=== PATIENT | female | born 2000 | race Caucasian/White ===

== ENCOUNTER 2019-07-08 18:15 | Emergency (ER) | payer OTHER, SELFPAY ==
--- NOTE | 2019-07-08 18:23 | ED.FEMALEGU ---
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 Patient states she started with white clumpy discharge on Saturday and she did take a dose of Diflucan that she had from the past. Patient states that she has had these before and the symptoms are similar. However patient states that the itching in the discharge did not completely clear up with the dose of Diflucan. Patient states that she has had some intermittent lower abdominal cramping however she is not sure if that is due to trying to start her menstrual cycle . Patient states that she had an IUD taken out in May and there is a possibility that she could be or symptomatic due to starting her menstrual cycle. Patient denies any dysuria, nausea, vomiting, low back pain. Patient denies any other acute complaints. No acute distress noted. Patient read the plan of care. Related Data Home Medications Medication Instructions Recorded Confirmed bupropion HCl 150 mg PO DAILY 07/08/19 07/08/19 bupropion HCl 300 mg PO DAILY 07/08/19 07/08/19 clonazepam 1 mg PO DIRECTED 07/08/19 07/08/19 doxepin 10 mg PO DAILY 07/08/19 07/08/19 ergocalciferol (vitamin D2) 1,250 mcg PO WEEKLY 07/08/19 07/08/19 escitalopram oxalate 20 mg PO DAILY 07/08/19 07/08/19 sumatriptan succinate 25 mg PO DIRECTED 07/08/19 07/08/19 trazodone 50 mg PO BID PRN 07/08/19 07/08/19 trazodone 100 mg PO HS 07/08/19 07/08/19 tretinoin 0.025 % TOPICAL HS 07/08/19 07/08/19 Allergies Allergy/AdvReac Type Severity Reaction Status Date / Time sulfamethoxazole Allergy Intermediate THROAT Verified 07/08/19 18:25 SWELLING trimethoprim Allergy Intermediate THROAT Verified 07/08/19 18:25 SWELLING amoxicillin Allergy Unknown Hives / Verified 07/08/19 18:25 Red Face Penicillins Allergy Unknown Hives / Verified 07/08/19 18:25 Red Face Review of Systems Review of Systems: Narrative: CONSTITUTIONAL: Denies fever, chills, or sweats. EYES: Denies visual changes, redness, or discharge. ENT: Denies rhinorrhea, congestion, sore throat, or otalgia. CARDIOVASCULAR: Denies chest pain, palpitations, or edema. RESPIRATORY: Denies cough or dyspnea. GASTROINTESTINAL: Reports of intermittent lower abdominal cramping without nausea, vomiting, diarrhea GENITOURINARY: Denies dysuria or hematuria. Reports of thick, white vaginal discharge and vaginal itching SKIN: Denies rash or itching. MUSCULOSKELETAL: Denies back pain, joint pain, or myalgia. NEUROLOGIC: Denies headache, numbness, or weakness. All other systems reviewed are negative, except as documented in HPI. PMFSH Comments At the time of my signature, I reviewed and agree with the nursing past medical, surgical, social, and family history. There is no relevant family history pertinent to the patient complaint. Exam Narrative: Exam Narrative: GENERAL: This is a well-nourished, well-developed patient, in no apparent distress. HEAD: normocephalic, atraumatic. EYES: PERRL. Sclera clear/white. Vision is grossly intact. EARS: External ears normal NOSE: External nose normal with no obvious nasal discharge THROAT: Mucous membranes moist NECK: Neck supple CARDIOVASCULAR: Regular rate and rhythm without murmurs, gallops, or rubs. RESPIRATORY: Clear to auscultation. Breath sounds equal bilaterally. No wheezes, rales, or rhonchi. GASTROINTESTINAL: Abdomen soft, non-tender, nondistended. : Deferred vaginal exam SKIN: warm, intact with no suspicious lesions or rash, good texture and turgor. NEURO: awake, alert, and oriented to person, place and time. There were no obvious focal neurologic abnormalities. EXTREMITIES: No clubbing, cyanosis, or edema. BACK: Negative bilateral CVA t
[2019-07-08 18:25] VITALS: BP 131/80; PULSE 108; RESP 20; TEMP 37; O2SAT 100
== END 2019-07-08 18:55 | disposition home or self-care (01) ==
PROVIDERS: Emergency Provider Nurse Practitioner Family; PCP Family Medicine
DX: B37.3 Candidiasis of vulva and vagina (principal)
CPT/HCPCS: 81003; 81025; 99213; G0463

== ENCOUNTER 2019-10-12 05:04 | Outpatient (CLI) | payer OTHER, SELFPAY ==
[2019-10-13 22:34] LABS: SARS-CoV-2 RNA PCR Negative
== END 2019-10-12 05:05 | disposition home or self-care (01) ==
LOC: ANHCOVIDDT 05:05
PROVIDERS: PCP Family Medicine; Visit Provider Obstetrics & Gynecology
DX: Z01.812 Encounter for preprocedural laboratory examination (principal); Z11.59 Encounter for screening for other viral diseases
CPT/HCPCS: 87635; C9803; U0003

== ENCOUNTER 2019-10-14 02:24 | Day surgery (SDC) | payer OTHER, SELFPAY ==
[2019-10-08 11:11] VITALS: BMI 29.2
--- NOTE | 2019-10-13 13:48 | WPDANESEPPF ---
Anes - Initial Pre Proc Eval Procedure: Operation Date: 10/14/19 13:30 Proposed Procedures p Diagnostic Laparoscopy - Efren Dietz MD Date/Time: 10/13/19 13:48 Surgeon: Efren Dietz MD Pre Op Diagnosis: Pelvic and Perineal Pain Patient Data Age: 19 Gender: F Height: 1.63 m Weight: 77.11 kg Allergies Allergy/AdvReac Type Severity Reaction Status Date / Time sulfamethoxazole Allergy Intermediate THROAT Verified 10/08/19 11:12 SWELLING trimethoprim Allergy Intermediate THROAT Verified 10/08/19 11:12 SWELLING amoxicillin Allergy Unknown Hives / Verified 10/08/19 11:12 Red Face Penicillins Allergy Unknown Hives / Verified 10/08/19 11:12 Red Face egg Allergy SWELLING, Verified 10/08/19 11:13 FEVER FLU VACCINE Allergy EGG ALLERGY Uncoded 10/08/19 11:13 Home Medications Medication Instructions Recorded Confirmed Type bupropion HCl 300 mg PO DAILY 07/08/19 10/08/19 History clonazepam 1 mg PO DIRECTED PRN 07/08/19 10/08/19 History doxepin 10 mg PO HS 07/08/19 10/08/19 History ergocalciferol (vitamin D2) 1,250 mcg PO WEEKLY 07/08/19 10/08/19 History sumatriptan succinate 25 mg PO DIRECTED PRN 07/08/19 10/08/19 History trazodone 100 mg PO HS 07/08/19 10/08/19 History albuterol sulfate 5 mg INHALATION Q6H PRN 10/08/19 10/08/19 History albuterol sulfate [ProAir HFA] 1 inh INHALATION QID PRN 10/08/19 10/08/19 History Patient hx anesthesia problems: none Family hx anesthesia problems: none PMFSH Past Medical History Medical History (Updated 10/13/19 @ 13:50 by Juanjose Churchill MD) Anxiety Asthma Chiari malformation Depression Overweight (BMI 25.0-29.9) Surgical History Surgical History (Updated 10/13/19 @ 13:49 by Juanjose Churchill MD) Hx of cholecystectomy Social History Social History Smoking status: Never smoker Spiritual care concerns: No Anes - Eval Final PreProcedure Day of Procedure 10/13/19 13:48 Patient weight: overweight Heart: regular rate and rhythm Lungs: clear to auscultation and normal air movement Airway: Mallampati scale class II Neurological: alert and oriented Last oral intake: >/= 8 hours ASA classification: II Emergent: no Anesthetic plan: proceed Anesthesia type and monitoring: general ETT Informed Consent: The patient's anesthetic plan and its attendant risks and benefits were discussed with the patient/family/POA. Questions were solicited and answers provided to the satisfaction of the patient/family/POA.
[2019-10-14] VITALS (10 sets, daily range): BP systolic 102–134; BP diastolic 61–106; PULSE 74–115; RESP 16–22; TEMP 36.4–36.8; O2SAT 97–100
[2019-10-14] MEDS: ACETAMINOPHEN 500 MG TABLET 1000 MG PO (11:30)
[2019-10-14] MEDS: LACTATED RINGERS 1,000 ML 30 ML IV CONT ×3 (11:30→14:43)
[2019-10-14] MEDS: KETOROLAC 15 MG/ML VIAL (*BKC) IV PUSH (11:30)
--- NOTE | 2019-10-14 11:33 | WPDHPUPDATE1 ---
History and Physical Update Update Date/Time: 10/14/19 11:33 History and Physical has been reviewed, including an updated exam of the patient. There are NO changes in the patient's condition. Risks, benefits, and alternatives have been discussed and questions answered. Patient agrees to proceed with procedure.
--- NOTE | 2019-10-14 14:09 | P.OP_ITS ---
Procedure Note - Detailed Date of procedure: 10/14/19 Pre-op diagnosis: Pelvic and Perineal Pain Post-op diagnosis: same (endometriosis, retrograde menstruation) Procedure performed: Diagnostic laparoscopy, radical resection of endometriosis, adhesiolysis 1 hour Description of procedure: The patient was taken the operating room. She was prepped and draped in the dorsal lithotomy position after induction of general anesthesia. A 5 mm left upper quadrant incision was made in the abdominal skin with a scalpel. A 5 mm trocar was inserted the intra-abdominal cavity under direct visualization of the scope. A 5 mm left lower quadrant incision was made with the scalp on the abdominal skin and a 5 mm trocar was inserted the intra- abdominal cavity under direct visualization of the scope. A 5 mm infraumbilical incision was made with scalpel and a 5 mm trocar was inserted into the intra- abdominal cavity under direct visualization of the scope. Using sharp and blunt dissection the peritoneum in the posterior cul-de-sac was completely removed with the exception the rectal peritoneum and the posterior uterine peritoneum superiorly. This was densely scarred and required an hour of adhesiolysis. The ureters were dissected out from the pelvic brim down to the uterine arteries. The pelvis was irrigated with copious amounts of normal saline. Interceed was placed over both sides of the posterior cul-de-sac. The pneumoperitoneum was reduced. The trocars were removed. The patient was taken recovery room stable condition. Sponge lap and needle counts were correct x2. Anesthesia: GETA Surgeon: Efren Dietz MD Estimated blood loss (mL): 100 Drains: No Packing: No Complications: No immediate complications Condition: stable Disposition: PACU Findings: hemoperitoneum, diffuse peritoneal endometrial implants throughout the posterior cul-de-sac. There was some small endometrial implants on the anterior left side of the pelvis. The tubes and ovaries and uterus appeared normal
[2019-10-14] MEDS: MIDAZOLAM HCL 2 MG/2 ML VIAL 1 MG IV PUSH (14:23)
--- NOTE | 2019-10-14 15:01 | SUR.PHASEI ---
1410 pt very restless, wouldn't open eyes and follow commands, anxious. shruthi blanco, at bedside along with christy hawkins. 1mg versed iv push given and 0.5 mg iv push fentanyl given. trying to get pt too take deep breaths and calm down. 1415 pt seems to be doing better breathing more regular, vss, on roomair. still having 10/10 sharp pain in abdomen. 1420 pt resting now, vss, on room air
[2019-10-14] MEDS: ONDANSETRON INJ 4 MG/2 ML VIAL IV PUSH (15:35)
== END 2019-10-14 16:00 | disposition home or self-care (01) ==
PROVIDERS: PCP Family Medicine; Visit Provider Obstetrics & Gynecology
PROC: (CPT 49320; principal; 2019-10-14 13:30)
DX: R10.2 Pelvic and perineal pain (principal); N80.3 Endometriosis of pelvic peritoneum; J45.909 Unspecified asthma, uncomplicated; F41.8 Other specified anxiety disorders
CPT/HCPCS: 58662; 87635; 88305; A9270; C9803; J1100; J1170; J1200; J1885; J2250; J2405; J2704; J2710; J3010; J7120; U0003

== ENCOUNTER 2021-04-17 14:47 | Emergency (ER) | payer OTHER, SELFPAY ==
--- NOTE | ~2021-04-17 | US_ITS ---
EXAMINATION: US abdomen limited EXAM DATE: 04/17/2021 18:43 INDICATION: Transaminitis. TECHNIQUE: Multiple grayscale and Doppler images of the abdomen right upper quadrant were obtained (b y a technologist who performed the scan) and subsequently reviewed. There is no prior study for jeanie de león. FINDINGS: The pancreatic head and body are normal in appearance. The pancreatic tail is not visualized. The l iver has normal echogenicity and contour. There are no focal liver lesions identified. There is no evidence of intrahepatic biliary duct dilation. Portal venous flow was seen in the hepatopedal, nor mal direction and has normal Doppler waveform. No right-sided hydronephrosis. Common bile duct measures 3 mm, which is normal. The gallbladder fossa is unremarkable. IMPRESSION: 1. Unremarkable abdominal ultrasound exam. Reviewed, dictated and finalized at location G. W
[2021-04-17 14:51] VITALS: BP 117/86; PULSE 123; RESP 16; O2SAT 99
[2021-04-17 16:03] LABS: Add Urine Microscopic? YES; Appearance Urine Cloudy (Clear); Basophils Percent Auto 0.2 % (0.2-1.2); Bilirubin Urine Negative (Negative); Blood Urine Negative (Negative); Color Urine Yellow (Yellow); Eosinophils Absolute Auto 0.1 K/mm3 (0-0.3); Eosinophils Percent Auto 0.6 % (0-4.4); Glucose Urine UA Negative (Negative); Hematocrit 43.9 % (37.0-47.0); Hemoglobin 14.8 g/dL (12.0-15.0); Immature Granulocyte Absolute 0.02 K/mm3 (0.00-0.031); Immature Granulocyte Percent A 0.2 % (0-0.5); Ketones Urine Negative (Negative); Leukocyte Esterase Ur Trace LEU/UL (Negative); Lymphocytes Percent Auto 27.7 % (18.3-44.2); Mean Corpuscular HGB Conc 33.7 g/dl (32-36); Mean Corpuscular Hemoglobin 30.7 pg (26-34); Mean Corpuscular Volume 91.1 fl (80-100); Mean Platelet Volume 9.5 fl (7.4-10.4); Monocytes Absolute Auto 0.9 K/mm3 (0.1-0.6); Monocytes Percent Auto 8.5 % (2.6-8.5); Mucus Urine Heavy /lpf; Neutrophils Absolute Auto 6.6 K/mm3 (1.3-6.7); Neutrophils Percent Auto 62.8 % (45.5-73.1); Nitrate Urine Negative (Negative); Platelet Count Result 342 k/mm3 (150-375); Protein Urine Negative (Negative); Red Blood Count 4.82 M/mm3 (4.2-5.4); Red Cell Distribution Width 12.6 % (11.5-14.5); Specific Grav Ur 1.023 (1.001-1.035); Squamous Epithelial Cell Urine Many /hpf (Few); Urobilinogen Urine Negative mg/dL (<2.0); WBC Urine 0-3 /hpf; White Blood Count 10.5 K/mm3 (4.5-10.0)
[2021-04-17] MEDS: SODIUM CHLORIDE 0.9% IV 1,000 ML 999 ML IV CONT (16:10)
[2021-04-17 16:16] LABS: Alanine Aminotransferase 43 U/L (4-35); Albumin Level 4.8 g/dL (3.5-5.1); Alkaline Phosphatase 87 U/L (38-126); Anion Gap 7 mmol/L (8-16); Aspartate Amino Transferase 52 U/L (14-36); Bilirubin,Total 0.7 mg/dL (0.2-1.3); Blood Urea Nitrogen 5 mg/dL (7-17); Calcium 9.8 mg/dL (8.4-10.2); Carbon Dioxide 21 mmol/L (22-30); Chloride 106 mmol/L (98-107); Estimated CRCL calculation 184 ml/min; Estimated Glomerular Filt Rate > 60; Glucose 92 mg/dL (65-110); Lipase 150 U/L (23-300); Potassium 3.9 mmol/L (3.4-5.0); Sodium 134 mmol/L (137-145)
--- NOTE | 2021-04-17 16:32 | ED.HA ---
HPI - Headache General Chief Complaint: Headache Stated Complaint: N/V 10WEEKS PREG Time Seen by Provider: 04/17/21 15:33 Source: patient Mode of arrival: ambulatory Limitations: no limitations History of Present Illness HPI Narrative: This is a 20 year old , about 9 weeks , that presents to the ER for nausea and vomiting noted over the last couple of days. Also reports a migraine. Reports a pounding headache. Does report history of migraines. She took Tylenol this morning this little relief. Her OB is Dr. Dietz. She has had a normal US this . Denies pelvic pain or vaginal bleeding. Related Data Home Medications Medication Instructions Recorded Confirmed bupropion HCl 300 mg PO DAILY 07/08/19 10/14/19 clonazepam 1 mg PO DIRECTED PRN 07/08/19 10/14/19 ergocalciferol (vitamin D2) 1,250 mcg PO WEEKLY 07/08/19 10/14/19 sumatriptan succinate 25 mg PO DIRECTED PRN 07/08/19 10/08/19 albuterol sulfate 5 mg INHALATION Q6H PRN 10/08/19 10/08/19 albuterol sulfate [ProAir HFA] 1 inh INHALATION QID PRN 10/08/19 10/08/19 quetiapine 25 mg PO HS 10/14/19 10/14/19 Allergies Allergy/AdvReac Type Severity Reaction Status Date / Time amoxicillin Allergy Severe Hives / Verified 10/14/19 11:39 Red Face Penicillins Allergy Severe Hives / Verified 10/14/19 11:39 Red Face egg Allergy Intermediate SWELLING, Verified 10/14/19 11:39 FEVER Influenza Virus Vaccines Allergy Intermediate Egg Allergy Verified 04/17/21 15:39 sulfamethoxazole Allergy Intermediate THROAT Verified 10/08/19 11:12 SWELLING trimethoprim Allergy Intermediate THROAT Verified 10/08/19 11:12 SWELLING Review of Systems Review of Systems: CONSTITUTIONAL: Denies fever GASTROINTESTINAL: Reports nausea and vomiting. Denies abdominal pain NEUROLOGIC: Reports headache. Denies numbness, or weakness. All systems reviewed & are unremarkable except as noted in HPI and below PMFSH Past Medical History Medical History (Updated 04/17/21 @ 19:52 by Glo Irene PA-C) Anxiety Asthma Chiari malformation Depression Overweight (BMI 25.0-29.9) Surgical History Surgical History (Updated 10/13/19 @ 13:49 by Juanjose Churchill MD) Hx of cholecystectomy Social History Social History Smoking status: Never smoker Spiritual care concerns: No Exam Narrative: GENERAL: Well-appearing, well-nourished, and in no acute distress. HEAD: Normocephalic, atraumatic. EYES: PERRLA and EOMI. ENT: Nares clear, no rhinorrhea or epistaxis. Mucous membranes moist. Oropharynx without tonsillar hypertrophy exudate or other lesions. Bilateral TMs pearly johansen non-bulging NECK: Supple. No adenopathy or masses. CHEST: Clear to auscultation. No respiratory distress. No wheezes rales or rhonchi HEART: Regular rate and rhythm. No murmur heard. Normal peripheral pulses. EXTREMITIES: Normal range of motion. No edema. Strength equal in bilateral upper and lower extremities (5/5) SKIN: Warm, dry, no rash. NEURO: No focal deficits. Alert and oriented x3. Cranial nerves II through XII grossly intact. Normal heel to lo PSYCH: Normal mood and affect Course Consultations Consultation #1: Spoke with Dr. Dietz about patient and workup who will follow up in clinic. Date: 04/17/21 Time: 19:49 Vital Signs Vital signs: Vital Signs Pulse Rate 123 H 04/17/21 14:51 Respiratory Rate 16 04/17/21 14:51 Blood Pressure 117/86 04/17/21 14:51 Pulse Oximetry 99 04/17/21 14:51 Pulse Rate 123 H 04/17/21 14:51 Respiratory Rate 16 04/17/21 14:51 Blood Pressure 117/86 04/17/21 14:51 Pulse Oximetry 99 04/17/21 14:51 MDM - Headache MDM Narrative Medical decision making narrative: Patient presents to the emergency department for nausea and vomiting of . Also reporting a migraine over the last couple of days. She is afebrile and nontoxic-appearing. Patient is neurologically intact. Known history of migraines and sees neurology f
[2021-04-17] MEDS: METOCLOPRAMIDE HCL INJ 10 MG/2 ML VIAL IV PUSH (16:46)
[2021-04-17] MEDS: diphenhydrAMINE HCl INJ 50 MG/ML VIAL 25 MG IV PUSH (16:46)
--- NOTE | 2021-04-17 19:19 | PC.NURSE ---
Patient given saltine crackers and a last mist.
[2021-04-17 19:47] VITALS: TEMP 36.5
== END 2021-04-17 20:11 | disposition home or self-care (01) ==
PROVIDERS: Physician Assistant; Emergency Provider Family Medicine; PCP Family Medicine
DX: O21.9 Vomiting of pregnancy, unspecified (principal); O99.351 Diseases of the nervous system complicating pregnancy, first trimester; G43.909 Migraine, unspecified, not intractable, without status migrainosus; O99.511 Diseases of the respiratory system complicating pregnancy, first trimester; J45.909 Unspecified asthma, uncomplicated; O99.341 Other mental disorders complicating pregnancy, first trimester; F41.9 Anxiety disorder, unspecified; F32.A Depression, unspecified; Z3A.09 9 weeks gestation of pregnancy
CPT/HCPCS: 36415; 76705; 80053; 81001; 83690; 84702; 85025; 87804; 96361; 96374; 96375; 99284; J0131; J1200; J2765; J7030

== ENCOUNTER 2021-08-10 18:15 | Emergency (ER) | payer OTHER, SELFPAY ==
[2021-08-10 18:20] VITALS: BP 126/82; PULSE 107; RESP 18; TEMP 36.6; O2SAT 100
--- NOTE | 2021-08-10 18:31 | ED.EAR ---
HPI - Ear Problem General Chief complaint: Ear Stated complaint: Ear Pain Time Seen by Provider: 08/10/21 18:27 Source: patient and RN notes reviewed Mode of arrival: ambulatory Limitations: no limitations History of Present Illness HPI Narrative: 21-year-old female who is 27 weeks presents concern for bilateral ear pain. Reports it started yesterday. She reports she has chronic sinus congestion and drainage. She reports mild sore throat. She denies fever, bodies, chills, sweats, cough 20, shortness of breath. She denies any other [id number] intervention MD Complaint: ear pain Related Data Home Medications Medication Instructions Recorded Confirmed Tablet 1 tablet PO DAILY 08/10/21 08/10/21 Allergies Allergy/AdvReac Type Severity Reaction Status Date / Time amoxicillin Allergy Severe Hives / Verified 08/10/21 18:17 Red Face Penicillins Allergy Severe Hives / Verified 08/10/21 18:17 Red Face egg Allergy Intermediate SWELLING, Verified 08/10/21 18:17 FEVER Influenza Virus Vaccines Allergy Intermediate Egg Allergy Verified 08/10/21 18:17 sulfamethoxazole Allergy Intermediate THROAT Verified 08/10/21 18:17 SWELLING trimethoprim Allergy Intermediate THROAT Verified 08/10/21 18:17 SWELLING Review of Systems Review of Systems: CONSTITUTIONAL: Denies malaise, chills, sweats, or fever. EYES: Denies visual changes, redness, or discharge. ENT: Reports rhinorrhea, congestion, sore throat, bilateral ear pain CARDIOVASCULAR: Denies chest pain, palpitations, or edema. RESPIRATORY: Denies cough. Denies dyspnea. GASTROINTESTINAL: Denies abdominal pain, nausea, vomiting, diarrhea SKIN: Denies rash or itching. MUSCULOSKELETAL: Denies myalgia. NEUROLOGIC: Denies headache. All systems reviewed & are unremarkable except as noted in HPI and below PMFSH Past Medical History Medical History (Updated 08/10/21 @ 18:36 by Paula Estrada NP) Anxiety Asthma Chiari malformation Depression Overweight (BMI 25.0-29.9) Surgical History Surgical History (Updated 10/13/19 @ 13:49 by Juanjose Churchill MD) Hx of cholecystectomy Social History Social History Smoking status: Never smoker Spiritual care concerns: No Comments At time of signature, agree with nursing past medical, surgical, social and family history. There is no relevant family history pertinent to the presenting complaint Exam Narrative: GENERAL: Well-appearing, well-nourished, and in no acute distress. HEAD: Normocephalic EYES: PERRLA, conjunctivae clear ENT: Nares clear, clear discharge. Mucous membranes moist. TM pearly johansen with dull light reflex bilaterally; no tragal tenderness. Oropharynx not erythematous without lesions. Tonsils not enlarged and without exudate, no drooling, no hoarseness, no trismus, uvula midline. NECK: Supple. No lymphadenopathy CHEST: Clear to auscultation, breath sounds equal. No wheezing, rhonchi, rales, or stridor. No respiratory distress, speaks in full sentences. HEART: Regular rate and rhythm. No murmur heard. SKIN: Warm, dry, no rash. NEURO: Alert and oriented x3. PSYCH: Normal mood and affect Course Course Emergency Course: Patient is aware of diagnosis, understands and agrees to treatment plan. Anticipatory guidance given. Patient agrees to follow-up as directed and is aware of reasons to seek care at the emergency department. Portions of this record may have been created with voice recognition software Level of Care: Express Care Visit Vital Signs Vital signs: Vital Signs Temperature 97.9 F 08/10/21 18:20 Pulse Rate 107 H 08/10/21 18:20 Respiratory Rate 18 08/10/21 18:20 Blood Pressure 126/82 08/10/21 18:20 Pulse Oximetry 100 08/10/21 18:20 Oxygen Delivery Room Air 08/10/21 18:20 Temperature 97.9 F 08/10/21 18:20 Pulse Rate 107 H 08/10/21 18:20 Respiratory Rate 18 08/10/21 18:20 Blood Pressure 126/82 08/10/21 18:20 Pulse Oxim
== END 2021-08-10 18:43 | disposition home or self-care (01) ==
PROVIDERS: Emergency Provider Nurse Practitioner; PCP Family Medicine
DX: H69.90 Unspecified Eustachian tube disorder, unspecified ear (principal); J45.909 Unspecified asthma, uncomplicated
CPT/HCPCS: 99211; G0463

== ENCOUNTER 2021-09-07 15:18 | Observation (INO) | payer OTHER, BC, SELFPAY ==
[2021-09-07 15:46] VITALS: BP 129/78; PULSE 93
[2021-09-07 16:01] VITALS: BP 118/70; PULSE 86
[2021-09-07 16:04] LABS: Add Urine Microscopic? YES; Appearance Urine Slightly Cloudy (Clear); Bilirubin Urine Negative (Negative); Blood Urine Negative (Negative); Color Urine Yellow (Yellow); Glucose Urine UA Negative (Negative); Ketones Urine Negative (Negative); Leukocyte Esterase Ur 1+ LEU/UL (NEGATIVE); Nitrate Urine Negative (Negative); Protein Urine Negative (Negative); Urobilinogen Urine 0.2 mg/dL (<2.0); pH Urine 6.5 (5.0-9.0)
[2021-09-07 16:10] LABS: Bacteria Urine 1+ /hpf; Mucus Urine Rare /lpf; Squamous Epithelial Cell Urine Many /hpf (Few); WBC Urine 0-3 /hpf (0-3)
[2021-09-07 16:16] VITALS: BP 119/72; PULSE 85
--- NOTE | 2021-09-07 16:36 | OBADM ---
This patient, Cee Hodge, admitted to the OB room OB Post 112 for observation. Patient/family oriented to hospital policies and general routines including ID bracelet, bed and alarms, visiting hours, pain management, procedures, bathroom and other care routines, personal items, smoking policy, room service/diet, and visiting hours. Patient/Family are encouraged to report perceived risks to care and to ask questions if they do not understand what they are told or what they should do.
--- NOTE | 2021-09-07 16:37 | PC.NURSE ---
[id number]- Spoke with Dr. Dietz, Orders to do SVE and discharge to home.
--- NOTE | 2021-10-02 22:03 | PM.OBTRLD ---
OB - Triage/Final Diagnosis Visit Information Comments/Additional reasons for admission: I have assessed the risk for this patient, Cee Hodge, and determined that she would benefit from observation care. Evaluation Laboratory results: Laboratory Tests 09/07/21 15:39 Urine Color Yellow Urine Appearance Slightly cloudy Urine pH 6.5 Ur Specific [place] 1.010 Urine Protein Negative Urine Glucose (UA) Negative Urine Ketones Negative Ur Blood (Man) Negative Urine Nitrate Negative Urine Bilirubin Negative Urine Urobilinogen 0.2 Ur Leukocyte Esterase 1+ H Urine RBC 3-5 H Urine WBC 0-3 Ur Squamous Epith Cells Many H Urine Bacteria 1+ H Urine Mucus Rare Final Diagnosis (1) False labor: Code(s): O47.9 - False labor, unspecified Status: Acute
== END 2021-09-07 16:35 | disposition home or self-care (01) ==
PROVIDERS: Admitting Provider Obstetrics & Gynecology; PCP Family Medicine; Visit Provider Obstetrics & Gynecology
DX: O47.03 False labor before 37 completed weeks of gestation, third trimester (principal); Z3A.31 31 weeks gestation of pregnancy
CPT/HCPCS: 81001; 87086; 87088; G0378; G0379

== ENCOUNTER 2021-10-08 20:13 | Outpatient (CLI) | payer OTHER, BC, SELFPAY ==
[2021-10-08] MEDS: METOCLOPRAMIDE HCL 10 MG TABLET PO (22:45)
[2021-10-08] MEDS: diphenhydrAMINE HCl CAP 25 MG CAPSULE PO (22:45)
[2021-10-08 22:49] VITALS: BMI 34.3
== END 2021-10-08 23:00 | disposition home or self-care (01) ==
PROVIDERS: PCP Family Medicine; Visit Provider Obstetrics & Gynecology
DX: O47.9 False labor, unspecified (principal); Z3A.00 Weeks of gestation of pregnancy not specified
CPT/HCPCS: 99199; A9270

== ENCOUNTER 2021-10-15 21:14 | Inpatient (IN) | payer OTHER, BC, SELFPAY ==
[2021-10-15] VITALS (7 sets, daily range): BP systolic 136–144; BP diastolic 81–93; PULSE 74–99; TEMP 36.8–37
--- NOTE | ~2021-10-15 | CT_ITS ---
EXAMINATION: CT brain wo con DATE: 10/16/2021 08:36 INDICATION: Headache, preeclampsia. Chiari malformation. TECHNIQUE: Computed tomography (CT) of the head was performed without intravenous contrast. The mA wa s adjusted according to patient size. Iterative reconstruction technique was employed. Exam dose: 52 9.67 mGy-cm total exam DLP. COMPARISON: None FINDINGS: Status post lower mid occipital craniectomy, due to history of Chiari malformation (abnorma l protrusion of cerebellum into foramen magnum). No hydrocephalus. No intracranial mass lesion or hemorrhage, midline shift or mass effect. Normal johansen-white matter differentiation. No subdural or epidural hematoma. The orbital contents are unremarkable. No fracture or bone destruction of the cranial vault. Mastoid air cells and included paranasal sinuses are normally developed and aerated. IMPRESSION: Status post posterior fossa decompression surgery (midline lower occipital craniectomy) for Chiari I malformation No significant intracranial abnormality Reviewed, dictated and finalized at [facility]. Reviewed, dictated and finalized at [facility]. IMPRESSION: Status post posterior fossa decompression surgery (midline lower o ccipital craniectomy) for Chiari I malformation No significant intracranial abnormality
--- NOTE | 2021-10-15 19:37 | PC.NURSE ---
Clarified medication order for pain medication with Dr. Dietz. Order for 10mg of oxycodone PO ordered.
[2021-10-15 20:02] LABS: Basophils Percent Auto 0.2 % (0.2-1.2); Eosinophils Percent Auto 0.4 % (0-4.4); Hematocrit 32.7 % (37.0-47.0); Hemoglobin 10.4 g/dL (12.0-15.0); Immature Granulocyte Absolute 0.04 K/mm3 (0.00-0.031); Immature Granulocyte Percent A 0.4 % (0-0.5); Lymphocytes Absolute Auto 2.17 K/mm3 (0.9-3.2); Lymphocytes Percent Auto 20.6 % (18.3-44.2); Mean Corpuscular HGB Conc 31.8 g/dl (32-36); Mean Corpuscular Hemoglobin 27.4 pg (26-34); Mean Corpuscular Volume 86.1 fl (80-100); Mean Platelet Volume 11.2 fl (7.4-10.4); Monocytes Absolute Auto 0.9 K/mm3 (0.1-0.6); Monocytes Percent Auto 8.3 % (2.6-8.5); Neutrophils Absolute Auto 7.4 K/mm3 (1.3-6.7); Neutrophils Percent Auto 70.1 % (45.5-73.1); Platelet Count Result 270 k/mm3 (150-375); Red Cell Distribution Width 13.4 % (11.5-14.5); White Blood Count 10.5 K/mm3 (4.5-10.0)
[2021-10-15] MEDS: oxyCODONE HCL (*CRX) 5 MG TAB IR 10 MG PO (20:03)
[2021-10-15] MEDS: BETAMETHASONE SOD PHOS/ACETATE 30 MG/5 ML VIAL 12 MG IM (20:04)
[2021-10-15 20:13] LABS: Alanine Aminotransferase 13 U/L (6-35); Albumin Level 3.4 g/dL (3.5-5.1); Alkaline Phosphatase 194 U/L (38-126); Anion Gap 11 mmol/L (8-16); Aspartate Amino Transferase 23 U/L (14-36); Bilirubin,Total 0.5 mg/dL (0.2-1.3); Blood Urea Nitrogen 3 mg/dL (7-17); Calcium 8.8 mg/dL (8.4-10.2); Carbon Dioxide 21 mmol/L (22-30); Chloride 106 mmol/L (98-107); Estimated Glomerular Filt Rate > 60; Glucose 95 mg/dL (65-110); Potassium 2.9 mmol/L (3.4-5.0); Sodium 138 mmol/L (137-145)
--- NOTE | 2021-10-15 20:21 | PC.NURSE ---
Dr. Dietz in unit, lab results reviewed with Dr. Ditez. No new orders.
[2021-10-15 20:26] LABS: Appearance Urine Clear (Clear); Bilirubin Urine Negative (Negative); Blood Urine Negative (Negative); Color Urine Yellow (Yellow); Glucose Urine UA Negative (Negative); Ketones Urine Negative (Negative); Leukocyte Esterase Ur Negative LEU/UL (Negative); Nitrate Urine Negative (Negative); Protein Urine Negative (Negative); Urobilinogen Urine 0.2 mg/dL (<2.0)
[2021-10-15 20:29] LABS: Bacteria Urine Trace /hpf; Creatinine Urine 54.8 mg/dL; Squamous Epithelial Cell Urine Many /hpf (Few); Total Protein Urine Random 18 mg/dL; Transitional Epi Cells Urine Rare /hpf (None Seen); Ur Ttl Prot Creatinine Ratio 0.33 mg/mg (0-0.20)
[2021-10-15 20:37] LABS: Add Urine Microscopic? YES
--- NOTE | 2021-10-15 20:39 | PM.IMHP ---
H&P: HPI History of Present Illness Date/Time: 10/15/21 20:39 Chief Complaint: headache Narrative: this patient is a 21-year-old at 36 weeks gestation with a history of Chiari malformation and neurosurgery. She presented complaining of headache. Her is also complicated by gestational hypertension. The headache is a frontal headache it is pulsatile. She does not state that is the worst headache she has ever had. She reports some increased swelling. She reports some blurry vision. She denies any chest pain, shortness of breath. She denies any nausea, vomiting, fever, chills. She denies any loss of fluid, she denies any contractions, she denies any vaginal bleeding. Review of Systems Review of Systems: All systems reviewed & are unremarkable except as noted in HPI and below Constitutional: Constitutional: Denies chills, Denies fatigue, Denies fever(s) and Denies weakness Eyes: Eyes: Denies blurry vision, Denies change in vision, Denies loss of peripheral vision, Denies loss of vision, Denies other visual disturbances and Denies eye pain ENT: Denies vertigo, Denies dizziness, Denies hearing loss, Denies mouth pain, Denies nasal obstruction, Denies neck mass and Denies neck pain Cardiovascular: Cardiovascular: Denies chest pain, Denies diaphoresis, Denies syncope, Denies leg edema and Denies dyspnea Respiratory: Respiratory: Denies chest congestion, Denies cough, Denies hemoptysis, Denies dyspnea and Denies wheezing Gastrointestinal: Gastrointestinal: Denies abdominal pain, Denies constipation, Denies diarrhea, Denies nausea and Denies vomiting Genitourinary: Genitourinary: Denies hematuria, Denies change in libido, Denies nocturia, Denies genital lesions, Denies flank pain and Denies urinary urgency Musculoskeletal: Musculoskeletal: Denies abnormal gait, Denies back pain, Denies myalgias, Denies arthralgias, Denies joint swelling, Denies muscle weakness and Denies neck pain Integumentary/Breasts: Skin/Breast: Denies swelling, Denies breast pain, Denies breast mass, Denies dry skin, Denies nipple discharge, Denies unusual bruising and Denies jaundice Neurologic: Denies Neuro-related abnormal movements, Denies Abnormal speech present, Denies abnormal gait, Denies behavioral changes, Denies confusion, Denies vertigo, Denies dizziness, Denies syncope, Denies loss of vision, Denies memory loss, Denies convulsions and Denies weakness Psychiatric: Psychiatric: Denies abnormal sleep pattern, Denies behavioral changes, Denies change in libido, Denies confusion, Denies depression, Denies anhedonia and Denies memory loss Endocrine: Endocrine: Reports no additional endocrine complaints, Denies change in libido and Denies fatigue Hematologic/Lymphatic: Hematologic/Lymphatic: Reports no additional hematologic/lymphatic complaints Allergic/Immunologic: Allergic/Immunologic: Reports no additional allergic/immunologic complaints and Denies wheezing PMFSH Past Medical History Medical History (Updated 10/15/21 @ 20:42 by Efren Dietz MD) Anxiety Asthma Chiari malformation Depression Overweight (BMI 25.0-29.9) Surgical History Surgical History (Updated 10/13/19 @ 13:49 by Juanjose Churchill MD) Hx of cholecystectomy Family History Family History (Updated 10/13/21 @ 15:55 by Benito Baeza RN) Father Hypertension High cholesterol Mother Hypertension Cholelithiases Gilbert syndrome Mitral valve prolapse High cholesterol Migraines Endometriosis Kidney stones Cerebrovascular accident Sibling Migraines Asthma Grandparent Hypertension Ovarian cancer Lung cancer Pancreatic cancer Grandparent Diabetes mellitus Hypotension Renal cancer Gynecomastia, male Grandparent Cerebrovascular accident Social History Social History Smoking status: Never smoker Substance use: never Spiritual care concerns: No Meds Home Medications and Allergies Home Medications Medication
--- NOTE | 2021-10-15 21:13 | PC.NURSE ---
Updated Dr. Dietz of lab results. Patient states headache remains after pain medication. HIP WNL. Patient denies any vision changes or epigastric pain. Order to keep patient for evaluation over night, order received.
[2021-10-15] MEDS: CYCLOBENZAPRINE HCL 10 MG TABLET PO (22:11)
[2021-10-16] VITALS (14 sets, daily range): BP systolic 118–146; BP diastolic 71–94; PULSE 88–114; RESP 16; TEMP 36.8–37.2
[2021-10-16] MEDS: ACETAMINOPHEN 500 MG TABLET 1000 MG PO (02:52)
[2021-10-16] MEDS: oxyCODONE HCL (*CRX) 5 MG TAB IR 10 MG PO ×2 (02:53→10:30)
[2021-10-16] MEDS: CYCLOBENZAPRINE HCL 10 MG TABLET PO ×2 (04:11→18:32)
--- NOTE | 2021-10-16 08:12 | PM.OBPNVD ---
OB - PN: Subj Subjective Date/time seen: 10/16/21 08:12 Headache, frontal, throbbing, apparently comfortable by appearance, blurry vision, no contractions, vaginal bleeding, loss of fluid OB - PN: Obj Data Labs CBC & Chem 7: 10/15/21 19:54 10/15/21 19:54 Labs: Laboratory Results - last 24 hr 10/15/21 10/15/21 10/15/21 19:54 19:54 19:54 WBC 10.5 H RBC 3.80 L Hgb 10.4 L D Hct 32.7 L MCV 86.1 MCH 27.4 MCHC 31.8 L RDW 13.4 Plt Count 270 MPV 11.2 H Immature Gran % (Auto) 0.4 Neut % (Auto) 70.1 Lymph % (Auto) 20.6 [place] % (Auto) 8.3 Eos % (Auto) 0.4 Baso % (Auto) 0.2 Lymph # (Auto) 2.17 [place] # (Auto) 0.9 H Eos # (Auto) 0.0 Baso # (Auto) 0.0 Abs Immat Gran (auto) 0.04 H Absolute Neuts (auto) 7.4 H Absolute Nucleated RBC 0.0 Nucleated RBC % 0.0 Sodium 138 Potassium 2.9 L Chloride 106 Carbon Dioxide 21 L Anion Gap 11 BUN 3 L Creatinine 0.60 L Estim Creat Clear Calc Not Reportable Estimated GFR > 60 Glucose 95 Uric Acid 4.0 Calcium 8.8 Total Bilirubin 0.5 AST 23 ALT 13 Alkaline Phosphatase 194 H Total Protein 6.0 L Albumin 3.4 L Urine Color Urine Appearance Urine pH Ur Specific [place] Urine Protein Urine Glucose (UA) Urine Ketones Ur Blood (Man) Urine Nitrate Urine Bilirubin Urine Urobilinogen Leukocyte Esterase Rfl Urine RBC Urine WBC Ur Squamous Epith Cells Ur Transition Epith Cell Urine Bacteria U Random Total Protein 18 Urine Creatinine 54.8 Protein/Creat Ratio 2 0.33 H 10/15/21 19:54 WBC RBC Hgb Hct MCV MCH MCHC RDW Plt Count MPV Immature Gran % (Auto) Neut % (Auto) Lymph % (Auto) [place] % (Auto) Eos % (Auto) Baso % (Auto) Lymph # (Auto) [place] # (Auto) Eos # (Auto) Baso # (Auto) Abs Immat Gran (auto) Absolute Neuts (auto) Absolute Nucleated RBC Nucleated RBC % Sodium Potassium Chloride Carbon Dioxide Anion Gap BUN Creatinine Estim Creat Clear Calc Estimated GFR Glucose Uric Acid Calcium Total Bilirubin AST ALT Alkaline Phosphatase Total Protein Albumin Urine Color Yellow Urine Appearance Clear Urine pH 7.0 Ur Specific [place] 1.010 Urine Protein Negative Urine Glucose (UA) Negative Urine Ketones Negative Ur Blood (Man) Negative Urine Nitrate Negative Urine Bilirubin Negative Urine Urobilinogen 0.2 Leukocyte Esterase Rfl Negative Urine RBC 3-5 H Urine WBC 4-6 H Ur Squamous Epith Cells Many H Ur Transition Epith Cell Rare Urine Bacteria Trace U Random Total Protein Urine Creatinine Protein/Creat Ratio 2 OB - PN A/P Assessment and Plan (1) Headache: Code(s): R51.9 - Headache, unspecified Status: Acute (2) Chiari malformation: Status: Acute Plan 21-year-old 1 at 36 weeks gestation with preeclampsia, headache, Chiari malformation. Uncertain of headache is secondary to Chiari malformation or a symptom of severe preeclampsia. Pressures are not suggestive of severe preeclampsia. Will get Neurology to look at her today. will get a CT of her head. she received 1 dose of steroids. There is reassuring status. Time Spent With Patient Time: Total time spent is greater than 50% in coordination of care (as documented) at patient's floor/unit and/or counseling patient: Review of Systems Review of Systems: All systems reviewed & are unremarkable except as noted in HPI and below Constitutional: Constitutional: Denies chills, Denies fatigue, Denies fever(s) and Denies weakness Eyes: Eyes: Denies blurry vision, Denies change in vision, Denies loss of peripheral vision, Denies loss of vision, Denies other visual disturbances and Denies eye pain ENT: Denies vertigo, Denies dizziness, Denies hearing loss, Denies mouth pain, Denies nasal obstr
[2021-10-16 18:23] LABS: Hematocrit 31.5 % (37.0-47.0); Hemoglobin 10.1 g/dL (12.0-15.0); Mean Corpuscular HGB Conc 32.1 g/dl (32-36); Mean Corpuscular Hemoglobin 27.7 pg (26-34); Mean Corpuscular Volume 86.5 fl (80-100); Platelet Count Result 272 k/mm3 (150-375); Red Blood Count 3.64 M/mm3 (4.2-5.4); Red Cell Distribution Width 13.6 % (11.5-14.5); White Blood Count 14.3 K/mm3 (4.5-10.0)
[2021-10-16 18:34] LABS: Alanine Aminotransferase 15 U/L (6-35); Albumin Level 3.4 g/dL (3.5-5.1); Alkaline Phosphatase 201 U/L (38-126); Anion Gap 11 mmol/L (8-16); Aspartate Amino Transferase 22 U/L (14-36); Bilirubin,Total 0.5 mg/dL (0.2-1.3); Calcium 8.5 mg/dL (8.4-10.2); Carbon Dioxide 19 mmol/L (22-30); Chloride 106 mmol/L (98-107); Estimated Glomerular Filt Rate > 60; Glucose 106 mg/dL (65-110); Sodium 136 mmol/L (137-145); Uric Acid 4.3 mg/dL (2.5-7.5)
[2021-10-16 19:03] LABS: Blood Urea Nitrogen < 2 mg/dL (7-17)
[2021-10-16] MEDS: BETAMETHASONE SOD PHOS/ACETATE 30 MG/5 ML VIAL 12 MG IM (20:43)
[2021-10-17] VITALS (12 sets, daily range): BP systolic 123–138; BP diastolic 60–82; PULSE 63–130; RESP 14–18; TEMP 36.2–36.8; O2SAT 98–100; BMI 34.5
[2021-10-17] MEDS: oxyCODONE HCL (*CRX) 5 MG TAB IR 10 MG PO ×2 (05:22→23:01)
[2021-10-17] MEDS: ACETAMINOPHEN 500 MG TABLET 1000 MG PO ×2 (05:31→20:06)
--- NOTE | 2021-10-17 07:43 | PM.OBPNVD ---
OB - PN: Subj Subjective Date/time seen: 10/17/21 07:43Headache is stable, no change, no increasing edema, no vision changes OB - PN: Obj Data Labs CBC & Chem 7: 10/16/21 18:15 10/16/21 18:15 Labs: Laboratory Results - last 24 hr 10/16/21 10/16/21 18:15 18:15 WBC 14.3 H RBC 3.64 L Hgb 10.1 L Hct 31.5 L MCV 86.5 MCH 27.7 MCHC 32.1 RDW 13.6 Plt Count 272 MPV 11.0 H Sodium 136 L Potassium 3.0 L Chloride 106 Carbon Dioxide 19 L Anion Gap 11 BUN < 2 L Creatinine 0.50 L Estim Creat Clear Calc Not Reportable Estimated GFR > 60 Glucose 106 Uric Acid 4.3 Calcium 8.5 Total Bilirubin 0.5 AST 22 ALT 15 Alkaline Phosphatase 201 H Total Protein 6.0 L Albumin 3.4 L Imaging Radiologist's impression: Impressions Head CT 10/16/21 08:37 IMPRESSION: Status post posterior fossa decompression surgery (midline lower occipital craniectomy) for Chiari I malformation No significant intracranial abnormality OB - PN A/P Assessment and Plan (1) Chiari malformation: Status: Acute (2) Pre-eclampsia affecting childbirth: Code(s): O14.94 - Unspecified pre-eclampsia, complicating childbirth Status: Acute Plan Comments: 21-year-old 1 at 36 weeks with Chiari malformation and preeclampsia. Continue observation until tomorrow. Deliveries set for 1200. Second dose of steroids was yesterday. Blood pressures are stable. Labs are stable. Headache is stable. Time Spent With Patient Time: Total time spent is greater than 50% in coordination of care (as documented) at patient's floor/unit and/or counseling patient: Exam Const: General: cooperative, healthy appearing, comfortable and no acute distress; No confusion Orientation/consciousness: oriented to person, oriented to place, oriented to time and No confusion HENMT: Head: normal to inspection Ears: external ears normal General nose exam: Normal external nose present Face and sinus: normal facial exam Eyes: General: appearance normal, both eyes and all related structures Neck: Neck: normal visual inspection, trachea midline and supple Resp: Auscultation: clear to auscultation bilaterally, no crackles, no rales, no rhonchi and no wheezes Cardio: Rate: regular rate Rhythm: regular rhythm Heart sounds: no click, no murmurs and no rubs GI: GI Palp: No abdominal tenderness, No Soft to palpation, No Tenderness to palpation present (GI) and No Palpable mass present Auscultation: normal bowel sounds Skin: General skin exam: normal color and no rashes or lesions noted Neuro: General: oriented to person, oriented to place, oriented to time and No confusion Speech: No Abnormal speech present Extrem: General: normal to inspection, no joint enlargement, no clubbing, cyanosis or edema, no pedal edema and no calf tenderness Psych: Appearance: grossly normal Mental Status: mental status grossly normal Speech and movement: Normal speech and movement present
--- NOTE | 2021-10-17 15:27 | WPDANESEPPF ---
Anes - Initial Pre Proc Eval Procedure: Operation Date: 10/18/21 12:00 Proposed Procedures p Section - Efren Dietz MD Operation Date: 10/18/21 12:00 Proposed Procedures p Section - Efren Dietz MD Operation Date: 10/18/21 12:00 Proposed Procedures p Section - Efren Dietz MD Date/Time: 10/17/21 15:27 Surgeon: Efren Dietz MD Pre Op Diagnosis: Hypertension in Patient Data Age: 21 Gender: F Height: 1.6 m Weight: 88.5 kg Last Vital Signs Temp 36.2 C L 10/17/21 05:30 Pulse 93 10/17/21 11:29 Resp 16 10/17/21 05:30 BP 123/79 10/17/21 11:29 O2 Del Method Room Air 10/16/21 21:03 Allergies Allergy/AdvReac Type Severity Reaction Status Date / Time amoxicillin Allergy Severe Hives / Verified 10/15/21 20:02 Red Face Penicillins Allergy Severe Hives / Verified 10/15/21 20:02 Red Face egg Allergy Intermediate SWELLING, Verified 10/15/21 20:02 FEVER Influenza Virus Vaccines Allergy Intermediate Egg Allergy Verified 10/15/21 20:02 sulfamethoxazole Allergy Intermediate THROAT Verified 10/15/21 20:02 SWELLING trimethoprim Allergy Intermediate THROAT Verified 10/15/21 20:02 SWELLING surgical glue Allergy Intermediate Hives Uncoded 10/15/21 20:02 Home Medications Medication Instructions Recorded Confirmed Type Tablet 1 tablet PO DAILY 08/10/21 10/15/21 History metoclopramide HCl 10 mg tablet 10 mg PO Q6H PRN Headache 10/13/21 10/15/21 History (Reglan) Laboratory Tests 10/16/21 10/16/21 18:15 18:15 WBC 14.3 K/mm3 H K/mm3 (4.5-10.0) RBC 3.64 M/mm3 L M/mm3 (4.2-5.4) Hgb 10.1 g/dL L g/dL (12.0-15.0) Hct 31.5 % L % (37.0-47.0) MCV 86.5 fl fl (80-100) MCH 27.7 pg pg (26-34) MCHC 32.1 g/dl g/dl (32-36) RDW 13.6 % % (11.5-14.5) Plt Count 272 k/mm3 k/mm3 (150-375) MPV 11.0 fl H fl (7.4-10.4) Sodium 136 mmol/L L mmol/L (137-145) Potassium 3.0 mmol/L L mmol/L (3.4-5.0) Chloride 106 mmol/L mmol/L (98-107) Carbon Dioxide 19 mmol/L L mmol/L (22-30) Anion Gap 11 mmol/L mmol/L (8-16) BUN < 2 mg/dL L mg/dL (7-17) Creatinine 0.50 mg/dL L mg/dL (0.7-1.0) Estim Creat Clear Calc Not Reportable Estimated GFR > 60 (59 - ) Glucose 106 mg/dL mg/dL (65-110) Uric Acid 4.3 mg/dL mg/dL (2.5-7.5) Calcium 8.5 mg/dL mg/dL (8.4-10.2) Total Bilirubin 0.5 mg/dL mg/dL (0.2-1.3) AST 22 U/L U/L (14-36) ALT 15 U/L U/L (6-35) Alkaline Phosphatase 201 U/L H U/L (38-126) Total Protein 6.0 g/dL L g/dL (6.3-8.2) Albumin 3.4 g/dL L g/dL (3.5-5.1) Patient hx anesthesia problems: none Family hx anesthesia problems: none Results Review: All pre-operative results and documents have been reviewed as part of the pre-operative evaluation. [facility] Past Medical History Medical History (Updated 10/17/21 @ 07:45 by Efren Dietz MD) Anxiety Asthma Chiari malformation Depression Overweight (BMI 25.0-29.9) Surgical History Surgical History (Updated 10/13/19 @ 13:49 by Juanjose Churchill MD) Hx of cholecystectomy Family History Family History Father Hypertension High cholesterol Mother Hypertension Cholelithiases Gilbert syndrome Mitral valve prolapse High cholesterol Migraines Endometriosis Kidney stones Cerebrovascular accident Sibling Migraines Asthma Grandparent Hypertension Ovarian cancer Lung cancer Pancreatic cancer Grandparent Diabetes mellitus Hypotension Renal cancer Gynecomastia, male Grandparent Cerebrovascular accident Social History Social History Smoking status: Never smoker Second hand tobacco smoke exposure: No Substance use: never Spiritual care concerns: No Ane
--- NOTE | 2021-10-17 17:27 | LDADM ---
This patient, Cee Polanco, was admitted to [facility] on 10/16/21 at 16:09. Plans for labor, pain management and were discussed with patient. Patient/family oriented to hospital policies and general routines including ID bracelet, bed and alarms, visiting hours, pain management, procedures, bathroom and other care routines, personal items, smoking policy, room service/diet and guest tray routines, infant security routines, and visiting hours. Patient/Family are encouraged to report perceived risks to care and to ask questions if they do not understand what they are told or what they should do. See [facility]BIX for further documentation.
[2021-10-17 17:58] LABS: Hematocrit 30.1 % (37.0-47.0); Hemoglobin 9.4 g/dL (12.0-15.0); Mean Corpuscular HGB Conc 31.2 g/dl (32-36); Mean Corpuscular Hemoglobin 27.2 pg (26-34); Platelet Count Result 278 k/mm3 (150-375); Red Blood Count 3.46 M/mm3 (4.2-5.4); Red Cell Distribution Width 13.8 % (11.5-14.5); White Blood Count 12.7 K/mm3 (4.5-10.0)
[2021-10-17 18:50] LABS: Alanine Aminotransferase 18 U/L (6-35); Albumin Level 3.2 g/dL (3.5-5.1); Alkaline Phosphatase 180 U/L (38-126); Anion Gap 10 mmol/L (8-16); Aspartate Amino Transferase 23 U/L (14-36); Bilirubin,Total 0.3 mg/dL (0.2-1.3); Calcium 8.9 mg/dL (8.4-10.2); Carbon Dioxide 21 mmol/L (22-30); Chloride 103 mmol/L (98-107); Estimated CRCL calculation 155 ml/min; Estimated Glomerular Filt Rate > 60; Glucose 120 mg/dL (65-110); Potassium 2.8 mmol/L (3.4-5.0); Sodium 134 mmol/L (137-145); Uric Acid 4.8 mg/dL (2.5-7.5)
[2021-10-17 18:52] LABS: Blood Urea Nitrogen < 2 mg/dL (7-17)
[2021-10-17] MEDS: POTASSIUM CHLORIDE INJ 40 MEQ in SODIUM CHLORIDE 0.9% IV 500 ML 130 MEQ IVPB (19:35)
[2021-10-17] MEDS: LACTATED RINGERS 1,000 ML 100 ML IV CONT (19:37)
[2021-10-17] MEDS: CALCIUM CARBONATE (TUMS) 500 MG (200 MG ELEMENTAL) 400 MG PO (23:03)
[2021-10-18] VITALS (96 sets, daily range): BP systolic 107–156; BP diastolic 57–100; PULSE 38–109; RESP 12–27; TEMP 36.1–37.2; O2SAT 94–100
[2021-10-18 01:29] LABS: Potassium 3.2 mmol/L (3.4-5.0)
[2021-10-18] MEDS: POTASSIUM CHLORIDE INJ 40 MEQ in SODIUM CHLORIDE 0.9% IV 500 ML 150 MEQ IVPB (02:12)
[2021-10-18] MEDS: ONDANSETRON INJ 4 MG/2 ML VIAL IV PUSH (02:30)
[2021-10-18 07:36] LABS: Potassium 3.5 mmol/L (3.4-5.0)
[2021-10-18] MEDS: LACTATED RINGERS 1,000 ML 999 ML IV CONT (08:31)
--- NOTE | 2021-10-18 09:48 | WPDHPUPDATE1 ---
History and Physical Update Update Date/Time: 10/18/21 09:48 History and Physical has been reviewed, including an updated exam of the patient. There are NO changes in the patient's condition. Risks, benefits, and alternatives have been discussed and questions answered. Patient agrees to proceed with procedure.
--- NOTE | 2021-10-18 09:49 | PM.OBPNVD ---
OB - PN: Subj Subjective Date/time seen: 10/18/21 09:49 persistent headache but mild. No worsening edema or epigastric pain. She reports good movement. She denies any contractions or vaginal bleeding. 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 OB - PN: Obj Data Labs CBC & Chem 7: 10/17/21 17:50 10/18/21 07:19 Labs: Laboratory Results - last 24 hr 10/17/21 10/17/21 10/17/21 17:50 17:50 17:50 WBC 12.7 H RBC 3.46 L Hgb 9.4 L Hct 30.1 L MCV 87.0 MCH 27.2 MCHC 31.2 L RDW 13.8 Plt Count 278 MPV 11.0 H Sodium 134 L Potassium 2.8 L* Chloride 103 Carbon Dioxide 21 L Anion Gap 10 BUN < 2 L Creatinine 0.50 L Estim Creat Clear Calc 155 Estimated GFR > 60 Glucose 120 H Uric Acid 4.8 Calcium 8.9 Total Bilirubin 0.3 AST 23 ALT 18 Alkaline Phosphatase 180 H Total Protein 6.0 L Albumin 3.2 L Blood Type A Positive Antibody Screen Negative 10/18/21 10/18/21 01:00 07:19 WBC RBC Hgb Hct MCV MCH MCHC RDW Plt Count MPV Sodium Potassium 3.2 L 3.5 Chloride Carbon Dioxide Anion Gap BUN Creatinine Estim Creat Clear Calc Estimated GFR Glucose Uric Acid Calcium Total Bilirubin AST ALT Alkaline Phosphatase Total Protein Albumin Blood Type Antibody Screen OB - PN A/P Assessment and Plan (1) Pre-eclampsia affecting childbirth: Code(s): O14.94 - Unspecified pre-eclampsia, complicating childbirth Status: Acute (2) Chiari malformation: Status: Acute (3) Term : Code(s): Z34.90 - Encounter for supervision of normal , unspecified, unspecified trimester Status: Acute Plan The patient is a 21-year-old 1 at 37 weeks gestation with preeclampsia and Budd-Chiari syndrome. We have planned to do her delivery today. 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 We have agreed to move forward with . She was scheduled for today. She understands the procedure. She understands the risks, benefits, and alternatives. She has completed the informed consent process and is ready to proceed. Time Spent With Patient Time: Total time spent is greater than 50% in coordination of care (as documented) at patient's floor/unit and/or counseling patient: Exam Const: General: cooperative, healthy appearing, comfortable and no acute distress; No confusion Orientation/consciousness: oriented to person, oriented to place, oriented to time and No confusion HENMT: Head: normal to inspection Ears: external ears normal General nose exam: Normal external nose present Face and sinus: normal facial exam Eyes: General: appearance normal, both eyes and all related structures Neck: Neck: normal visual inspection, trachea midline and supple Resp: Auscultation: clear to auscultation bilaterally, no crackles, no rales, no rhonchi and no wheezes Cardio: Rate: regular rate Rhythm: regular rhythm Heart sounds: no click, no murmurs and no rubs GI: GI Palp: No abdominal tenderness, No Soft to palpation, No Tenderness to palpation present (GI) and No Palpable mass present Auscultation: normal bowel sounds Skin: General skin exam: normal color and no rashes or lesions noted Neuro: General: oriented to person, oriented to place, oriented to time and No confusion Speech: No Abnormal speech present Extrem: General: normal to inspection, no joint enlargement, no clubbing, cyanosis or edema, no pedal edema and no calf tenderness Psych: Appearance: grossly normal Mental Status: mental status grossly normal Speech and movement: Normal speech and movement present
[2021-10-18] MEDS: LACTATED RINGERS 1,000 ML 100 ML IV CONT (10:14)
[2021-10-18] MEDS: GENTAMICIN SULFATE INJ 335 MG in DEXTROSE 5% 100 ML 97.51 MG IVPB (10:24)
--- NOTE | 2021-10-18 12:07 | W.PM.PROC2 ---
Procedure Note - Detailed Date of Procedure 10/18/21 Pre-op Diagnosis Hypertension in , Chiari malformation, preeclampsia, 37 week gestation Post-op Diagnosis Same Procedure Performed Low-transverse section Surgeon Efren Dietz MD Anesthesia Spinal Indications Chiari malformation, preeclampsia, term gestation, headache Findings Normal gestational maternal anatomy, average size infant, normal Apgars. Description of Procedure The patient was taken the operating room. She was prepped and draped in dorsal supine position with a leftward tilt. This was done after spinal anesthetic was applied. A low-transverse skin incision was made and carried down till of the fascia with the knife. The fascial incision was made with the knife. The fascial incision was extended laterally with Ramsay scissors. The fascia was tented upward superiorly and inferiorly the rectus muscles were dissected off bluntly. The rectus muscles were the midline. The preperitoneal fat and peritoneum were dissected open bluntly at the superior aspect of the rectus muscles. The peritoneal incision was extended superior and inferior with good position of bladder. The uterine incision was made with a scalpel down to the level of the amniotic cavity. The amniotic cavity was entered bluntly. The infant was delivered. The cord was clamped and cut and the infant was handed off to waiting pediatric staff. Cord bloods were obtained. The placenta was removed manually. The uterus was exteriorized. The uterus was cleared of all clots, debris and membranes. The uterus was closed in 0 Vicryl running lock fashion. An imbricating over a was placed along the incision line as well. The uterus was returned to the abdomen. The gutters were cleared of all clots and debris. The fascia was closed with 0 Vicryl running fashion. The subcutaneous tissue was irrigated pinpoint bleeders were cauterized. The skin was closed with subcuticular absorbable earnest. Mastisol and Steri-Strips were placed. The patient tolerated the procedure well. She has taken recovery room in stable condition. Sponge lap and needle counts were correct x2. Estimated Blood Loss 700 Urine Output 200 Complications No immediate complications Condition Stable Disposition PACU
--- NOTE | 2021-10-18 13:06 | PC.NURSE ---
Dr. Dietz notified of pt having large clots and bleeding with QBL total 1084. Order received for Hemabate x 1 and TXA 1 g.
[2021-10-18] MEDS: CARBOPROST TROMETHAMINE 250 MCG/ML AMPUL IM (13:11)
[2021-10-18] MEDS: TRANEXAMIC ACID 1,000 MG/10 ML AMPUL 1000 MG IV PUSH (13:11)
--- NOTE | 2021-10-18 13:20 | PC.NURSE ---
Dr. Dietz at the bedside to assess pt and place
[2021-10-18] MEDS: fentaNYL CITRATE INJ (*CRX) 100 MCG/2 ML VIAL IV PUSH (13:26)
[2021-10-18] MEDS: OXYTOCIN 30 UNITS/NS 500 ML 30 UNITS/500 ML BAG 999 UNITS IV CONT (13:26)
--- NOTE | 2021-10-18 13:32 | PC.NURSE ---
Verbal order from Dr. Dietz for pt to have pitocin at 999ml/hr x 1 bag and continue after that at 125ml/hr
--- NOTE | 2021-10-18 13:36 | PM.OBPNVD ---
OB - PN: Subj Subjective Date/time seen: 10/18/21 13:36Status post hemorrhage. Patient felt some dizziness after 100 mcg of fentanyl but has had significant blood loss , over 1999. Hemabate was given intraoperatively, the Pitocin was given intraoperatively, the 2nd dose of Hemabate was given and fresh-frozen plasma was given shortly after some acceleration of her bleeding in the recovery room. I arrived at the 2nd dose of Hemabate and and prepared place about group balloon. Bakri balloon was placed. About 120 cc were placed inside the balkri balloon. no bleeding after placement of the balkri balloon/minimal bleeding. Patient denied shortness of breath or loss of consciousness. She did have some nausea. uterus was firm and at the fundus. Minimal drainage from the balkri port. To observe. To continue running Pitocin at high doses. OB - PN: Obj Data Labs CBC & Chem 7: 10/17/21 17:50 10/18/21 07:19 Labs: Laboratory Results - last 24 hr 10/17/21 10/17/21 10/17/21 17:50 17:50 17:50 WBC 12.7 H RBC 3.46 L Hgb 9.4 L Hct 30.1 L MCV 87.0 MCH 27.2 MCHC 31.2 L RDW 13.8 Plt Count 278 MPV 11.0 H Sodium 134 L Potassium 2.8 L* Chloride 103 Carbon Dioxide 21 L Anion Gap 10 BUN < 2 L Creatinine 0.50 L Estim Creat Clear Calc 155 Estimated GFR > 60 Glucose 120 H Uric Acid 4.8 Calcium 8.9 Total Bilirubin 0.3 AST 23 ALT 18 Alkaline Phosphatase 180 H Total Protein 6.0 L Albumin 3.2 L Blood Type A Positive Antibody Screen Negative Crossmatch See Detail 10/18/21 10/18/21 01:00 07:19 WBC RBC Hgb Hct MCV MCH MCHC RDW Plt Count MPV Sodium Potassium 3.2 L 3.5 Chloride Carbon Dioxide Anion Gap BUN Creatinine Estim Creat Clear Calc Estimated GFR Glucose Uric Acid Calcium Total Bilirubin AST ALT Alkaline Phosphatase Total Protein Albumin Blood Type Antibody Screen Crossmatch OB - PN A/P Assessment and Plan (1) hemorrhage: Code(s): O72.1 - Other immediate hemorrhage Status: Acute Plan 10/18/21 13:36Status post hemorrhage. Patient felt some dizziness after 100 mcg of fentanyl but has had significant blood loss , over 1999. Hemabate was given intraoperatively, the Pitocin was given intraoperatively, the 2nd dose of Hemabate was given and fresh-frozen plasma was given shortly after some acceleration of her bleeding in the recovery room. I arrived at the 2nd dose of Hemabate and and prepared place about group balloon. Bakri balloon was placed. About 120 cc were placed inside the balkri balloon. no bleeding after placement of the balkri balloon/minimal bleeding. Patient denied shortness of breath or loss of consciousness. She did have some nausea. uterus was firm and at the fundus. Minimal drainage from the balkri port. To observe. To continue running Pitocin at high doses. vital signs have been stable throughout this. She never showed signs of hypovolemic shock. Time Spent With Patient Time: Total time spent is greater than 50% in coordination of care (as documented) at patient's floor/unit and/or counseling patient:
[2021-10-18 13:39] LABS: Basophils Percent Auto 0.2 % (0.2-1.2); Eosinophils Percent Auto 0.1 % (0-4.4); Hematocrit 26.7 % (37.0-47.0); Hemoglobin 8.2 g/dL (12.0-15.0); Immature Granulocyte Absolute 0.12 K/mm3 (0.00-0.031); Immature Granulocyte Percent A 0.9 % (0-0.5); Lymphocytes Absolute Auto 1.94 K/mm3 (0.9-3.2); Lymphocytes Percent Auto 14.4 % (18.3-44.2); Mean Corpuscular HGB Conc 30.7 g/dl (32-36); Mean Corpuscular Hemoglobin 27.2 pg (26-34); Mean Corpuscular Volume 88.7 fl (80-100); Mean Platelet Volume 11.1 fl (7.4-10.4); Monocytes Absolute Auto 0.9 K/mm3 (0.1-0.6); Monocytes Percent Auto 6.3 % (2.6-8.5); Neutrophils Absolute Auto 10.5 K/mm3 (1.3-6.7); Neutrophils Percent Auto 78.1 % (45.5-73.1); Nucleated Red Blood Cells Absolute Auto 0.1 K/mm3 (0.0-0.012); Nucleated Red Blood Cells Perc 0.4 % (0.0-0.2); Platelet Count Result 280 k/mm3 (150-375); Red Blood Count 3.01 M/mm3 (4.2-5.4); Red Cell Distribution Width 14.2 % (11.5-14.5); White Blood Count 13.5 K/mm3 (4.5-10.0)
[2021-10-18] MEDS: OXYTOCIN 30 UNITS/NS 500 ML 30 UNITS/500 ML BAG 125 UNITS IVPB ×2 (14:00→22:37)
[2021-10-18 14:02] LABS: INR 1.1; Prothrombin Time 13.6 Seconds (11.1-14.7)
[2021-10-18 14:03] LABS: Fibrinogen 363 mg/dl (215-510); Partial Thromboplastin Time 22.3 SECONDS (22.3-36.8)
[2021-10-18 14:17] LABS: D Dimer 5.43 ug/mL (<0.48)
[2021-10-18] MEDS: LORATADINE 10 MG TABLET PO (14:37)
[2021-10-18 14:43] LABS: HIV 1/2 Ab P24 Ag Result Negative (Negative); Hepatitis B Surface Anti Res Negative; Hepatitis C Virus Antibody Negative (Negative)
[2021-10-18] MEDS: MORPHINE SULFATE INJ (*CRX) 10 MG/ML AMP 2 MG IV PUSH (14:51)
[2021-10-18] MEDS: KETOROLAC 30 MG/ML VIAL (*BKC) IV PUSH (16:01)
[2021-10-18] MEDS: DOCUSATE SODIUM 100 MG CAPSULE PO (16:05)
[2021-10-18] MEDS: HYDROcodone/acetaminophen (*CRX) 10-325 MG TABLET 1 TAB PO ×2 (16:05→18:48)
[2021-10-18] MEDS: POLYSACCHARIDE IRON COMPLEX 150 MG CAPSULE PO (16:05)
--- NOTE | 2021-10-18 16:20 | OBPPTRN ---
1540-Patient transferred to post room #290 via stretcher. Support person present. Oriented to unit, room, information board, rooming in, admission packet and security measures. Patient verbalizes understanding.
[2021-10-18 16:23] LABS: Rapid Plasma Reagin Non-Reactive (NonReactive)
[2021-10-18] MEDS: IBUPROFEN 600 MG TABLET PO (18:48)
[2021-10-18] MEDS: HYDROcodone/acetaminophen (*CRX) 5-325 MG TABLET 1 TAB PO (22:48)
[2021-10-19] VITALS (7 sets, daily range): BP systolic 125–140; BP diastolic 82–99; PULSE 66–94; RESP 16–18; TEMP 36.3–37; O2SAT 98–99
[2021-10-19] MEDS: OXYTOCIN 30 UNITS/NS 500 ML 30 UNITS/500 ML BAG 125 UNITS IVPB ×2 (02:39→07:16)
[2021-10-19] MEDS: HYDROcodone/acetaminophen (*CRX) 10-325 MG TABLET 1 TAB PO ×5 (02:49→22:57)
[2021-10-19] MEDS: IBUPROFEN 600 MG TABLET PO ×3 (02:49→16:28)
[2021-10-19 05:38] LABS: Basophils Percent Auto 0.1 % (0.2-1.2); Eosinophils Percent Auto 0.2 % (0-4.4); Hematocrit 26.1 % (37.0-47.0); Hemoglobin 8.1 g/dL (12.0-15.0); Immature Granulocyte Percent A 0.7 % (0-0.5); Lymphocytes Absolute Auto 2.51 K/mm3 (0.9-3.2); Lymphocytes Percent Auto 16.6 % (18.3-44.2); Mean Corpuscular Hemoglobin 27.6 pg (26-34); Mean Corpuscular Volume 88.8 fl (80-100); Mean Platelet Volume 11.5 fl (7.4-10.4); Monocytes Absolute Auto 1.7 K/mm3 (0.1-0.6); Monocytes Percent Auto 11.2 % (2.6-8.5); Neutrophils Absolute Auto 10.8 K/mm3 (1.3-6.7); Neutrophils Percent Auto 71.2 % (45.5-73.1); Nucleated Red Blood Cells Perc 0.2 % (0.0-0.2); Platelet Count Result 213 k/mm3 (150-375); Red Blood Count 2.94 M/mm3 (4.2-5.4); White Blood Count 15.1 K/mm3 (4.5-10.0)
--- NOTE | 2021-10-19 08:21 | PM.OBPNVD ---
OB - PN: Subj Subjective Date/time seen: 10/19/21 08:21 Patient comments: no complaints, pain well controlled, tolerating diet and flatus present OB - PN: Obj Data Labs CBC & Chem 7: 10/19/21 05:03 10/18/21 07:19 Labs: Laboratory Results - last 24 hr 10/17/21 10/17/21 10/18/21 17:50 17:50 13:33 WBC RBC Hgb Hct MCV MCH MCHC RDW Plt Count MPV Immature Gran % (Auto) Neut % (Auto) Lymph % (Auto) [place] % (Auto) Eos % (Auto) Baso % (Auto) Lymph # (Auto) [place] # (Auto) Eos # (Auto) Baso # (Auto) Abs Immat Gran (auto) Absolute Neuts (auto) Absolute Nucleated RBC Nucleated RBC % PT INR APTT Fibrinogen D-Dimer RPR Non-reactive Hep Bs Antibody Negative Hepatitis C Ab Screen Negative HIV 1&2 Ab/P24 Ag 4thGn Negative Blood Type A Positive Antibody Screen Negative Crossmatch See Detail 10/18/21 10/18/21 10/19/21 13:33 13:44 05:03 WBC 13.5 H 15.1 H RBC 3.01 L 2.94 L Hgb 8.2 L 8.1 L Hct 26.7 L 26.1 L MCV 88.7 88.8 MCH 27.2 27.6 MCHC 30.7 L 31.0 L RDW 14.2 14.0 Plt Count 280 213 MPV 11.1 H 11.5 H Immature Gran % (Auto) 0.9 H 0.7 H Neut % (Auto) 78.1 H 71.2 Lymph % (Auto) 14.[address] [place] % (Auto) 6.3 11.2 H Eos % (Auto) 0.1 0.2 Baso % (Auto) 0.2 0.1 L Lymph # (Auto) 1.[address] [place] # (Auto) 0.9 H 1.7 H Eos # (Auto) 0.0 0.0 Baso # (Auto) 0.0 0.0 Abs Immat Gran (auto) 0.12 H 0.10 H Absolute Neuts (auto) 10.5 H 10.8 H Absolute Nucleated RBC 0.1 H 0.0 Nucleated RBC % 0.4 H 0.2 PT 13.6 INR 1.1 APTT 22.3 Fibrinogen 363 D-Dimer 5.43 H RPR Hep Bs Antibody Hepatitis C Ab Screen HIV 1&2 Ab/P24 Ag 4thGn Blood Type Antibody Screen Crossmatch OB - PN A/P Assessment and Plan (1) Chiari malformation: Status: Acute (2) Pre-eclampsia affecting childbirth: Code(s): O14.94 - Unspecified pre-eclampsia, complicating childbirth Status: Acute (3) hemorrhage: Code(s): O72.1 - Other immediate hemorrhage Status: Acute Plan day: 1 Comments: Post Op LTCS, preeclampsia, Chiari malformation, hemorrhage-stable, no headache, headache resolved, some lightheadedness with standing. Anemia status post hemorrhage, consider another unit if anemia symptoms persist on door severe. Blood pressures are stable. Continue obs for 2 days. Time Spent With Patient Time: Total time spent is greater than 50% in coordination of care (as documented) at patient's floor/unit and/or counseling patient: Exam Const: General: cooperative, healthy appearing, comfortable and no acute distress Resp: Auscultation: no crackles, no rales, no rhonchi and no wheezes Cardio: Rhythm: regular rhythm Heart sounds: no click and no murmurs GI: Inspection: non-distended Auscultation: normal bowel sounds Extrem: General: normal to inspection, no pedal edema and no calf tenderness
[2021-10-19] MEDS: MULTIVIT/MIN/PREN/FOL AC/IRON TABLET 1 TAB PO (09:58)
[2021-10-19] MEDS: DOCUSATE SODIUM 100 MG CAPSULE PO ×2 (09:58→16:27)
[2021-10-19] MEDS: POLYSACCHARIDE IRON COMPLEX 150 MG CAPSULE PO ×2 (09:58→16:27)
--- NOTE | 2021-10-19 10:20 | PC.NURSE ---
0815-Dr. Dietz present at bedside to remove Manuel Balloon; pt tolerated well. 0945-pt up to bathroom with assistance; not lightheaded/dizzy; pt voided well; Dr. Dietz notified of pt expressing large clot; order given to stop pitocin.
--- NOTE | 2021-10-19 12:19 | PC.NURSE ---
[id number] Introductions were made, then consulted with patient to assess needs related to . Mother led the conversation with her?plans to feed?her infant and the?experience so far. is being held by a visitor. Father of baby states infant is to feed in 15 minutes. Mother states she wants to try to latch infant to the breast. Resources provided for inpatient and outpatient services using a resource guide and mom/baby guide. Mother voiced understanding of information and requested assistance with latching her infant. There was an attempt to latch infant briefly to the right breast but mom states her nipple doesn't come out on that side. Pumping was recommended for the right breast. Mother works well with her with encouragement. Education given to hand massage, express, and nipple stretch for assisting to latch infant. Reviewed working with infant, breast, nipples and how to protect the nipples with an optimal deep latch, good positioning, and good hand washing. Encouraged understanding the benefits of skin to skin, responding to feeding cues, frequencies of feeding 8-12 times in 24 hours (approximately 2-3 hours), duration of feedings, milk production, intake/output feeding sheet and signs of adequate intake encouraging swallowing at the breast. Reviewed positioning and alignment, supporting breast, off-centered (asymmetrical latch) and leading with the chin with big open wide gape. Infant latched optimally to the left breast in cross cradle position. Education given to mother of how to visualize suck/swallow ratios and drinking at the breast. Infant was able to maintain latch without discomfort to mother. Nipple care reviewed with optimal latch and good positioning and to have clean hands when touching the nipple/breast as needed. Resources used to facilitate learning were used from the tool/mom and baby guide. Parents asked appropriate questions and reviewed how to watch for signs of good latch, swallowing, rocking motion, and output. Discussed what assessments are done with I&O, weight, jaundice, infant's blood sugar, and the possible need to continue to supplement their infant. Parents voiced understanding of the education shared, calling for assistance if the infant does not latch or if there is discomfort with . Discussed with parents concerns regarding her QBL >2000, late infant, stimulation for milk production, and after breast assessment the grade 3 inverted nipple on the right breast. Mother desires to pump her breast. Mother voiced understanding to call for assistance with latch if it is painful, if it has been 2 1/2-3 hours since the start of the last and isn't waking up to latch. resources provided. Reported to primary RN that mother needs to initiate pumping and education given to pump 8 times in 24 hours 1-2 times at night if infant is bottle fed, doesn't latch or if there is pain with the latch and parents voiced understanding information and how to record pumping on the feeding sheet.
--- NOTE | 2021-10-19 14:06 | WPDANLDPN2 ---
Anes-Prog Note L&D Date/Time: 10/19/21 14:06 Comfortable throughout: section Neuraxial method: spinal Epidural/Spinal procedure site: clean & non-tender Neuro status: Neuro function grossly intact. Cardiovascular status: normal Respiratory status: normal Airway patency: baseline Mental status: baseline Post-Op hydration status: normal Vital Signs: Last Vital Signs Temp 36.3 C L 10/19/21 12:44 Pulse 88 10/19/21 12:44 Resp 16 10/19/21 12:44 BP 129/84 10/19/21 12:44 Pulse Ox 98 10/19/21 12:44 O2 Del Method Room Air 10/19/21 08:00 Pain score (VAS): 03/27 I/O: Intake & Output 10/18/21 10/19/21 10/19/21 23:59 07:59 15:59 Intake Total 1698 1600 200 Output Total 250 650 569 Balance 1448 950 -369 Post-procedural complaints: none Patient feedback: Patient satisfied with anesthetic care.
--- NOTE | 2021-10-19 14:07 | WPDANLDNPN2 ---
Anes-Prog Note L&D-Neuraxial Date/Time: 10/19/21 14:07 Neuraxial medications: intrathecal PF morphine Opiod-related complaints: none Patient feedback: Patient satisfied with post-operative pain management.
[2021-10-19] MEDS: HYDROcodone/acetaminophen (*CRX) 5-325 MG TABLET 1 TAB PO (19:50)
[2021-10-20] MEDS: IBUPROFEN 600 MG TABLET PO ×3 (01:15→18:07)
[2021-10-20] MEDS: HYDROcodone/acetaminophen (*CRX) 5-325 MG TABLET 1 TAB PO ×3 (03:38→18:07)
[2021-10-20 03:53] VITALS: BP 123/80; PULSE 86; RESP 16; TEMP 36.7; O2SAT 97
--- NOTE | 2021-10-20 07:59 | PM.OBPNVD ---
OB - PN: Subj Subjective Date/time seen: 10/20/21 07:59 s/p delivery day 2 OB - PN: Obj Data Labs CBC & Chem 7: 10/19/21 05:03 10/18/21 07:19 OB - PN A/P Plan day: 2 Plan: routine care Time Spent With Patient Time: Total time spent is greater than 50% in coordination of care (as documented) at patient's floor/unit and/or counseling patient: Review of Systems Review of Systems: All systems reviewed & are unremarkable except as noted in HPI and below Exam Narrative: incision cdi
--- NOTE | 2021-10-20 08:10 | PC.NURSE ---
PT introductions made and plan of care discussed per post op c section, pain management, breast feeding, pumping, bottle feeding, daily care activities. PT and fob both recipients of such instructions and no barriers to learning identified at this time. PT received instructions per one to one discussion, mom baby care guide and demonstrations this shift. PT verbalized understanding of such care.
[2021-10-20 08:20] VITALS: BP 134/86; PULSE 83; RESP 16; TEMP 36.3; O2SAT 98
[2021-10-20] MEDS: SIMETHICONE 80 MG TAB.CHEW PO ×2 (10:49→14:16)
[2021-10-20] MEDS: DOCUSATE SODIUM 100 MG CAPSULE PO ×2 (10:50→18:07)
[2021-10-20] MEDS: MULTIVIT/MIN/PREN/FOL AC/IRON TABLET 1 TAB PO (10:50)
[2021-10-20] MEDS: POLYSACCHARIDE IRON COMPLEX 150 MG CAPSULE PO ×2 (10:50→18:06)
[2021-10-20 12:23] VITALS: BP 142/90; PULSE 90; RESP 16; TEMP 36.9; O2SAT 98
[2021-10-20] MEDS: HYDROcodone/acetaminophen (*CRX) 10-325 MG TABLET 1 TAB PO ×2 (14:16→21:32)
[2021-10-20 17:30] VITALS: BP 134/84; PULSE 92; RESP 18; TEMP 36.6; O2SAT 98
[2021-10-21] MEDS: HYDROcodone/acetaminophen (*CRX) 10-325 MG TABLET 1 TAB PO ×3 (01:11→11:16)
[2021-10-21] MEDS: IBUPROFEN 600 MG TABLET PO ×2 (01:12→11:19)
[2021-10-21 01:16] VITALS: BP 129/81; PULSE 78; RESP 18; TEMP 36.6; O2SAT 97
[2021-10-21 05:15] VITALS: BP 141/97; PULSE 74; RESP 18; TEMP 36.6; O2SAT 97
[2021-10-21 08:00] VITALS: PULSE 81; RESP 18; O2SAT 100
--- NOTE | 2021-10-21 08:46 | PM.OBPNVD ---
OB - PN: Subj Subjective Date/time seen: 10/21/21 08:46 s/p delivery day 3 OB - PN: Obj Data Labs CBC & Chem 7: 10/19/21 05:03 10/18/21 07:19 OB - PN A/P Plan day: 3 Plan: routine care and discharge home Time Spent With Patient Time: Total time spent is greater than 50% in coordination of care (as documented) at patient's floor/unit and/or counseling patient: Review of Systems Review of Systems: All systems reviewed & are unremarkable except as noted in HPI and below Exam Narrative: incision cdi Const: General: cooperative, healthy appearing and comfortable
--- NOTE | 2021-10-21 08:49 | PM.OBDSVD ---
DS: Admitting Diagnosis Discharge Date 10/21/21 Admitting Diagnosis section OB - DS: Summary OB Procedures : None OB Procedures Intrapartum: OB Procedures: : None Peripartum Data Procedures: Procedures Operation Date: 10/18/21 12:00 Actual Procedure Side Surgeon p Section Efren Dietz MD Operation Date: 10/18/21 12:00 <No data on this case meets the specified criteria> Operation Date: 10/18/21 12:00 <No data on this case meets the specified criteria> Time Spent with Patient Time attestation: Total time spent providing and/or coordinating discharge services: DS: Data Data Completed and Pending Pending studies at discharge: Pending at discharge 10/18/21 15:04 Surgical [PTH] Routine Discharge Plan Discharge Attending physician on discharge: Efren Dietz Discharging Clinician: Soledad Crockett Patient Disposition: Home, Self-Care Activity: pelvic rest Diet: regular Patient Instructions: Antibiotic Form Stand Alone Forms: General Discharge Information Follow-up/Referrals: Efren Dietz MD [Physician] - 1 Week Discharge Medications: New hydrocodone-acetaminophen 5-325 mg Tablet 1 tablet PO Q3H PRN (Reason: Moderate Pain (4-6)) Qty: 20 0RF ibuprofen 600 mg Tablet 600 mg PO Q6H PRN (Reason: Cramping) Qty: 30 0RF Continued Tablet 1 tablet PO DAILY metoclopramide HCl [Reglan] 10 mg Tablet 10 mg PO Q6H PRN (Reason: Headache) Date of admission: 10/16/21 16:09 Primary Care Provider: Cathie,Ivan De La Rosa Admitting Provider: Efren Dietz Attending physician on admission: Efren Dietz Condition: Stable
[2021-10-21 11:00] VITALS: BP 146/92; PULSE 81; RESP 18; TEMP 36; O2SAT 100
[2021-10-21] MEDS: POLYSACCHARIDE IRON COMPLEX 150 MG CAPSULE PO (11:15)
[2021-10-21] MEDS: DOCUSATE SODIUM 100 MG CAPSULE PO (11:15)
[2021-10-21] MEDS: MULTIVIT/MIN/PREN/FOL AC/IRON TABLET 1 TAB PO (11:16)
[2021-10-23 11:18] VITALS: BP 149/91; PULSE 93; RESP 16; TEMP 36.8
== END 2021-10-21 13:50 | disposition home or self-care (01) | DRG 787 ==
LOC: ANHOBOP 21:29 → ANHOBPP 21:29 → ANHLDR 10-18 13:37 → ANHOB2 10-18 15:59
PROVIDERS: Obstetrics & Gynecology; Admitting Provider Obstetrics & Gynecology; PCP Family Medicine; Visit Provider Obstetrics & Gynecology
PROC: 10D00Z1 Extraction of Products of Conception, Low, Open Approach (ICD-10-PCS; CPT 59514; principal; 2021-10-18 12:00)
DX: O14.94 Unspecified pre-eclampsia, complicating childbirth (principal); O99.354 Diseases of the nervous system complicating childbirth; D62 Acute posthemorrhagic anemia; O72.1 Other immediate postpartum hemorrhage; Z37.0 Single live birth; Z3A.37 37 weeks gestation of pregnancy; O13.4 Gestational [pregnancy-induced] hypertension without significant proteinuria, complicating childbirth; O69.81X0 Labor and delivery complicated by cord around neck, without compression, not applicable or unspecified; O99.344 Other mental disorders complicating childbirth; F41.9 Anxiety disorder, unspecified; F32.A Depression, unspecified; O90.81 Anemia of the puerperium; Z87.728 Personal history of other specified (corrected) congenital malformations of nervous system and sense organs
CPT/HCPCS: 36415; 36430; 59025; 70450; 80053; 81001; 82570; 84132; 84156; 84550; 85025; 85027; 85380; 85384; 85610; 85730; 86592; 86703; 86706; 86803; 86850; 86900; 86901; 86920; 88307; 96372; A9270; G0432; J0702; J1200; J1580; J1885; J2270; J2274; J2370; J2405; J2590; J2704; J3010; J3480; J7040; J7120; P9016; P9017

== ENCOUNTER 2022-03-28 00:30 | Day surgery (SDC) | payer OTHER, BC, SELFPAY ==
[2022-03-22 08:31] VITALS: BMI 31.0
--- NOTE | 2022-03-22 08:38 | PC.NURSE ---
Report to the Outpatient Waiting Room, entrance under the green pavilion located off [facility], at time _0830_ on date _03/28/22_. Planned Procedure Time: _1030_. Time changes happen often and if your time is changed the preop area will call you the afternoon before. - You and your visitor will be asked to self-screen and do not enter if you have any COVID symptoms. - Only one visitor is requested with a max of two and NO children visitors are allowed at this time. - The patient visitor may be requested to leave or wait in car when not with patient due to distancing restrictions. - A mask is optional within the hospital. Patients may have clear liquids (water, carbonated beverages, clear teas, apple juice) until 3 hours prior to surgery with a maximum of 20 ounces. - No food from midnight until time of surgery - Infants may have breast milk until 4 hours before surgery, formula 6 hours prior to surgery. - Children will be allowed to drink immediately following surgery. If applicable, please bring a bottle or sippy cup to assist with drinking. Juice, water, soda, and popsicles are readily available. For infants on formula, please bring formula the day of surgery. Pacifiers are allowed. Take the following medications with a SIP of water the morning of surgery: ____TYLENOL, INHALER NEEDED Medications to discontinue per physician NONE Date to take last dose Please no make-up, nail kyrgyz, hairspray, perfume, deodorant, or body powder the day of surgery. No jewelry (including any body piercings) or valuables the day of surgery, leave them at home. Please take a shower or bath the night before, or the morning of, surgery with an antibacterial soap. Wear comfortable, loose fitting clothing. Children are encouraged to wear pajamas. - Jewelry must be removed prior to entering the operating room. Rings and piercings that are not removed may be cut off. - The hospital will not accept responsibility for valuables. - Please leave all valuables, including medications, at home the day of surgery. If you are going home after surgery, a licensed dumpcart driver must drive you home. - NO public transportation without another adult if you receive anesthesia. - We recommend that an adult stay with you for 24 hours following discharge. - We also recommend that you do not drive, make important decision, drink alcoholic beverages, or take any drugs that were not prescribed by your health care provider for at least 24 hours after your discharge time. For Pediatric surgeries, we recommend two adults accompany the child home. Follow any additional instructions given to you from your surgeon. If you or anyone in your household have experienced Covid symptoms in the past week, please notify your surgeon or the nurse liaison at the phone number below for possible testing. Telephone instructions given to __PATIENT__and asked if any additional questions and then verbalized understanding. Patient advised to call surgeon office or pre surgery nurse liaison [phone] if any additional questions.
[2022-03-28] VITALS (9 sets, daily range): BP systolic 109–126; BP diastolic 62–82; PULSE 63–94; RESP 10–22; TEMP 36.3; O2SAT 98–100
[2022-03-28] MEDS: ACETAMINOPHEN 500 MG TABLET 1000 MG PO (09:02)
[2022-03-28] MEDS: LACTATED RINGERS 1,000 ML 30 ML IV CONT ×2 (09:24→13:47)
[2022-03-28] MEDS: KETOROLAC 15 MG/ML VIAL (*BKC) IV PUSH (09:25)
--- NOTE | 2022-03-28 10:26 | WPDANESEPPF ---
Anes - Initial Pre Proc Eval Procedure: Operation Date: 03/28/22 10:30 Proposed Procedures p Laparoscopic Left Ovarian Cystectomy - Efren Dietz MD Date/Time: 03/28/22 10:26 Surgeon: Efren Dietz MD Pre Op Diagnosis: Left Ovarian Cyst Patient Data Age: 21 Gender: F Height: 1.63 m Weight: 81 kg Last Vital Signs Temp 36.3 C L 03/28/22 09:07 Pulse 83 03/28/22 09:07 Resp 16 03/28/22 09:07 BP 126/82 03/28/22 09:07 Pulse Ox 100 03/28/22 09:07 O2 Del Method Room Air 03/28/22 09:07 Allergies Allergy/AdvReac Type Severity Reaction Status Date / Time amoxicillin Allergy Severe Hives / Verified 03/28/22 08:59 Red Face Penicillins Allergy Severe Hives / Verified 03/28/22 08:59 Red Face Influenza Virus Vaccines Allergy Intermediate Egg Allergy Verified 03/28/22 08:59 sulfamethoxazole Allergy Intermediate THROAT Verified 03/28/22 08:59 SWELLING trimethoprim Allergy Intermediate THROAT Verified 03/28/22 08:59 SWELLING egg AdvReac Intermediate SWELLING, Verified 03/28/22 08:59 FEVER surgical glue Allergy Intermediate Hives Uncoded 03/28/22 08:59 Home Medications Medication Instructions Recorded Confirmed Type acetaminophen 325 mg capsule 325 mg PO PRN PRN Pain 03/22/22 03/22/22 History (Tylenol) albuterol sulfate 90 mcg/actuation 2 puff inhalation QID PRN 03/22/22 03/22/22 History aerosol inhaler Shortness Of Breath Patient hx anesthesia problems: post op nausea/vomiting Family hx anesthesia problems: none Results Review: All pre-operative results and documents have been reviewed as part of the pre-operative evaluation. [facility] Past Medical History Medical History (System 03/21/22 @ 14:15 by Calista Edwards) Anxiety Asthma Chiari malformation Depression Overweight (BMI 25.0-29.9) Surgical History Surgical History (Updated 03/28/22 @ 10:27 by Anthony Quintero MD) H/O craniotomy H/O laparoscopy Hx of cholecystectomy Family History Family History (System 03/21/22 @ 14:15 by Calista Edwards) Father Hypertension High cholesterol Mother Hypertension Cholelithiases Gilbert syndrome Mitral valve prolapse High cholesterol Migraines Endometriosis Kidney stones Cerebrovascular accident Sibling Migraines Asthma Grandparent Hypertension Ovarian cancer Lung cancer Pancreatic cancer Grandparent Diabetes mellitus Hypotension Renal cancer Gynecomastia, male Grandparent Cerebrovascular accident Social History Social History Smoking status: Never smoker Second hand tobacco smoke exposure: No Alcohol intake: current Alcohol use details: 1 PER MONTH Substance use: never Living arrangements: with family Spiritual care concerns: No Anes - Eval Final PreProcedure Day of Procedure 03/28/22 10:26 Patient weight: obese Heart: regular rate and rhythm Lungs: clear to auscultation Airway: Mallampati scale class II Neurological: alert and oriented Last oral intake: >/= 8 hours ASA classification: III Emergent: no Anesthetic plan: proceed Anesthesia type and monitoring: general ETT Results Review: All pre-operative results and documents have been reviewed as part of the pre-operative evaluation. Informed Consent: The patient's anesthetic plan and its attendant risks and benefits were discussed with the patient/family/POA. Questions were solicited and answers provided to the satisfaction of the patient/family/POA.
[2022-03-28] MEDS: SCOPOLAMINE 1.5 MG PATCH TRANSDERM (10:45)
--- NOTE | 2022-03-28 11:39 | PM.IMHP ---
H&P: HPI History of Present Illness Date/Time: 03/28/22 11:39 Chief Complaint: Pelvic pain Narrative: this patient is a 21-year-old female with pelvic pain or large left ovarian cyst. We agreed to perform Left laparoscopic ovarian cystectomy. patient understands there is risk. She understands injuries can occur that result in hospitalization, more surgery and severe illness. She understands there is risk of infection and hemorrhage She denies any chest pain or shortness of breath. She denies any nausea, vomiting, fever, chills.. Review of Systems Review of Systems: All systems reviewed & are unremarkable except as noted in HPI and below Constitutional: Constitutional: Denies chills, Denies fatigue, Denies fever(s) and Denies weakness Eyes: Eyes: Denies blurry vision, Denies change in vision, Denies loss of peripheral vision, Denies loss of vision, Denies other visual disturbances and Denies eye pain ENT: Denies vertigo, Denies dizziness, Denies hearing loss, Denies mouth pain, Denies nasal obstruction, Denies neck mass and Denies neck pain Cardiovascular: Cardiovascular: Denies chest pain, Denies diaphoresis, Denies syncope, Denies leg edema and Denies dyspnea Respiratory: Respiratory: Denies chest congestion, Denies cough, Denies hemoptysis, Denies dyspnea and Denies wheezing Gastrointestinal: Gastrointestinal: Denies abdominal pain, Denies constipation, Denies diarrhea, Denies nausea and Denies vomiting Genitourinary: Genitourinary: Denies hematuria, Denies change in libido, Denies nocturia, Denies genital lesions, Denies flank pain and Denies urinary urgency Musculoskeletal: Musculoskeletal: Denies abnormal gait, Denies back pain, Denies myalgias, Denies arthralgias, Denies joint swelling, Denies muscle weakness and Denies neck pain Integumentary/Breasts: Skin/Breast: Denies swelling, Denies breast pain, Denies breast mass, Denies dry skin, Denies nipple discharge, Denies unusual bruising and Denies jaundice Neurologic: Denies Neuro-related abnormal movements, Denies Abnormal speech present, Denies abnormal gait, Denies behavioral changes, Denies confusion, Denies vertigo, Denies dizziness, Denies syncope, Denies loss of vision, Denies memory loss, Denies convulsions and Denies weakness Psychiatric: Psychiatric: Denies abnormal sleep pattern, Denies behavioral changes, Denies change in libido, Denies confusion, Denies depression, Denies anhedonia and Denies memory loss Endocrine: Endocrine: Reports no additional endocrine complaints, Denies change in libido and Denies fatigue Hematologic/Lymphatic: Hematologic/Lymphatic: Reports no additional hematologic/lymphatic complaints Allergic/Immunologic: Allergic/Immunologic: Reports no additional allergic/immunologic complaints and Denies wheezing PMFSH Past Medical History Medical History (Updated 03/28/22 @ 11:42 by Efren Dietz MD) Anxiety Asthma Chiari malformation Depression Overweight (BMI 25.0-29.9) Surgical History Surgical History (Updated 03/28/22 @ 10:27 by Anthony Quintero MD) H/O craniotomy H/O laparoscopy Hx of cholecystectomy Family History Family History (System 03/21/22 @ 14:15 by Calista Edwards) Father Hypertension High cholesterol Mother Hypertension Cholelithiases Gilbert syndrome Mitral valve prolapse High cholesterol Migraines Endometriosis Kidney stones Cerebrovascular accident Sibling Migraines Asthma Grandparent Hypertension Ovarian cancer Lung cancer Pancreatic cancer Grandparent Diabetes mellitus Hypotension Renal cancer Gynecomastia, male Grandparent Cerebrovascular accident Social History Social History Smoking status: Never smoker Second hand tobacco smoke exposure: No Alcohol intake: current Alcohol use details: 1 PER MONTH Substance use: never Living arrangements: with family Spiritual care concerns: No Meds H
--- NOTE | 2022-03-28 11:43 | WPDHPUPDATE1 ---
History and Physical Update Update Date/Time: 03/28/22 11:43 History and Physical has been reviewed, including an updated exam of the patient. There are NO changes in the patient's condition. Risks, benefits, and alternatives have been discussed and questions answered. Patient agrees to proceed with procedure.
--- NOTE | 2022-03-28 13:03 | W.PM.PROC2 ---
Procedure Note - Detailed Date of Procedure 03/28/22 Pre-op Diagnosis Left Ovarian Cyst Post-op Diagnosis Same Procedure Performed Laparoscopic ovarian cystectomy Surgeon Efren Dietz MD Anesthesia General Indications Pelvic pain Findings hemoperitoneum, left ovarian cyst, 3 cm Description of Procedure The patient was taken to the operating room. She was prepped and draped in the dorsal lithotomy position after induction general anesthesia. A 5 mm incision was made with a scalpel on the abdominal skin in the left upper quadrant of the abdomen. A 5 mm trocar was inserted into the intra-abdominal cavity under direct visualization the scope. In the same fashion a 5 mm left lower quadrant trocar was inserted and a 5 mm infraumbilical trocar was inserted. left ovarian cystectomy was performed. Is performed with scissors and cautery. Cyst and cyst capsule portions were resected, the cut surface was cauterized. Pelvis was irrigated copiously. The pelvis was irrigated. The pneumoperitoneum was reduced. The trocars were removed. Skin was closed with subcuticular 4 micro. The patient's incisions were covered with Dermabond. She was taken recovery room in stable condition. Sponge lap and needle counts were correct x2. Estimated Blood Loss 20 Complications No immediate complications Condition Stable Disposition Same day
[2022-03-28] MEDS: ONDANSETRON INJ 4 MG/2 ML VIAL IV PUSH (13:27)
[2022-03-28] MEDS: fentaNYL CITRATE INJ (*CRX) 100 MCG/2 ML VIAL 25 MCG IV PUSH ×4 (13:45→14:01)
[2022-03-28] MEDS: oxyCODONE HCL (*CRX) 5 MG TAB IR PO (15:15)
== END 2022-03-28 15:50 | disposition home or self-care (01) ==
PROVIDERS: PCP Family Medicine; Visit Provider Obstetrics & Gynecology
PROC: (CPT 49320; principal; 2022-03-28 10:30)
DX: N83.202 Unspecified ovarian cyst, left side (principal); K66.1 Hemoperitoneum; R10.2 Pelvic and perineal pain; J45.909 Unspecified asthma, uncomplicated; Z79.51 Long term (current) use of inhaled steroids; E66.9 Obesity, unspecified; Z68.30 Body mass index [BMI] 30.0-30.9, adult
CPT/HCPCS: 58662; 88305; A9270; J1100; J1885; J2250; J2405; J2704; J2710; J3010; J7120

== ENCOUNTER 2022-11-27 14:31 | Emergency (ER) | payer OTHER, BC, SELFPAY ==
--- NOTE | ~2022-11-27 | CT_ITS ---
EXAMINATION: CT brain wo con DATE: 11/27/2022 18:52 INDICATION: migraine X 3d, hx chiari malformation . TECHNIQUE: Computed tomography (CT) of the head was performed without intravenous contrast. The mA wa s adjusted according to patient size. Iterative reconstruction technique was employed. The dose-lengt h product was 605.33 mGy-cm. COMPARISON: 10/16/2021. FINDINGS: No acute intracranial hemorrhage or extra-axial fluid collection. No hydrocephalus, mass, or herniation. No acute ischemic infarct. Unremarkable dural venous sinus attenuation. No acute osseous abnormality. The aerated spaces are clear. Stable Chiari malformation. Status post lower mid occipital craniectomy. IMPRESSION: No acute intracranial process. Reviewed, dictated and finalized at location K.
[2022-11-27 14:47] VITALS: BP 135/78; PULSE 99; RESP 18; TEMP 36.6; O2SAT 100
--- NOTE | 2022-11-27 18:00 | ED.HA ---
HPI - Headache General Chief Complaint: Headache Stated Complaint: migraine Time Seen by Provider: 11/27/22 16:58 Source: patient Mode of arrival: ambulatory Limitations: no limitations History of Present Illness HPI Narrative: Patient is a 22-year-old female who presents to the ED with report of migraine headache. Patient reports she has had a fairly constant, progressively worsening headache over the last 3 days. She has a history of migraines, occurring 2-3 times per week. She states this migraine feels typical of her usual migraines, but also typical of the migraines she experienced prior to her chiari malformation revision in 2017. Pain begins in her lower posterior head and radiates throughout. She also reports having room spinning dizziness, nausea, photophobia. Denies fevers, neck stiffness, vision changes, syncope, weakness, numbness. Patient last took Tylenol at 11 AM. Patient is and currently 11 weeks gestation. ACCOUNTING PRACTICE MANAGER is Dr. Dietz. She has had frequent nausea and vomiting associated with her thus far. Denies any abdominal pain or vaginal bleeding. Related Data Home Medications Medication Instructions Recorded Confirmed acetaminophen 325 mg capsule 325 mg PO PRN PRN Pain 03/22/22 03/22/22 (Tylenol) albuterol sulfate 90 mcg/actuation 2 puff inhalation QID PRN 03/22/22 03/22/22 aerosol inhaler Shortness Of Breath Allergies Allergy/AdvReac Type Severity Reaction Status Date / Time amoxicillin Allergy Severe Hives / Verified 11/27/22 17:26 Red Face Penicillins Allergy Severe Hives / Verified 11/27/22 17:26 Red Face Influenza Virus Vaccines Allergy Intermediate Egg Allergy Verified 11/27/22 17:26 sulfamethoxazole Allergy Intermediate THROAT Verified 11/27/22 17:26 SWELLING trimethoprim Allergy Intermediate THROAT Verified 11/27/22 17:26 SWELLING egg AdvReac Intermediate SWELLING, Verified 11/27/22 17:26 FEVER surgical glue Allergy Intermediate Hives Uncoded 03/28/22 08:59 Review of Systems Review of Systems: CONSTITUTIONAL: Denies fever, chills, or sweats. EYES: Reports photophobia. Denies visual changes. CARDIOVASCULAR: Denies chest pain. RESPIRATORY: Denies dyspnea. GASTROINTESTINAL: See HPI. MUSCULOSKELETAL: Denies neck stiffness. NEUROLOGIC: See HPI. All systems reviewed & are unremarkable except as noted in HPI and below PMFSH Past Medical History Medical History Anxiety Asthma Chiari malformation Depression Overweight (BMI 25.0-29.9) Surgical History Surgical History H/O craniotomy H/O laparoscopy Hx of cholecystectomy Family History Family History Father Hypertension High cholesterol Mother Hypertension Cholelithiases Gilbert syndrome Mitral valve prolapse High cholesterol Migraines Endometriosis Kidney stones Cerebrovascular accident Sibling Migraines Asthma Grandparent Hypertension Ovarian cancer Lung cancer Pancreatic cancer Grandparent Diabetes mellitus Hypotension Renal cancer Gynecomastia, male Grandparent Cerebrovascular accident Social History Social History Smoking status: Never smoker Second hand tobacco smoke exposure: No Alcohol intake: current Alcohol use details: 1 PER MONTH Substance use: never Living arrangements: with family Spiritual care concerns: No Exam Narrative: GENERAL: Well appearing, obese with BMI of 33.3, non-toxic, in no acute distress. HEAD: Normocephalic, atraumatic. EYES: PERRL/EOMI, conjunctivae clear bilaterally. No nystagmus. EARS:TMS clear, with good light reflex. No erythema or bulging. NECK: Supple. No adenopathy, no masses. No meningeal signs. RESPIRATORY: Airway patent, respirations nonlabored.
[2022-11-27] MEDS: ACETAMINOPHEN 500 MG TABLET 1000 MG PO (18:04)
[2022-11-27] MEDS: MECLIZINE HCL 25 MG TABLET PO (18:05)
[2022-11-27] MEDS: METOCLOPRAMIDE HCL INJ 10 MG/2 ML VIAL IV PUSH (18:06)
[2022-11-27] MEDS: diphenhydrAMINE HCl INJ 50 MG/ML VIAL 25 MG IV PUSH (18:06)
[2022-11-27] MEDS: SODIUM CHLORIDE 0.9% IV 1,000 ML 999 ML IV CONT (18:06)
[2022-11-27 20:34] VITALS: BP 131/74; PULSE 90; RESP 18; O2SAT 100
== END 2022-11-27 20:34 | disposition home or self-care (01) ==
PROVIDERS: Emergency Provider Physician Assistant
DX: O99.351 Diseases of the nervous system complicating pregnancy, first trimester (principal); G43.909 Migraine, unspecified, not intractable, without status migrainosus; O99.511 Diseases of the respiratory system complicating pregnancy, first trimester; J45.909 Unspecified asthma, uncomplicated; O99.281 Endocrine, nutritional and metabolic diseases complicating pregnancy, first trimester; E66.3 Overweight; Z90.49 Acquired absence of other specified parts of digestive tract; Z3A.11 11 weeks gestation of pregnancy
CPT/HCPCS: 70450; 96361; 96374; 96375; 99284; A9270; J1200; J2765; J7030

== ENCOUNTER 2022-12-19 14:55 | Observation (INO) | payer OTHER, BC, SELFPAY ==
[2022-12-19 15:41] VITALS: BP 146/87; PULSE 106; RESP 18; TEMP 37.1; O2SAT 97
[2022-12-19 17:35] LABS: Basophils Percent Auto 0.2 % (0.2-1.2); Eosinophils Absolute Auto 0.1 K/mm3 (0-0.3); Eosinophils Percent Auto 0.8 % (0-4.4); Hematocrit 40.8 % (37.0-47.0); Hemoglobin 13.6 g/dL (12.0-15.0); Immature Granulocyte Absolute 0.04 K/mm3 (0.00-0.031); Immature Granulocyte Percent A 0.4 % (0-0.5); Lymphocytes Absolute Auto 2.74 K/mm3 (0.9-3.2); Lymphocytes Percent Auto 25.1 % (18.3-44.2); Mean Corpuscular HGB Conc 33.3 g/dl (32-36); Mean Corpuscular Hemoglobin 30.9 pg (26-34); Mean Corpuscular Volume 92.7 fl (80-100); Mean Platelet Volume 9.9 fl (7.4-10.4); Monocytes Absolute Auto 0.8 K/mm3 (0.1-0.6); Monocytes Percent Auto 7.7 % (2.6-8.5); Neutrophils Absolute Auto 7.2 K/mm3 (1.3-6.7); Neutrophils Percent Auto 65.8 % (45.5-73.1); Platelet Count Result 326 k/mm3 (150-375); Red Cell Distribution Width 12.8 % (11.5-14.5); White Blood Count 10.9 K/mm3 (4.5-10.0)
[2022-12-19 17:46] LABS: Alanine Aminotransferase 16 U/L (6-35); Alkaline Phosphatase 74 U/L (38-126); Anion Gap 8 mmol/L (8-16); Aspartate Amino Transferase 19 U/L (14-36); Bilirubin,Total 0.4 mg/dL (0.2-1.3); Blood Urea Nitrogen 5 mg/dL (7-17); Calcium 9.2 mg/dL (8.4-10.2); Carbon Dioxide 20 mmol/L (22-30); Chloride 106 mmol/L (98-107); Estimated CRCL calculation 154 ml/min; Estimated Glomerular Filt Rate > 60; Glucose 88 mg/dL (65-110); Lipase 128 U/L (23-300); Potassium 3.7 mmol/L (3.4-5.0); Sodium 134 mmol/L (137-145)
[2022-12-19] MEDS: LACTATED RINGERS 2,000 ML 999 ML IV CONT (18:02)
--- NOTE | 2022-12-19 18:06 | ED.NAVMDI ---
HPI - Nausea/Vomiting/Diarrhea General Chief complaint: Nausea/Vomiting/Diarrhea Stated complaint: 14 weeks preg - N/V Time Seen by Provider: 12/19/22 17:31 History of Present Illness HPI Narrative: This is a 22-year-old female -0-0-1 at 15 weeks, who presents emergency department as recommended by her OB for persistent vomiting. The patient states she has thrown up several times a day for the past 3 to 4 days. She notes a small amount of bright red blood without melena or blood in the stool. She states she has tried previously prescribed Zofran without improvement. She denies vaginal bleeding or dysuria. Related Data Home Medications Medication Instructions Recorded Confirmed acetaminophen 325 mg capsule 325 mg PO PRN PRN Pain 03/22/22 03/22/22 (Tylenol) albuterol sulfate 90 mcg/actuation 2 puff inhalation QID PRN 03/22/22 03/22/22 aerosol inhaler Shortness Of Breath Allergies Allergy/AdvReac Type Severity Reaction Status Date / Time amoxicillin Allergy Severe Hives / Verified 11/27/22 17:26 Red Face Penicillins Allergy Severe Hives / Verified 11/27/22 17:26 Red Face Influenza Virus Vaccines Allergy Intermediate Egg Allergy Verified 11/27/22 17:26 sulfamethoxazole Allergy Intermediate THROAT Verified 11/27/22 17:26 SWELLING trimethoprim Allergy Intermediate THROAT Verified 11/27/22 17:26 SWELLING egg AdvReac Intermediate SWELLING, Verified 11/27/22 17:26 FEVER surgical glue Allergy Intermediate Hives Uncoded 03/28/22 08:59 Review of Systems Review of Systems: CONSTITUTIONAL: Denies fever, chills, or sweats. CARDIOVASCULAR: Denies chest pain, palpitations, or edema. RESPIRATORY: Denies cough or dyspnea. GASTROINTESTINAL: Nausea and vomiting denies abdominal pain, or diarrhea. GENITOURINARY: Denies dysuria or hematuria. SKIN: Denies rash or itching. MUSCULOSKELETAL: Denies back pain, joint pain, or myalgia. NEUROLOGIC: Denies headache, numbness, dizziness, or weakness. PSYCHIATRIC: Denies anxiety or depression. [facility] Past Medical History Medical History Anxiety Asthma Chiari malformation Depression Overweight (BMI 25.0-29.9) Surgical History Surgical History H/O craniotomy H/O laparoscopy Hx of cholecystectomy Family History Family History Father Hypertension High cholesterol Mother Hypertension Cholelithiases Gilbert syndrome Mitral valve prolapse High cholesterol Migraines Endometriosis Kidney stones Cerebrovascular accident Sibling Migraines Asthma Grandparent Hypertension Ovarian cancer Lung cancer Pancreatic cancer Grandparent Diabetes mellitus Hypotension Renal cancer Gynecomastia, male Grandparent Cerebrovascular accident Social History Social History Smoking status: Never smoker Second hand tobacco smoke exposure: No Alcohol intake: current Alcohol use details: 1 PER MONTH Substance use: never Living arrangements: with family Spiritual care concerns: No Exam Narrative: GENERAL: Well-developed, well-nourished, and in no acute distress. HEAD: Normocephalic, atraumatic. EYES: PERRLA and EOMI. ENT: Nares clear, no rhinorrhea or epistaxis. Mucous membranes moist. Oropharynx without tonsillar hypertrophy exudate or other lesions. CHEST: Clear to auscultation. No respiratory distress. No wheezes rales or rhonchi HEART: Regular rate and rhythm. No murmur heard. Normal peripheral pulses. ABDOMEN: Soft, nontender, nondistended, normal active bowel sounds. EXTREMITIES: Normal range of motion. No edema. SKIN: Warm, dry, no rash. NEURO: Alert and oriented x3. Moving all 4 limbs purposefully. PSYCH: Normal mood and affect. Course Course Emergency Course: 19:10 - White
[2022-12-19 18:42] LABS: Appearance Urine Slightly Cloudy (Clear); Bilirubin Urine Negative (Negative); Blood Urine Negative (Negative); Color Urine Yellow (Yellow); Glucose Urine UA Negative (Negative); Ketones Urine 1+ mg/dL (Negative); Leukocyte Esterase Ur Negative LEU/UL (Negative); Nitrate Urine Negative (Negative); Protein Urine 1+ mg/dL (Negative); Specific Grav Ur >= 1.030 (1.001-1.035); Urobilinogen Urine 0.2 mg/dL (<2.0); pH Urine 5.5 (5.0-9.0)
[2022-12-19 18:55] LABS: RBC Urine None seen /hpf (0-2)
[2022-12-19 18:56] LABS: Squamous Epithelial Cell Urine Moderate /hpf (Few)
[2022-12-19 18:57] LABS: Add Urine Microscopic? YES; Bacteria Urine 1+ /hpf
[2022-12-19] MEDS: ONDANSETRON HCL ODT 4 MG TABLET PO (19:23)
[2022-12-19 20:04] VITALS: BP 130/74; PULSE 96; RESP 18; O2SAT 99
--- NOTE | 2022-12-19 20:17 | OBADM ---
This patient, Cee Polanco, admitted to the OB room OB Post [facility] for observation. Patient/family oriented to hospital policies and general routines including ID bracelet, bed and alarms, visiting hours, pain management, procedures, bathroom and other care routines, personal items, smoking policy, room service/diet, and visiting hours. Patient/Family are encouraged to report perceived risks to care and to ask questions if they do not understand what they are told or what they should do.
[2022-12-19 20:40] VITALS: BMI 33.3
[2022-12-19] MEDS: FAMOTIDINE 20 MG/2 ML VIAL IV PUSH (21:28)
--- NOTE | 2022-12-19 23:23 | PC.NURSE ---
Called Dr. Dietz with pt status. Pt states that nausea continues. Pt ate crackers and chicken nuggets. States that she vomited fluid only after eating. Orders to keep over night.
[2022-12-19] MEDS: METOCLOPRAMIDE HCL INJ 10 MG/2 ML VIAL IV PUSH (23:35)
[2022-12-19 23:38] VITALS: BP 120/71; PULSE 92
[2022-12-19 23:40] VITALS: TEMP 36.4
[2022-12-20] MEDS: ONDANSETRON INJ 4 MG/2 ML VIAL IV PUSH (01:34)
[2022-12-20] MEDS: ACETAMINOPHEN 500 MG TABLET 1000 MG PO (01:42)
[2022-12-20 07:09] VITALS: BP 120/74; PULSE 81
[2022-12-20 07:15] VITALS: TEMP 36.3
[2022-12-20] MEDS: ONDANSETRON HCL ODT 4 MG TABLET PO (07:28)
--- NOTE | 2022-12-20 08:28 | PM.IMHP ---
H&P: HPI History of Present Illness Date/Time: 12/20/22 08:28 Chief Complaint: nausea vomiting Narrative: 22-year-old female with nausea vomiting of , seen in the emergency department, sent to Labor delivery, observed, given fluids, normal CMP and CBC. treated with antiemetics and supportive measures, such as IV fluids. Reassuring status, to discharge was tolerating food. Review of Systems Review of Systems: All systems reviewed & are unremarkable except as noted in HPI and below Constitutional: Constitutional: Denies chills, Denies fatigue, Denies fever(s) and Denies weakness Eyes: Eyes: Denies blurry vision, Denies change in vision, Denies loss of peripheral vision, Denies loss of vision, Denies other visual disturbances and Denies eye pain ENT: Denies vertigo, Denies dizziness, Denies hearing loss, Denies mouth pain, Denies nasal obstruction, Denies neck mass and Denies neck pain Cardiovascular: Cardiovascular: Denies chest pain, Denies diaphoresis, Denies syncope, Denies leg edema and Denies dyspnea Respiratory: Respiratory: Denies chest congestion, Denies cough, Denies hemoptysis, Denies dyspnea and Denies wheezing Gastrointestinal: Gastrointestinal: Denies abdominal pain, Denies constipation, Denies diarrhea, Denies nausea and Denies vomiting Genitourinary: Genitourinary: Denies hematuria, Denies change in libido, Denies nocturia, Denies genital lesions, Denies flank pain and Denies urinary urgency Musculoskeletal: Musculoskeletal: Denies abnormal gait, Denies back pain, Denies myalgias, Denies arthralgias, Denies joint swelling, Denies muscle weakness and Denies neck pain Integumentary/Breasts: Skin/Breast: Denies swelling, Denies breast pain, Denies breast mass, Denies dry skin, Denies nipple discharge, Denies unusual bruising and Denies jaundice Neurologic: Denies Neuro-related abnormal movements, Denies Abnormal speech present, Denies abnormal gait, Denies behavioral changes, Denies confusion, Denies vertigo, Denies dizziness, Denies syncope, Denies loss of vision, Denies memory loss, Denies convulsions and Denies weakness Psychiatric: Psychiatric: Denies abnormal sleep pattern, Denies behavioral changes, Denies change in libido, Denies confusion, Denies depression, Denies anhedonia and Denies memory loss Endocrine: Endocrine: Reports no additional endocrine complaints, Denies change in libido and Denies fatigue Hematologic/Lymphatic: Hematologic/Lymphatic: Reports no additional hematologic/lymphatic complaints Allergic/Immunologic: Allergic/Immunologic: Reports no additional allergic/immunologic complaints and Denies wheezing PMFSH Past Medical History Medical History Anxiety Asthma Chiari malformation Depression Overweight (BMI 25.0-29.9) Surgical History Surgical History H/O craniotomy H/O laparoscopy Hx of cholecystectomy Family History Family History Father Hypertension High cholesterol Mother Hypertension Cholelithiases Gilbert syndrome Mitral valve prolapse High cholesterol Migraines Endometriosis Kidney stones Cerebrovascular accident Sibling Migraines Asthma Grandparent Hypertension Ovarian cancer Lung cancer Pancreatic cancer Grandparent Diabetes mellitus Hypotension Renal cancer Gynecomastia, male Grandparent Cerebrovascular accident Social History Social History Smoking status: Never smoker Second hand tobacco smoke exposure: No Alcohol intake: current Alcohol use details: 1 PER MONTH Substance use: never Living arrangements: with family Spiritual care concerns: No Meds Home Medications and Allergies Home Medications Medication Instructions Recorded Confirmed Type acetaminophen 325 mg
--- NOTE | 2023-01-13 20:28 | PM.OBTRLD ---
OB - Triage/Final Diagnosis Visit Information Comments/Additional reasons for admission: I have assessed the risk for this patient, Cee Polanco, and determined that she would benefit from observation care. Evaluation Laboratory results: Laboratory Tests 12/19/22 12/19/22 17:24 17:39 WBC 10.9 H RBC 4.40 Hgb 13.6 D Hct 40.8 MCV 92.7 MCH 30.9 MCHC 33.3 RDW 12.8 Plt Count 326 D MPV 9.9 Immature Gran % (Auto) 0.4 Neut % (Auto) 65.8 Lymph % (Auto) 25.1 [place] % (Auto) 7.7 Eos % (Auto) 0.8 Baso % (Auto) 0.2 Lymph # (Auto) 2.74 [place] # (Auto) 0.8 H Eos # (Auto) 0.1 Baso # (Auto) 0.0 Abs Immat Gran (auto) 0.04 H Absolute Neuts (auto) 7.2 H Absolute Nucleated RBC 0.0 Nucleated RBC % 0.0 Sodium 134 L Potassium 3.7 Chloride 106 Carbon Dioxide 20 L Anion Gap 8 BUN 5 L Creatinine 0.50 L Estim Creat Clear Calc 154 Estimated GFR > 60 Glucose 88 Calcium 9.2 Total Bilirubin 0.4 AST 19 ALT 16 Alkaline Phosphatase 74 Total Protein 7.0 Albumin 4.0 Lipase 128 Urine Color Yellow Urine Appearance Slightly cloudy Urine pH 5.5 Ur Specific [place] >= 1.030 Urine Protein 1+ H Urine Glucose (UA) Negative Urine Ketones 1+ H Ur Blood (Man) Negative Urine Nitrate Negative Urine Bilirubin Negative Urine Urobilinogen 0.2 Leukocyte Esterase Rfl Negative Urine RBC None seen Urine WBC 4-6 H Ur Squamous Epith Cells Moderate H Urine Bacteria 1+ Final Diagnosis (1) Nausea and vomiting: Qualifiers: Vomiting type: unspecified Qualified Code(s): R11.2 - Nausea with vomiting, unspecified Code(s): R11.2 - Nausea with vomiting, unspecified Status: Acute
== END 2022-12-20 09:53 | disposition home or self-care (01) ==
LOC: ANHED 19:26 → ANHOBPP 19:51
PROVIDERS: Student in an Organized Health Care Education/Training Program; Admitting Provider Obstetrics & Gynecology; Emergency Provider Preventive Medicine Aerospace Medicine; Visit Provider Obstetrics & Gynecology
DX: O21.9 Vomiting of pregnancy, unspecified (principal); O99.281 Endocrine, nutritional and metabolic diseases complicating pregnancy, first trimester; R82.4 Acetonuria; Z3A.14 14 weeks gestation of pregnancy
CPT/HCPCS: 36415; 80053; 81001; 81025; 83690; 85025; 96374; 96375; 99285; A9270; G0378; J2405; J2765; J7120

== ENCOUNTER 2023-02-04 18:05 | Emergency (ER) | payer OTHER, SELFPAY ==
[2023-02-04 18:43] VITALS: BP 129/76; PULSE 122; RESP 16; TEMP 37.1; O2SAT 98
--- NOTE | 2023-02-04 19:02 | ED.URI ---
HPI - URI/Sore Throat General Chief Complaint: Upper Respiratory Infection Stated Complaint: Shortness Of Breath Time Seen by Provider: 02/04/23 19:02 Source: patient Mode of arrival: ambulatory Limitations: no limitations History of Present Illness HPI Narrative: 22-year-old female presents with complaint nasal congestion for the past 2-3 weeks. Not taking any [id number] medications to treat her symptoms. States she is 21 weeks with history of preeclampsia and avoids medications if she does not need them. Over the last 3 days congestion is worse with headaches, postnasal drainage, sore throat, cough. Today states she felt short of breath after coughing. No chest pain. Patient is well-appearing and talkative. No respiratory distress noted. Afebrile. All systems reviewed and negative except as noted above. Related Data Allergies Allergy/AdvReac Type Severity Reaction Status Date / Time amoxicillin Allergy Severe Hives / Verified 11/27/22 17:26 Red Face Penicillins Allergy Severe Hives / Verified 11/27/22 17:26 Red Face Influenza Virus Vaccines Allergy Intermediate Egg Allergy Verified 11/27/22 17:26 sulfamethoxazole Allergy Intermediate THROAT Verified 11/27/22 17:26 SWELLING trimethoprim Allergy Intermediate THROAT Verified 11/27/22 17:26 SWELLING egg AdvReac Intermediate SWELLING, Verified 11/27/22 17:26 FEVER surgical glue Allergy Intermediate Hives Uncoded 03/28/22 08:59 Review of Systems Review of Systems: CONSTITUTIONAL: Denies fever, chills, or sweats. Reports fatigue. EYES: Denies visual changes, redness, or discharge. ENT: Reports rhinorrhea, congestion, sore throat. Denies otalgia. CARDIOVASCULAR: Denies chest pain, palpitations, or edema. RESPIRATORY: Reports cough and dyspnea. GASTROINTESTINAL: Denies abdominal pain, nausea, vomiting, or diarrhea. GENITOURINARY: Denies dysuria or hematuria. SKIN: Denies rash or itching. MUSCULOSKELETAL: Denies back pain, joint pain, or myalgia. NEUROLOGIC: Reports headache. Denies numbness, or weakness. PSYCHIATRIC: Denies anxiety or depression. All other systems reviewed are negative, except as documented in HPI. [facility] Past Medical History Medical History (Updated 02/04/23 @ 19:13 by Paris Godwin NP) Anxiety Asthma Chiari malformation Depression Nausea and vomiting Overweight (BMI 25.0-29.9) Surgical History Surgical History H/O craniotomy H/O laparoscopy Hx of cholecystectomy Family History Family History Father Hypertension High cholesterol Mother Hypertension Cholelithiases Gilbert syndrome Mitral valve prolapse High cholesterol Migraines Endometriosis Kidney stones Cerebrovascular accident Sibling Migraines Asthma Grandparent Hypertension Ovarian cancer Lung cancer Pancreatic cancer Grandparent Diabetes mellitus Hypotension Renal cancer Gynecomastia, male Grandparent Cerebrovascular accident Social History Social History Smoking status: Never smoker Second hand tobacco smoke exposure: No Alcohol intake: current Alcohol use details: 1 PER MONTH Substance use: never Living arrangements: with family Spiritual care concerns: No Comments At time of signature, agree with nursing past medical, surgical, social and family history. There is no relevant family history pertinent to the presenting complaint. Exam Narrative: GENERAL: This is a well-nourished, well-developed patient, in no apparent distress. HEAD: normocephalic, atraumatic. EYES: PERRL. Sclera clear/white. Vision is grossly intact. EARS: External ears normal, auditory canals clear and without drainage, fluid bilateral TMs without erythema or perforation. Hearing grossly intact. NOSE: External nose normal with purul
== END 2023-02-04 19:17 | disposition home or self-care (01) ==
PROVIDERS: Emergency Provider Nurse Practitioner Family
DX: J01.90 Acute sinusitis, unspecified (principal); B96.89 Other specified bacterial agents as the cause of diseases classified elsewhere; Z20.822 Contact with and (suspected) exposure to COVID-19
CPT/HCPCS: 87081; 87426; 87880; 99213; C9803; G0463

== ENCOUNTER 2023-02-19 17:38 | Outpatient (CLI) | payer OTHER, SELFPAY ==
[2023-02-19] VITALS (8 sets, daily range): BP systolic 108–129; BP diastolic 64–85; PULSE 84–96
[2023-02-19 18:29] LABS: Basophils Percent Auto 0.2 % (0.2-1.2); Eosinophils Percent Auto 0.3 % (0-4.4); Hematocrit 36.5 % (37.0-47.0); Immature Granulocyte Absolute 0.05 K/mm3 (0.00-0.031); Immature Granulocyte Percent A 0.4 % (0-0.5); Lymphocytes Percent Auto 18.8 % (18.3-44.2); Mean Corpuscular HGB Conc 32.9 g/dl (32-36); Mean Corpuscular Hemoglobin 30.2 pg (26-34); Mean Corpuscular Volume 91.9 fl (80-100); Mean Platelet Volume 10.5 fl (7.4-10.4); Monocytes Absolute Auto 0.9 K/mm3 (0.1-0.6); Monocytes Percent Auto 6.7 % (2.6-8.5); Neutrophils Absolute Auto 9.8 K/mm3 (1.3-6.7); Neutrophils Percent Auto 73.6 % (45.5-73.1); Platelet Count Result 325 k/mm3 (150-375); Red Blood Count 3.97 M/mm3 (4.2-5.4); White Blood Count 13.3 K/mm3 (4.5-10.0)
[2023-02-19 18:41] LABS: Alanine Aminotransferase 12 U/L (6-35); Albumin Level 3.9 g/dL (3.5-5.1); Alkaline Phosphatase 117 U/L (38-126); Anion Gap 9 mmol/L (8-16); Aspartate Amino Transferase 17 U/L (14-36); Bilirubin,Total 0.5 mg/dL (0.2-1.3); Blood Urea Nitrogen 2 mg/dL (7-17); Carbon Dioxide 19 mmol/L (22-30); Chloride 106 mmol/L (98-107); Estimated Glomerular Filt Rate > 60; Glucose 83 mg/dL (65-110); Potassium 3.8 mmol/L (3.4-5.0); Sodium 134 mmol/L (137-145); Uric Acid 3.1 mg/dL (2.5-7.5)
[2023-02-19 19:02] LABS: Appearance Urine Clear (Clear); Bilirubin Urine Negative (Negative); Blood Urine Negative (Negative); Color Urine Yellow (Yellow); Glucose Urine UA Negative (Negative); Ketones Urine 2+ mg/dL (Negative); Leukocyte Esterase Ur Negative LEU/UL (NEGATIVE); Nitrate Urine Negative (Negative); Protein Urine Negative (Negative); Specific Grav Ur 1.013 (1.001-1.035); Urobilinogen Urine 0.2 mg/dL (<2.0); pH Urine 5.5 (5.0-9.0)
[2023-02-19 19:05] LABS: Add Urine Microscopic? NO
[2023-02-19 19:12] LABS: Total Protein Urine Random 9 mg/dL; Ur Ttl Prot Creatinine Ratio 0.07 mg/mg (0-0.20)
== END 2023-02-19 19:27 | disposition home or self-care (01) ==
LOC: ANHOBOP 17:43 → ANHOBPP 17:43
PROVIDERS: Visit Provider Obstetrics & Gynecology
DX: O13.9 Gestational [pregnancy-induced] hypertension without significant proteinuria, unspecified trimester (principal); Z3A.00 Weeks of gestation of pregnancy not specified
CPT/HCPCS: 36415; 59025; 80053; 81003; 82570; 84156; 84550; 85025; 87086; 87088; 99199

== ENCOUNTER 2023-04-03 23:37 | Observation (INO) | payer OTHER, SELFPAY ==
[2023-04-04 00:03] VITALS: BMI 31.8
[2023-04-04 00:05] VITALS: BP 133/78; PULSE 96; PULSE 99; TEMP 36.5; O2SAT 99
[2023-04-04 01:03] LABS: Appearance Urine Cloudy (Clear); Bacteria Urine None Seen /hpf; Bilirubin Urine Negative (Negative); Blood Urine 2+ (Negative); Calcium Oxalate Crystals Urine Present /hpf; Color Urine Yellow (Yellow); Glucose Urine UA Negative (Negative); Ketones Urine 1+ mg/dL (Negative); Leukocyte Esterase Ur Negative LEU/UL (NEGATIVE); Leukocyte Esterase Ur Negative LEU/UL (Negative); Need Manual Microscopic Reviewed; Nitrate Urine Negative (Negative); Non Pathogenic Casts 0-2; Protein Urine Trace mg/dL (Negative); RBC Urine 21-50 /hpf (0-2); Specific Grav Ur 1.018 (1.001-1.035); Squamous Epithelial Cell Urine Few /hpf (Few); WBC Urine 0-5 /hpf; WBC Urine 0-5 /hpf (0-3); pH Urine 6.5 (5.0-9.0)
[2023-04-04 01:04] LABS: Add Urine Microscopic? YES
[2023-04-04] MEDS: NITROFURANTOIN MONOHYD MACROCR 100 MG CAP PO (01:24)
--- NOTE | 2023-04-05 18:23 | PM.OBTRLD ---
OB - Triage/Final Diagnosis Visit Information Date of evaluation: 04/03/23 Reason for evaluation: other (back pain) Comments/Additional reasons for admission: I have assessed the risk for this patient, Cee Polanco, and determined that she would benefit from observation care. Evaluation Laboratory results: Laboratory Tests 04/03/23 23:55 Urine Color Yellow Urine Appearance Cloudy H Urine pH 6.5 Ur Specific [place] 1.018 Urine Protein Trace Urine Glucose (UA) Negative Urine Ketones 1+ H Ur Blood (Man) 2+ H Urine Nitrate Negative Urine Bilirubin Negative Urine Urobilinogen 1.0 Ur Leukocyte Esterase Negative Add Ur Microanalysis Reviewed Leukocyte Esterase Rfl Negative Urine RBC 21-50 H Urine WBC 0-5 Ur Squamous Epith Cells Few Calcium Oxalate Crystal Present Urine Bacteria None seen Urine Casts 0-2
== END 2023-04-04 01:39 | disposition home or self-care (01) ==
PROVIDERS: Advanced Practice Midwife; Admitting Provider Obstetrics & Gynecology; Visit Provider Obstetrics & Gynecology
DX: O99.891 Other specified diseases and conditions complicating pregnancy (principal); M54.9 Dorsalgia, unspecified; Z3A.30 30 weeks gestation of pregnancy
CPT/HCPCS: 81001; 87086; 87088; A9270; G0378; G0379

== ENCOUNTER 2023-05-17 15:47 | Outpatient (CLI) | payer OTHER, SELFPAY ==
[2023-05-17] VITALS (10 sets, daily range): BP systolic 123–140; BP diastolic 75–83; PULSE 90–127; BMI 33.3
[2023-05-17 16:31] LABS: Basophils Percent Auto 0.2 % (0.2-1.2); Eosinophils Percent Auto 0.4 % (0-4.4); Hematocrit 32.9 % (37.0-47.0); Hemoglobin 10.2 g/dL (12.0-15.0); Immature Granulocyte Absolute 0.09 K/mm3 (0.00-0.031); Immature Granulocyte Percent A 0.8 % (0-0.5); Lymphocytes Absolute Auto 2.08 K/mm3 (0.9-3.2); Lymphocytes Percent Auto 19.6 % (18.3-44.2); Mean Corpuscular Hemoglobin 25.6 pg (26-34); Mean Corpuscular Volume 82.7 fl (80-100); Mean Platelet Volume 11.4 fl (7.4-10.4); Monocytes Absolute Auto 0.8 K/mm3 (0.1-0.6); Monocytes Percent Auto 7.6 % (2.6-8.5); Neutrophils Absolute Auto 7.6 K/mm3 (1.3-6.7); Neutrophils Percent Auto 71.4 % (45.5-73.1); Platelet Count Result 287 k/mm3 (150-375); Red Blood Count 3.98 M/mm3 (4.2-5.4); Red Cell Distribution Width 14.1 % (11.5-14.5); White Blood Count 10.6 K/mm3 (4.5-10.0)
[2023-05-17 16:44] LABS: Alanine Aminotransferase 12 U/L (6-35); Albumin Level 3.7 g/dL (3.5-5.1); Alkaline Phosphatase 181 U/L (38-126); Anion Gap 9 mmol/L (8-16); Aspartate Amino Transferase 16 U/L (14-36); Bilirubin,Total 0.6 mg/dL (0.2-1.3); Blood Urea Nitrogen 4 mg/dL (7-17); Calcium 8.9 mg/dL (8.4-10.2); Carbon Dioxide 16 mmol/L (22-30); Chloride 110 mmol/L (98-107); Estimated CRCL calculation 157 ml/min; Estimated Glomerular Filt Rate > 60; Glucose 100 mg/dL (65-110); Potassium 3.5 mmol/L (3.4-5.0); Sodium 135 mmol/L (137-145)
[2023-05-17 16:45] LABS: Appearance Urine Cloudy (Clear); Bacteria Urine 1+ /hpf; Bilirubin Urine Negative (Negative); Blood Urine Negative (Negative); Calcium Oxalate Crystals Urine Present /hpf; Color Urine Dark Yellow (Yellow); Glucose Urine UA Negative (Negative); Ketones Urine Trace mg/dL (Negative); Leukocyte Esterase Ur Negative LEU/UL (Negative); Nitrate Urine Negative (Negative); Non Pathogenic Casts 0-2; Protein Urine 1+ mg/dL (Negative); Specific Grav Ur 1.024 (1.001-1.035); Squamous Epithelial Cell Urine Many /hpf (Few)
[2023-05-17 16:46] LABS: Add Urine Microscopic? YES
[2023-05-17 17:06] LABS: Creatinine Urine 243.3 mg/dL; Total Protein Urine Random 17 mg/dL; Ur Ttl Prot Creatinine Ratio 0.07 mg/mg (0-0.20)
[2023-05-17] MEDS: ACETAMINOPHEN 500 MG TABLET 1000 MG PO (17:27)
[2023-05-17] MEDS: CAFFEINE 200 MG TABLET PO (17:27)
[2023-05-17] MEDS: diphenhydrAMINE HCl CAP 25 MG CAPSULE PO (19:19)
[2023-05-17] MEDS: METOCLOPRAMIDE HCL 10 MG TABLET PO (19:19)
== END 2023-05-17 20:33 ==
LOC: ANHOBOP 15:57 → ANHLDR 15:58
PROVIDERS: Visit Provider Obstetrics & Gynecology
DX: O13.9 Gestational [pregnancy-induced] hypertension without significant proteinuria, unspecified trimester (principal)
CPT/HCPCS: 36415; 59025; 80053; 81001; 82570; 84156; 84550; 85025; 87086; 87088; 99199; A9270

== ENCOUNTER 2023-05-19 16:18 | Inpatient (IN) | payer OTHER, SELFPAY ==
[2023-05-19] VITALS (51 sets, daily range): BP systolic 122–145; BP diastolic 76–97; PULSE 86–134; RESP 17–18; TEMP 36.4–36.6; O2SAT 98–100; BMI 31.8; BMI 33.3
[2023-05-19 15:46] LABS: Basophils Percent Auto 0.4 % (0.2-1.2); Eosinophils Absolute Auto 0.1 K/mm3 (0-0.3); Eosinophils Percent Auto 0.5 % (0-4.4); Hematocrit 32.4 % (37.0-47.0); Hemoglobin 9.9 g/dL (12.0-15.0); Immature Granulocyte Absolute 0.09 K/mm3 (0.00-0.031); Immature Granulocyte Percent A 0.8 % (0-0.5); Lymphocytes Absolute Auto 2.46 K/mm3 (0.9-3.2); Lymphocytes Percent Auto 22.2 % (18.3-44.2); Mean Corpuscular HGB Conc 30.6 g/dl (32-36); Mean Corpuscular Hemoglobin 25.4 pg (26-34); Mean Corpuscular Volume 83.3 fl (80-100); Mean Platelet Volume 11.2 fl (7.4-10.4); Monocytes Absolute Auto 0.9 K/mm3 (0.1-0.6); Monocytes Percent Auto 8.1 % (2.6-8.5); Neutrophils Absolute Auto 7.5 K/mm3 (1.3-6.7); Platelet Count Result 274 k/mm3 (150-375); Red Blood Count 3.89 M/mm3 (4.2-5.4); Red Cell Distribution Width 14.3 % (11.5-14.5); White Blood Count 11.1 K/mm3 (4.5-10.0)
[2023-05-19 15:52] LABS: Appearance Urine Cloudy (Clear); Bacteria Urine Rare /hpf; Bilirubin Urine Negative (Negative); Blood Urine Trace (Negative); Color Urine Yellow (Yellow); Creatinine Urine 54.1 mg/dL; Glucose Urine UA Negative (Negative); Ketones Urine Negative (Negative); Leukocyte Esterase Ur Trace LEU/UL (Negative); Nitrate Urine Negative (Negative); Non Pathogenic Casts 0-2; Protein Urine Negative (Negative); RBC Urine 0-2 /hpf (0-2); Specific Grav Ur 1.007 (1.001-1.035); Squamous Epithelial Cell Urine Many /hpf (Few); Total Protein Urine Random 16 mg/dL; Urobilinogen Urine 0.2 mg/dL (<2.0); pH Urine 6.5 (5.0-9.0)
[2023-05-19 15:57] LABS: Alanine Aminotransferase 11 U/L (6-35); Albumin Level 3.7 g/dL (3.5-5.1); Alkaline Phosphatase 170 U/L (38-126); Anion Gap 7 mmol/L (8-16); Aspartate Amino Transferase 20 U/L (14-36); Bilirubin,Total 0.5 mg/dL (0.2-1.3); Blood Urea Nitrogen 4 mg/dL (7-17); Calcium 9.5 mg/dL (8.4-10.2); Carbon Dioxide 18 mmol/L (22-30); Chloride 109 mmol/L (98-107); Estimated Glomerular Filt Rate > 60; Glucose 85 mg/dL (65-110); Potassium 3.6 mmol/L (3.4-5.0); Sodium 134 mmol/L (137-145); Uric Acid 3.8 mg/dL (2.5-7.5)
--- NOTE | 2023-05-19 16:04 | PC.NURSE ---
1530: Patient arrived on unit with complaints of blurry vision and a headache that started an hour ago. Patient did not take anything for her headache today. Patient states she feels like she has swelling in her hands and feet. No edema noted by RN upon assessment. Patient states she does not want to eat or drink anything incase a caesarean section is needed.
[2023-05-19 16:06] LABS: Add Urine Microscopic? YES
--- NOTE | 2023-05-19 16:12 | PC.NURSE ---
1614: RN called Dr. Dietz and reported patient's symptoms of a [place], blurred vision, and edema. RN reported lab results and assessment to OB, orders to keep patient overnight with Q8hr NST and Q1HR blood pressures. OB states patient can eat and drink up until midnight and would not like an IV or steroids at this time.
[2023-05-19] MEDS: CAFFEINE 200 MG TABLET PO (16:29)
[2023-05-19] MEDS: ACETAMINOPHEN 500 MG TABLET 1000 MG PO (16:29)
--- NOTE | 2023-05-19 17:43 | PC.NURSE ---
1730: RN entered room to assess patient's pain. Patient was sitting up in bed on her phone and stated her headache is still an 8 out of 10.
[2023-05-19] MEDS: LACTATED RINGERS 1,000 ML 75 ML IV CONT (19:36)
[2023-05-19] MEDS: MAGNESIUM SULF 4 GM/WATER100ML 4 GM/100 ML BAG IVPB (19:37)
[2023-05-19] MEDS: MAGNESIUM SULF 20GM/WATER500ML 500 ML 50 MG IV CONT (20:14)
[2023-05-19] MEDS: HYDROcodone/acetaminophen (*CRX) 10-325 MG TABLET 1 TAB PO (21:00)
[2023-05-19 21:12] LABS: Basophils Percent Auto 0.2 % (0.2-1.2); Eosinophils Percent Auto 0.4 % (0-4.4); Hematocrit 31.7 % (37.0-47.0); Hemoglobin 9.8 g/dL (12.0-15.0); Immature Granulocyte Absolute 0.07 K/mm3 (0.00-0.031); Immature Granulocyte Percent A 0.6 % (0-0.5); Lymphocytes Absolute Auto 2.48 K/mm3 (0.9-3.2); Lymphocytes Percent Auto 21.8 % (18.3-44.2); Mean Corpuscular HGB Conc 30.9 g/dl (32-36); Mean Corpuscular Hemoglobin 25.5 pg (26-34); Mean Corpuscular Volume 82.3 fl (80-100); Mean Platelet Volume 11.2 fl (7.4-10.4); Monocytes Absolute Auto 0.8 K/mm3 (0.1-0.6); Monocytes Percent Auto 7.2 % (2.6-8.5); Neutrophils Absolute Auto 7.9 K/mm3 (1.3-6.7); Neutrophils Percent Auto 69.8 % (45.5-73.1); Platelet Count Result 274 k/mm3 (150-375); Red Blood Count 3.85 M/mm3 (4.2-5.4); Red Cell Distribution Width 14.2 % (11.5-14.5); White Blood Count 11.4 K/mm3 (4.5-10.0)
[2023-05-19 21:27] LABS: Alanine Aminotransferase 12 U/L (6-35); Albumin Level 3.7 g/dL (3.5-5.1); Alkaline Phosphatase 177 U/L (38-126); Anion Gap 9 mmol/L (8-16); Aspartate Amino Transferase 18 U/L (14-36); Bilirubin,Total 0.5 mg/dL (0.2-1.3); Blood Urea Nitrogen 3 mg/dL (7-17); Calcium 8.9 mg/dL (8.4-10.2); Carbon Dioxide 17 mmol/L (22-30); Chloride 109 mmol/L (98-107); Estimated CRCL calculation 157 ml/min; Estimated Glomerular Filt Rate > 60; Glucose 104 mg/dL (65-110); Potassium 3.1 mmol/L (3.4-5.0); Sodium 135 mmol/L (137-145)
[2023-05-20] VITALS (153 sets, daily range): BP systolic 98–146; BP diastolic 43–89; PULSE 79–146; RESP 14–18; TEMP 36.2–38; O2SAT 91–100
[2023-05-20] MEDS: HYDROcodone/acetaminophen (*CRX) 10-325 MG TABLET 1 TAB PO (04:44)
[2023-05-20] MEDS: LACTATED RINGERS 1,000 ML 125 ML IV CONT ×2 (05:45→07:03)
[2023-05-20] MEDS: GENTAMICIN SULFATE INJ 440 MG in DEXTROSE 5% 100 ML 100 MG IVPB (06:15)
[2023-05-20] MEDS: ONDANSETRON INJ 4 MG/2 ML VIAL IV PUSH (06:15)
[2023-05-20] MEDS: MAGNESIUM SULF 20GM/WATER500ML 500 ML 50 MG IV CONT (06:59)
[2023-05-20] MEDS: FAMOTIDINE 20 MG/2 ML VIAL IV PUSH (07:13)
--- NOTE | 2023-05-20 07:21 | PM.IMHP ---
H&P: HPI History of Present Illness Date/Time: 05/20/23 07:21 Chief Complaint: Headache Narrative: this patient is a 22-year-old 2 para 1 1001 at 36 weeks gestation who presented with headache and elevated blood pressure. Her labs confirmed severe preeclampsia. she has a history of previous delivery. We agreed to proceed with delivery. She understands the procedure. She was informed of risks. She understands injuries may occur that resulted in hospitalization, more surgery, and severe illness. She understands risk of hemorrhage and infection. Review of Systems Review of Systems: All systems reviewed & are unremarkable except as noted in HPI and below Constitutional: Constitutional: Denies chills, Denies fatigue, Denies fever(s) and Denies weakness Eyes: Eyes: Denies blurry vision, Denies change in vision, Denies loss of peripheral vision, Denies loss of vision, Denies other visual disturbances and Denies eye pain ENT: Denies vertigo, Denies dizziness, Denies hearing loss, Denies mouth pain, Denies nasal obstruction, Denies neck mass and Denies neck pain Cardiovascular: Cardiovascular: Denies chest pain, Denies diaphoresis, Denies syncope, Denies leg edema and Denies dyspnea Respiratory: Respiratory: Denies chest congestion, Denies cough, Denies hemoptysis, Denies dyspnea and Denies wheezing Gastrointestinal: Gastrointestinal: Denies abdominal pain, Denies constipation, Denies diarrhea, Denies nausea and Denies vomiting Genitourinary: Genitourinary: Denies hematuria, Denies change in libido, Denies nocturia, Denies genital lesions, Denies flank pain and Denies urinary urgency Musculoskeletal: Musculoskeletal: Denies abnormal gait, Denies back pain, Denies myalgias, Denies arthralgias, Denies joint swelling, Denies muscle weakness and Denies neck pain Integumentary/Breasts: Skin/Breast: Denies swelling, Denies breast pain, Denies breast mass, Denies dry skin, Denies nipple discharge, Denies unusual bruising and Denies jaundice Neurologic: Denies Neuro-related abnormal movements, Denies Abnormal speech present, Denies abnormal gait, Denies behavioral changes, Denies confusion, Denies vertigo, Denies dizziness, Denies syncope, Denies loss of vision, Denies memory loss, Denies convulsions and Denies weakness Psychiatric: Psychiatric: Denies abnormal sleep pattern, Denies behavioral changes, Denies change in libido, Denies confusion, Denies depression, Denies anhedonia and Denies memory loss Endocrine: Endocrine: Reports no additional endocrine complaints, Denies change in libido and Denies fatigue Hematologic/Lymphatic: Hematologic/Lymphatic: Reports no additional hematologic/lymphatic complaints Allergic/Immunologic: Allergic/Immunologic: Reports no additional allergic/immunologic complaints and Denies wheezing PMFSH Past Medical History Medical History (Updated 05/20/23 @ 07:24 by Efren Dietz MD) Anxiety Asthma Chiari malformation Depression Nausea and vomiting Overweight (BMI 25.0-29.9) Surgical History Surgical History H/O craniotomy H/O laparoscopy Hx of cholecystectomy Family History Family History (Updated 05/17/23 @ 13:47 by Jacqueline Goodwin RN) Father High cholesterol Hypertension Mother Gilbert syndrome High cholesterol Migraines Kidney stones Endometriosis Hypertension Mitral valve prolapse Cerebrovascular accident Cholelithiases Sibling Migraines Asthma Grandparent Pancreatic cancer Ovarian cancer Lung cancer Hypertension Kidney disease Grandparent No problems noted. Grandparent Cerebrovascular accident Social History Social History Smoking status: Never smoker Second hand tobacco smoke exposure: No Alcohol intake: current Alcohol use details: 1 PER MONTH Substance use: never Do You Feel Safe in your Home?:
--- NOTE | 2023-05-20 07:26 | WPDHPUPDATE1 ---
History and Physical Update Update Date/Time: 05/20/23 07:26 History and Physical has been reviewed, including an updated exam of the patient. There are NO changes in the patient's condition. Risks, benefits, and alternatives have been discussed and questions answered. Patient agrees to proceed with procedure.
[2023-05-20] MEDS: CLINDAMYCIN 900 MG/D5W 50 ML 900 MG/50 ML PIGGYBACK 50 MG IVPB (07:34)
--- NOTE | 2023-05-20 07:48 | WPDANESEPPF ---
Anes - Initial Pre Proc Eval Procedure: Operation Date: 05/20/23 07:30 Proposed Procedures p Section - Efren Dietz MD Date/Time: 05/20/23 07:48 Surgeon: Efren Dietz MD Pre Op Diagnosis: [facility] Patient Data Age: 22 Gender: F Height: 1.63 m Weight: 88 kg Last Vital Signs Temp 36.2 C L 05/20/23 04:06 Pulse 96 05/20/23 06:01 Resp 16 05/20/23 04:06 BP 122/77 05/20/23 06:01 Pulse Ox 100 05/20/23 07:15 O2 Del Method Room Air 05/19/23 20:21 Allergies Allergy/AdvReac Type Severity Reaction Status Date / Time amoxicillin Allergy Severe Hives / Verified 05/17/23 13:44 Red Face Penicillins Allergy Severe Hives / Verified 05/17/23 13:44 Red Face Influenza Virus Vaccines Allergy Intermediate Egg Allergy Verified 05/17/23 13:44 sulfamethoxazole Allergy Intermediate THROAT Verified 05/17/23 13:44 SWELLING trimethoprim Allergy Intermediate THROAT Verified 05/17/23 13:44 SWELLING surgical glue Allergy Intermediate Hives Uncoded 05/17/23 13:44 Home Medications Medication Instructions Recorded Confirmed Type Usama PNV 1 tab-cap PO DAILY 90 days 04/04/23 05/17/23 Rx metoclopramide HCl 10 mg tablet 10 mg PO Q6H PRN Nausea And 04/04/23 05/20/23 Rx (Reglan) Vomiting #30 tabs Laboratory Tests 05/19/23 05/19/23 15:32 20:57 WBC 11.1 H K/mm3 11.4 H K/mm3 (4.5-10.0) (4.5-10.0) RBC 3.89 L M/mm3 3.85 L M/mm3 (4.2-5.4) (4.2-5.4) Hgb 9.9 L g/dL 9.8 L g/dL (12.0-15.0) (12.0-15.0) Hct 32.4 L % 31.7 L % (37.0-47.0) (37.0-47.0) MCV 83.3 fl 82.3 fl (80-100) (80-100) MCH 25.4 L pg 25.5 L pg (26-34) (26-34) MCHC 30.6 L g/dl 30.9 L g/dl (32-36) (32-36) RDW 14.3 % 14.2 % (11.5-14.5) (11.5-14.5) Plt Count 274 k/mm3 274 k/mm3 (150-375) (150-375) MPV 11.2 H fl 11.2 H fl (7.4-10.4) (7.4-10.4) Immature Gran % (Auto) 0.8 H % 0.6 H % (0-0.5) (0-0.5) Neut % (Auto) 68.0 % 69.8 % (45.5-73.1) (45.5-73.1) Lymph % (Auto) 22.2 % 21.8 % (18.3-44.2) (18.3-44.2) [place] % (Auto) 8.1 % 7.2 % (2.6-8.5) (2.6-8.5) Eos % (Auto) 0.5 % 0.4 % (0-4.4) (0-4.4) Baso % (Auto) 0.4 % 0.2 % (0.2-1.2) (0.2-1.2) Lymph # (Auto) 2.46 K/mm3 2.48 K/mm3 (0.9-3.2) (0.9-3.2) [place] # (Auto) 0.9 H K/mm3 0.8 H K/mm3 (0.1-0.6) (0.1-0.6) Eos # (Auto) 0.1 K/mm3 0.0 K/mm3 (0-0.3) (0-0.3) Baso # (Auto) 0.0 K/mm3 0.0 K/mm3 (0.0-0.1) (0.0-0.1) Abs Immat Gran (auto) 0.09 H K/mm3 0.07 H K/mm3 (0.00-0.031) (0.00-0.031) Absolute Neuts (auto) 7.5 H K/mm3 7.9 H K/mm3 (1.3-6.7) (1.3-6.7) Absolute Nucleated RBC 0.0 K/mm3 0.0 K/mm3 (0.0-0.012) (0.0-0.012) Nucleated RBC % 0.0 % 0.0 % (0.0-0.2) (0.0-0.2) Sodium 134 L mmol/L 135 L mmol/L (137-145) (137-145) Potassium 3.6 mmol/L 3.1 L mmol/L (3.4-5.0) (3.4-5.0) Chloride 109 H mmol/L 109 H mmol/L (98-107) (98-107) Carbon Dioxide 18 L mmol/L 17 L mmol/L (22-30) (22-30) Anion Gap 7 L mmol/L 9 mmol/L (8-16) (8-16) BUN 4 L mg/dL 3 L mg/dL (7-17) (7-17) Creatinine 0.50 L mg/dL 0.50 L mg/dL (0.7-1.0) (0.7-1.0) Estim Creat Clear Calc Not Reportable 157 ml/min Estimated GFR > 60 > 60 (59 - ) (59 - ) Glucose 85 mg/dL 104 mg/dL (65-110) (65-110) Uric Acid 3.8 mg/dL (2.5-7.5) Calcium 9.5 mg/dL 8.9 mg/dL (8.4-10.2) (8.4-10.2) Total Bilirubin 0.5 mg/dL 0.5 mg/dL (0.2-1.3) (0.2-1.3) AST 20 U/L 18 U/L (14-36) (14-36) ALT 11 U/L 12 U/L (6-35) (6-35) Alkaline Phosphatase 170 H U/L 177 H U/L (38-126) (38-126) Total Protein 7.0 g/dL 6.0 L g/dL (6.3-8.2) (6.3-8.2) Albumin 3.7 g/dL 3.7 g/dL (3.5-5.1) (3.5-5.1) Urine Color Yellow (Yellow) Urine Appearance Cloudy H (Clear) Urine pH 6.5 (5.0-9.0) Ur Specific [place] 1.007
--- NOTE | 2023-05-20 08:44 | W.PM.OBCSD ---
OB - Delivery Note Procedure Delivery date: 05/20/23 Pre-op diagnosis: Preeclampsia w severe features and Previous Delivery Post-op Diagnosis: Same Procedure Performed: Repeat and Tubal Ligation Surgeon: Efren Dietz MD Anesthesia type: Spinal Description of Procedure/Findings: The patient was taken the operating room.? She was prepped and draped in dorsal supine position with a leftward tilt.? This was done after spinal anesthetic was applied.? A low-transverse skin incision was made and carried down till of the fascia with the knife.? The fascial incision was made with the knife.? The fascial incision was extended laterally with Ramsay scissors.? The fascia was tented upward superiorly and inferiorly the rectus muscles were dissected off bluntly.? The rectus muscles were the midline.? The preperitoneal fat and peritoneum were dissected open bluntly at the superior aspect of the rectus muscles.? The peritoneal incision was extended superior and inferior with good position of bladder.? The uterine incision was made with a scalpel down to the level of the amniotic cavity.? The amniotic cavity was entered bluntly.? The was delivered.? The cord was clamped and cut and the infant was handed off to waiting pediatric staff.? Cord bloods were obtained.? The placenta was removed manually.? The uterus was exteriorized.? The uterus was cleared of all clots, debris and membranes.? The uterus was closed in 0 Vicryl running lock fashion.? imbricating layer of 0 Vicryl was placed also. Each fallopian tube was grasped and raised with a Paola.? With from the underlying venous structures.? The mesosalpinx between the tube and the rest the adnexa was cauterized and transected with LigaSure cautery.? It was performed from the distal tube near the ovary in a stepwise fashion towards the cornua.? The tube at the cornua was cauterized transected with LigaSure cautery.? This was performed in a bilateral fashion. The uterus was returned to the abdomen.? The gutters were cleared of all clots and debris.? The fascia was closed with 0 Vicryl running fashion.? The subcutaneous tissue was irrigated pinpoint bleeders were cauterized.? The skin was closed with subcuticular absorbable earnest.? The skin incision line was covered with glue.? The patient tolerated the procedure well.? She has taken recovery room in stable condition.? Sponge lap and needle counts were correct x2.? Estimated Blood Loss: 950 Urine Output: 225 [place] Baby Weeks of gestation at delivery: 36 Narrative: Severe preeclampsia
--- NOTE | 2023-05-20 09:27 | SUR.OPER ---
see PACU charting for vital signs during PBRC administration
[2023-05-20] MEDS: LIDOCAINE 5% PATCH 1 PATCH TRANSDERM (09:35)
[2023-05-20] MEDS: MORPHINE SULFATE INJ (*CRX) 10 MG/ML AMP 2 MG IV PUSH ×4 (09:44→10:12)
[2023-05-20] MEDS: OXYTOCIN 30 UNITS/NS 500 ML 30 UNITS/500 ML BAG 125 UNITS IV CONT (10:18)
--- NOTE | 2023-05-20 12:21 | PM.OBPNVD ---
OB - PN: Subj Subjective Date/time seen: 05/20/23 12:21 called for hemorrhage. Bimanual exam revealed a uterus with many large clots and many large clots in the vagina. They were evacuated. Attempted to place a Marta and Bakri. Both failed. She is only had C-sections. The position in the station of the uterus made the insertion difficult. Patient was in lot of pain. Had to abandon the knees. After evacuation of the clots there was no bleeding. Decided to wait and observe. Total blood loss around 2 L, 1st in a blood is being administered. Second unit is ready. OB - PN: Obj Data Labs 05/19/23 20:57 05/19/23 20:57 Labs: Laboratory Results - last 24 hr 05/19/23 05/19/23 15:32 20:57 WBC 11.1 H 11.4 H RBC 3.89 L 3.85 L Hgb 9.9 L 9.8 L Hct 32.4 L 31.7 L MCV 83.3 82.3 MCH 25.4 L 25.5 L MCHC 30.6 L 30.9 L RDW 14.3 14.2 Plt Count 274 274 MPV 11.2 H 11.2 H Immature Gran % (Auto) 0.8 H 0.6 H Neut % (Auto) 68.0 69.8 Lymph % (Auto) 22.2 21.8 [place] % (Auto) 8.1 7.2 Eos % (Auto) 0.5 0.4 Baso % (Auto) 0.4 0.2 Lymph # (Auto) 2.46 2.48 [place] # (Auto) 0.9 H 0.8 H Eos # (Auto) 0.1 0.0 Baso # (Auto) 0.0 0.0 Abs Immat Gran (auto) 0.09 H 0.07 H Absolute Neuts (auto) 7.5 H 7.9 H Absolute Nucleated RBC 0.0 0.0 Nucleated RBC % 0.0 0.0 Sodium 134 L 135 L Potassium 3.6 3.1 L Chloride 109 H 109 H Carbon Dioxide 18 L 17 L Anion Gap 7 L 9 BUN 4 L 3 L Creatinine 0.50 L 0.50 L Estim Creat Clear Calc Not Reportable 157 Estimated GFR > 60 > 60 Glucose 85 104 Uric Acid 3.8 Calcium 9.5 8.9 Total Bilirubin 0.5 0.5 AST 20 18 ALT 11 12 Alkaline Phosphatase 170 H 177 H Total Protein 7.0 6.0 L Albumin 3.7 3.7 Urine Color Yellow Urine Appearance Cloudy H Urine pH 6.5 Ur Specific [place] 1.007 Urine Protein Negative Urine Glucose (UA) Negative Urine Ketones Negative Ur Blood (Man) Trace Urine Nitrate Negative Urine Bilirubin Negative Urine Urobilinogen 0.2 Leukocyte Esterase Rfl Trace H Urine RBC 0-2 Urine WBC 6-10 H Ur Squamous Epith Cells Many H Urine Bacteria Rare Urine Casts 0-2 U Random Total Protein 16 Urine Creatinine 54.1 Protein/Creat Ratio 2 0.30 H Blood Type A Positive Antibody Screen Negative Crossmatch See Detail OB - PN A/P Time Spent With Patient Time: Total time spent is greater than 50% in coordination of care (as documented) at patient's floor/unit and/or counseling patient:
[2023-05-20] MEDS: LACTATED RINGERS 1,000 ML 999 ML IV CONT (12:26)
[2023-05-20] MEDS: DEXTROSE 5%/0.45% SOD CHL 1,000 ML 125 ML IV CONT (13:00)
[2023-05-20 14:04] LABS: Rapid Plasma Reagin Non-Reactive (NonReactive)
--- NOTE | 2023-05-20 14:58 | PC.NURSE ---
1126 Patient transferred to post room #290 via stretcher. Support person present. Labor RNs @ bedside with this RN getting patient settled in room. 1135 RNs checked the patient's ankur pad and chux pad, both were moderately saturated, Kian Mcintosh did fundal check, pt's fundus was at the umbilicus and boggy at first but firmed up with fundal massage, bleeding trickling, small stringy clot expressed. CHRISTIANO requested per RN. 1138 J Luis called and notified of post bleeding and that CHRISTIANO is requested. 1143 Dr. Dietz here @ bedside, CHRISTIANO attempt. Per Dr. Dietz, turn Magnesium IV fluids off and run her IV Pitocin @ 999mls/hr., pt having more clots expressed by Dr. Dietz. 1146 CHRISTIANO attempt failed, pt requesting pain medication, order received for 100 mcg of Fentanyl IV push x1 1151 100mcg of Fentanyl given IV push 1152 Dr. Dietz requesting Manuel Balloon to be placed [address] failed[address] Dr[address] Dietz stayed @ bedside, bleeding watched, no additional seen. RN's to clean up pt and change chux and ankur pads, will monitor. 1210 Fundal check done, firm @ umbilicus, scant bleeding seen. 1220 Fundal check done, firm @ umbilicus, scant bleeding seen. 1225 Dr. Dietz present orders received, see orders, RN will add CBC to be done 6 hours after 2nd unit of blood. 1240 Fundal check done, firm @ umbilicus, scant bleeding seen. 1257 2nd unit of blood started, vitals taken, see charting. 1300 Fundal check done, firm @ umbilicus, scant bleeding seen. See charting for the rest of the fundal checks. 1325 Dr. Dietz called, pt requesting to have clear fluids, ok per Dr. Dietz. RN also asked if ok to give pt the standing Toradol order, ok per Dr. Dietz. RN will continue to monitor.
[2023-05-20] MEDS: miSOPROStol 200 MCG TABLET 1000 MCG RECTAL (15:18)
[2023-05-20] MEDS: IBUPROFEN 600 MG TABLET PO ×2 (15:52→22:33)
[2023-05-20] MEDS: ACETAMINOPHEN 325 MG TABLET 650 MG PO ×2 (15:52→22:33)
[2023-05-20] MEDS: SIMETHICONE 80 MG TAB.CHEW PO (15:52)
--- NOTE | 2023-05-20 16:51 | PC.NURSE ---
1605 Patient's right nipple had some bleeding when she used the hand pump and the 21mm flange, pt hand expressed and no bleeding seen. Both nipples are erect but look possibly tethered or slightly inverted. Pt is going to get her own 19mm flange to try as per the pt the 21mm pulled in too much tissue. This RN measured her nipple to size the flange and both were 21mm. Pt is going to hand express at this time.
[2023-05-20 21:46] LABS: Hematocrit 30.4 % (37.0-47.0); Hemoglobin 9.4 g/dL (12.0-15.0); Mean Corpuscular HGB Conc 30.9 g/dl (32-36); Mean Corpuscular Hemoglobin 26.5 pg (26-34); Mean Corpuscular Volume 85.6 fl (80-100); Mean Platelet Volume 11.6 fl (7.4-10.4); Platelet Count Result 230 k/mm3 (150-375); Red Blood Count 3.55 M/mm3 (4.2-5.4); Red Cell Distribution Width 14.8 % (11.5-14.5); White Blood Count 15.9 K/mm3 (4.5-10.0)
[2023-05-20] MEDS: KCL 20 MEQ/D5/0.45% SOD CHL 1,000 ML 125 ML IV CONT (22:17)
[2023-05-20] MEDS: HYDROcodone/acetaminophen (*CRX) 5-325 MG TABLET 1 TAB PO (22:32)
[2023-05-21 04:10] VITALS: BP 126/86; PULSE 78; RESP 16; TEMP 36.2; O2SAT 99
[2023-05-21] MEDS: IBUPROFEN 600 MG TABLET PO ×3 (04:54→18:17)
[2023-05-21] MEDS: ACETAMINOPHEN 325 MG TABLET 650 MG PO ×2 (04:54→10:46)
[2023-05-21] MEDS: HYDROcodone/acetaminophen (*CRX) 5-325 MG TABLET 1 TAB PO (04:54)
[2023-05-21 05:17] LABS: Basophils Percent Auto 0.3 % (0.2-1.2); Eosinophils Absolute Auto 0.1 K/mm3 (0-0.3); Hematocrit 28.9 % (37.0-47.0); Hemoglobin 8.9 g/dL (12.0-15.0); Immature Granulocyte Absolute 0.08 K/mm3 (0.00-0.031); Immature Granulocyte Percent A 0.6 % (0-0.5); Lymphocytes Absolute Auto 2.37 K/mm3 (0.9-3.2); Lymphocytes Percent Auto 18.8 % (18.3-44.2); Mean Corpuscular HGB Conc 30.8 g/dl (32-36); Mean Corpuscular Hemoglobin 26.5 pg (26-34); Mean Platelet Volume 11.2 fl (7.4-10.4); Monocytes Absolute Auto 1.2 K/mm3 (0.1-0.6); Monocytes Percent Auto 9.2 % (2.6-8.5); Neutrophils Absolute Auto 8.8 K/mm3 (1.3-6.7); Neutrophils Percent Auto 70.1 % (45.5-73.1); Platelet Count Result 209 k/mm3 (150-375); Red Blood Count 3.36 M/mm3 (4.2-5.4); Red Cell Distribution Width 14.9 % (11.5-14.5); White Blood Count 12.6 K/mm3 (4.5-10.0)
--- NOTE | 2023-05-21 07:48 | P.PNAN_ITS ---
Anes-Prog Note L&D Date/Time: 05/21/23 07:48 Comfortable throughout: section Neuraxial method: spinal Epidural/Spinal procedure site: clean & non-tender Neuro status: Neuro function grossly intact. Cardiovascular status: normal Respiratory status: normal Airway patency: baseline Mental status: baseline Post-Op hydration status: normal Vital Signs: Last Vital Signs Temp 36.2 C L 05/21/23 04:10 Pulse 78 05/21/23 04:10 Resp 16 05/21/23 04:10 BP 126/86 05/21/23 04:10 Pulse Ox 99 05/21/23 04:10 O2 Del Method Room Air 05/20/23 10:30 Pain score (VAS): 3 I/O: Intake & Output 05/20/23 05/20/23 05/21/23 15:59 23:59 07:59 Intake Total 2295 440 1476 Output Total [phone] [facility] [phone] Post-procedural complaints: none Patient feedback: Patient satisfied with anesthetic care.
--- NOTE | 2023-05-21 07:49 | WPDANLDNPN2 ---
Anes-Prog Note L&D-Neuraxial Date/Time: 05/21/23 07:49 Neuraxial medications: intrathecal PF morphine Opiod-related complaints: none Patient feedback: Patient satisfied with post-operative pain management.
[2023-05-21 07:50] VITALS: BP 125/77; PULSE 89; RESP 16; TEMP 36.7; O2SAT 97
--- NOTE | 2023-05-21 09:32 | PM.OBPNVD ---
OB - PN: Subj Subjective Date/time seen: 05/21/23 09:32 Patient comments: no complaints, pain well controlled, tolerating diet and flatus present OB - PN: Obj Data Labs 05/21/23 05:00 05/19/23 20:57 Labs: Laboratory Results - last 24 hr 05/19/23 05/20/23 05/21/23 20:57 21:13 05:00 WBC 15.9 H 12.6 H RBC 3.55 L 3.36 L Hgb 9.4 L 8.9 L Hct 30.4 L 28.9 L MCV 85.6 86.0 MCH 26.5 26.5 MCHC 30.9 L 30.8 L RDW 14.8 H 14.9 H Plt Count 230 209 MPV 11.6 H 11.2 H Immature Gran % (Auto) 0.6 H Neut % (Auto) 70.1 Lymph % (Auto) 18.8 [place] % (Auto) 9.2 H Eos % (Auto) 1.0 Baso % (Auto) 0.3 Lymph # (Auto) 2.37 [place] # (Auto) 1.2 H Eos # (Auto) 0.1 Baso # (Auto) 0.0 Abs Immat Gran (auto) 0.08 H Absolute Neuts (auto) 8.8 H Absolute Nucleated RBC 0.0 Nucleated RBC % 0.0 RPR Non-reactive Blood Type A Positive Antibody Screen Negative Crossmatch See Detail OB - PN A/P Assessment and Plan (1) Pre-eclampsia affecting childbirth: Code(s): O14.94 - Unspecified pre-eclampsia, complicating childbirth Status: Acute Plan stable, resolving, headache resolved Plan day: 1 Comments: Post Op LTCS - no problems, routine recovery Time Spent With Patient Time: Total time spent is greater than 50% in coordination of care (as documented) at patient's floor/unit and/or counseling patient: Exam Const: General: cooperative, healthy appearing, comfortable and no acute distress Resp: Auscultation: no crackles, no rales, no rhonchi and no wheezes Cardio: Rhythm: regular rhythm Heart sounds: no click and no murmurs GI: Inspection: non-distended Auscultation: normal bowel sounds Extrem: General: normal to inspection, no pedal edema and no calf tenderness
[2023-05-21] MEDS: HYDROcodone/acetaminophen (*CRX) 10-325 MG TABLET 1 TAB PO ×3 (10:45→18:16)
[2023-05-21] MEDS: SIMETHICONE 80 MG TAB.CHEW PO ×2 (10:45→16:35)
[2023-05-21] MEDS: DOCUSATE SODIUM 100 MG CAPSULE PO ×2 (10:45→16:34)
[2023-05-21] MEDS: POLYSACCHARIDE IRON COMPLEX 150 MG CAPSULE PO ×2 (10:45→16:35)
[2023-05-21] MEDS: MULTIVIT/MIN/PREN/FOL AC/IRON TABLET 1 TAB PO (10:45)
--- NOTE | 2023-05-21 11:00 | PC.NURSE ---
Patient left to go on a 6 hour pass to [facility] to see baby. Pt's mother is driving her there.
--- NOTE | 2023-05-21 13:32 | PC.NURSE ---
[id number] Re-introductions were made to assess for pumping/milk expression needs. Mother denies any pain, questions or assistance. Right nipple is inverted and doesn't bonifacio. Mother states there was initial bleeding with the first pump, then it stopped. Parents share that mother did not make a full milk supply after the first that was followed with a PPH. Encouraged protecting her milk supply with a PPH less than the first time, giving infant what she does produce, resources to call as an outpatient for pain, concerns or questions. FOB calls [facility] and puts the call on speaker phone and consult was ended.
--- NOTE | 2023-05-21 15:07 | PC.NURSE ---
Patient returned from [facility] to [facility] per wheelchair.
[2023-05-21 15:10] VITALS: BP 138/91; PULSE 84; RESP 18; TEMP 36.7; O2SAT 98
[2023-05-21 19:50] VITALS: BP 127/86; PULSE 88; RESP 18; TEMP 37; O2SAT 98
[2023-05-22 00:40] VITALS: BP 119/72
[2023-05-22] MEDS: ACETAMINOPHEN 325 MG TABLET 650 MG PO (00:57)
[2023-05-22] MEDS: IBUPROFEN 600 MG TABLET PO ×2 (00:57→07:05)
[2023-05-22 04:32] VITALS: BP 120/69
[2023-05-22] MEDS: HYDROcodone/acetaminophen (*CRX) 10-325 MG TABLET 1 TAB PO (07:05)
--- NOTE | 2023-05-22 07:27 | PM.OBPNVD ---
OB - PN: Subj Subjective Date/time seen: 05/22/23 07:27 Patient comments: no complaints, pain well controlled, incisional pain, tolerating diet and flatus present OB - PN: Obj Data Labs 05/21/23 05:00 05/19/23 20:57 OB - PN A/P Plan day: 2 Plan: routine care Comments: POD#2 LTCS - no problems, Preeclampsia resolving, to discharge Time Spent With Patient Time: Total time spent is greater than 50% in coordination of care (as documented) at patient's floor/unit and/or counseling patient: Exam Const: General: comfortable, no acute distress and alert Resp: Effort & Inspection: normal respiratory effort Auscultation: no crackles, no rales and no rhonchi Cardio: Rate: regular rate Heart sounds: no click, no murmurs and no rubs GI: Inspection: non-distended Auscultation: normal bowel sounds Other: Incision - CDI Extrem: General: normal to inspection, no pedal edema and no calf tenderness
--- NOTE | 2023-05-22 07:28 | PM.OBDSVD ---
DS: Admitting Diagnosis Discharge Date May 22, 2023 Admitting Diagnosis severe preeclampsia DS: Discharge Diagnosis Discharge Diagnosis (1) Pre-eclampsia affecting childbirth: Code(s): O14.94 - Unspecified pre-eclampsia, complicating childbirth Status: Acute (2) delivery delivered: Code(s): O82 - Encounter for delivery without indication Status: Acute OB - DS: Summary OB Procedures : None and PIH Mgmt OB Procedures Intrapartum: OB Procedures: : None Peripartum Data Procedures: Procedures Operation Date: 05/20/23 07:30 Actual Procedure Side Surgeon p Section Not Applicable Efren Dietz MD Time Spent with Patient Time attestation: Total time spent providing and/or coordinating discharge services: DS: Data Data Completed and Pending Completed studies during hospitalization: Pending at discharge 05/20/23 11:16 Surgical [PTH] Routine Discharge Plan Discharge Discharging Clinician: Efren Dietz Patient Disposition: Home, Self-Care Activity: pelvic rest Diet: regular Patient Instructions: Antibiotic Form Stand Alone Forms: General Discharge Information Follow-up/Referrals: Efren Dietz MD [Physician] - Discharge Medications: New oxycodone-acetaminophen 5-325 mg tablet 1 tablet PO Q4H PRN (Reason: pain) Qty: 25 0RF labetalol 200 mg tablet 200 mg PO Q12H Qty: 60 3RF Continued metoclopramide HCl [Reglan] 10 mg Tablet 10 mg PO Q6H PRN (Reason: Nausea And Vomiting) Qty: 30 0RF Usama PNV 1 tab-cap PO DAILY 90 Days 0RF Date of admission: 05/19/23 19:08 Primary Care Provider: PHYSICIAN,WELLHEAD PUMPER Admitting Provider: Efren Dietz Attending physician on admission: Efren Dietz Condition: Stable
[2023-05-22] MEDS: TETANUS,DIPHTHERIA,AC PERTUSSIS ADULT (0.5 ML) BOOSTRIX IM (08:26)
[2023-05-22] MEDS: POLYSACCHARIDE IRON COMPLEX 150 MG CAPSULE PO (08:28)
[2023-05-22] MEDS: SIMETHICONE 80 MG TAB.CHEW PO (08:28)
[2023-05-22] MEDS: DOCUSATE SODIUM 100 MG CAPSULE PO (08:28)
[2023-05-22] MEDS: MULTIVIT/MIN/PREN/FOL AC/IRON TABLET 1 TAB PO (08:30)
[2023-05-22 08:35] VITALS: BP 126/87; PULSE 89; RESP 18; TEMP 37.2; O2SAT 97
[2023-05-24 10:57] VITALS: BP 126/84; PULSE 100; RESP 18; TEMP 37.1; O2SAT 100
== END 2023-05-22 09:30 | disposition home or self-care (01) | DRG 784 ==
LOC: ANHOBOP 16:18 → ANHOBPP 16:18 → ANHOB2 05-20 11:30
PROVIDERS: Admitting Provider Obstetrics & Gynecology; Visit Provider Obstetrics & Gynecology
PROC: 10D00Z1 Extraction of Products of Conception, Low, Open Approach (ICD-10-PCS; CPT 59514; principal; 2023-05-20 07:30)
DX: O34.219 Maternal care for unspecified type scar from previous cesarean delivery (principal); O72.1 Other immediate postpartum hemorrhage; O14.14 Severe pre-eclampsia complicating childbirth; O69.81X0 Labor and delivery complicated by cord around neck, without compression, not applicable or unspecified; Z30.2 Encounter for sterilization; Z3A.36 36 weeks gestation of pregnancy; Z37.0 Single live birth; Z90.49 Acquired absence of other specified parts of digestive tract
CPT/HCPCS: 36415; 36430; 59025; 80053; 81001; 82570; 84156; 84550; 85014; 85018; 85025; 85027; 86592; 86850; 86900; 86901; 86923; 87086; 87088; 88302; 90715; A9270; J1165; J1580; J2270; J2274; J2371; J2405; J2590; J3010; J3475; J3480; J7050; J7120; P9016

== ENCOUNTER 2024-02-04 13:15 | Emergency (ER) | payer OTHER, SELFPAY ==
[2024-02-04 13:18] VITALS: BP 137/83; PULSE 91; RESP 18; TEMP 36.4; O2SAT 99
[2024-02-04 14:20] VITALS: BP 120/85; PULSE 92; RESP 16; O2SAT 100
[2024-02-04] MEDS: MECLIZINE HCL 25 MG TABLET PO (14:46)
--- NOTE | 2024-02-04 15:25 | ED.GENADULT ---
HPI - General Adult General Chief complaint: Dizziness Stated complaint: dizziness x2 days, tinnitus Time Seen by Provider: 02/04/24 14:28 History of Present Illness HPI narrative: Patient is a 23-year-old female who presents ER with dizziness. Rotational. Worse with moving head. Associated with nausea. She has had ringing in her right ear. Had a viral infection last week. currently no sinus congestion or cough. No focal weakness or numbness in arm or leg. Has history of Chiari malformation and underwent decompression. Has not needed to follow-up with neurosurgery. Related Data Allergies Allergy/AdvReac Type Severity Reaction Status Date / Time amoxicillin Allergy Severe Hives / Verified 02/04/24 13:17 Red Face Penicillins Allergy Severe Hives / Verified 02/04/24 13:17 Red Face Influenza Virus Vaccines Allergy Intermediate Egg Allergy Verified 02/04/24 13:17 sulfamethoxazole Allergy Intermediate THROAT Verified 02/04/24 13:17 SWELLING trimethoprim Allergy Intermediate THROAT Verified 02/04/24 13:17 SWELLING surgical glue Allergy Intermediate Hives Uncoded 02/04/24 13:17 Review of Systems Constitutional: Constitutional: Reports no additional constitutional complaints ENT: Reports dizziness, Denies nasal congestion and Denies sore throat Comments: Right ear tinnitus Cardiovascular: Cardiovascular: Reports no additional cardiovascular complaints Respiratory: Respiratory: Reports no additional respiratory complaints [facility] Past Medical History Medical History (Updated 02/04/24 @ 15:39 by Manuelito Sterling MD) Anxiety Asthma Chiari malformation decompression surgery Depression Nausea and vomiting Overweight (BMI 25.0-29.9) Pre-eclampsia affecting childbirth Surgical History Surgical History H/O craniotomy H/O laparoscopy Hx of cholecystectomy Family History Family History (Updated 05/17/23 @ 13:47 by Jacqueline Goodwin RN) Father High cholesterol Hypertension Mother Gilbert syndrome High cholesterol Migraines Kidney stones Endometriosis Hypertension Mitral valve prolapse Cerebrovascular accident Cholelithiases Sibling Migraines Asthma Grandparent Pancreatic cancer Ovarian cancer Lung cancer Hypertension Kidney disease Grandparent No problems noted. Grandparent Cerebrovascular accident Social History Social History Smoking status: Never smoker Second hand tobacco smoke exposure: No Alcohol intake: current Alcohol use details: 1 PER MONTH Substance use: never Do You Feel Safe in your Home?: Yes Lack of Transportation: No Lack of Food: Never True Current Housing: I Have Housing Concerned About Future Housing: No Difficulty Paying Gas/Electric Bills: No Difficulty Paying for Meds: No Currently Unemployed: No Education: High School Diploma/GED Difficulty w/ Childcare or Family Care: No Living arrangements: with family Spiritual care concerns: No Exam Narrative: GENERAL: Well-appearing, well-nourished, and in no acute distress. HEAD: Normocephalic, atraumatic. EYES: PERRL and EOMI. ENT: Mucous membranes moist. right TM bulging with mild erythema. normal appearing left TM. CHEST: Clear to auscultation. No respiratory distress. HEART: Regular rate and rhythm. Normal peripheral pulses. EXTREMITIES: Normal range of motion. No edema. NEURO: Alert and oriented x3. PSYCH: Normal mood and affect. Course Course Emergency Course: Meclizine for dizziness. Your manipulation resulted in a pop and decreased pain. Will treat for otitis media though this could also just be barotitis from a viral syndrome. Vital Signs Vital signs: Vital Signs Temperature 97.6 F 02/04/24 13:18 Pulse Rate 91 02/04/24 13:18 Respiratory Rate 18 02/04/24 13:18 Blood Pressure 137/83 02/04/24 13:18 Pulse Oximetry 99 02/04/24 13:18 Oxygen Delivery Room Air 02/04/24 13:18 Temperature 97.6 F 02/04/24 13:18 Pulse Rate 91 02/04/24 13:18 Respiratory Rate 18 02/04/24 13:18 Blood Pressure 137/83 02/04/24 13:18 Pulse Oximetry 99 02/04/24 13:18 Oxygen Delivery Room Air 02/04/24 13:18 Medical Decision Making Vital Signs Vital Signs: Vital Signs Temperature 97.6 F 02/04/24 13:18 Pulse Rate 91 02/04/24 13:18 Respiratory Rate 18 02/04/24 13:18 Blood Pressure 137/83 02/04/24 13:18 Pulse Oximetry 99 02/04/24 13:18 Oxygen Delivery Room Air 02/04/24 13:18 Temperature 97.6 F 02/04/24 13:18 Pulse Rate 91 02/04/24 13:18 Respiratory Rate 18 02/04/24 13:18 Blood Pressure 137/83 02/04/24 13:18 Pulse Oximetry 99 02/04/24 13:18 Oxygen Delivery Room Air 02/04/24 13:18 Discharge Plan Discharge Clinical Impression: Otitis media, Vertigo Patient Disposition: Home, Self-Care Condition: Stable Instructions: Antibiotic Form, Vertigo (ED), Ear Infection (ED) Additional Instructions: Return ER if you have fever 100.4? F, you lose consciousness, or you have additional concerns. Prescriptions: New azithromycin 250 mg tablet See Rx Instructions .ROUTE .COMPLEX Qty: 6 0RF Rx Instructions: take 500 mg today (day 1), then 250 mg for 4 days (days 2-5) meclizine 12.5 mg tablet 12.5 mg PO TID PRN (Reason: dizziness) Qty: 14 0RF No Action metoclopramide HCl [Reglan] 10 mg Tablet 10 mg PO Q6H PRN (Reason: Nausea And Vomiting) Qty: 30 0RF PNV 1 tab-cap PO DAILY 90 Days 0RF oxycodone-acetaminophen 5-325 mg tablet 1 tablet PO Q4H PRN (Reason: pain) Qty: 25 0RF labetalol 200 mg tablet 200 mg PO Q12H Qty: 60 3RF Follow-up/Referrals: Good Conley DO [Physician] - 1 Week UNKNOWN,DOCTOR [Primary Care Provider] -
[2024-02-04 16:06] VITALS: BP 113/92; PULSE 88; RESP 18; TEMP 36.9; O2SAT 100
== END 2024-02-04 16:05 | disposition home or self-care (01) ==
PROVIDERS: Emergency Provider Emergency Medicine
DX: R42 Dizziness and giddiness (principal); H66.91 Otitis media, unspecified, right ear; J45.909 Unspecified asthma, uncomplicated; E66.3 Overweight; Z68.25 Body mass index [BMI] 25.0-25.9, adult; Z90.49 Acquired absence of other specified parts of digestive tract
CPT/HCPCS: 99283; A9270

== ENCOUNTER 2024-03-31 08:34 | Emergency (ER) | payer OTHER, SELFPAY ==
--- NOTE | 2024-03-31 08:38 | ED_ITS ---
HPI - Back Pain/Injury General Chief Complaint: Back Pain/Injury Stated Complaint: Back Injury Time Seen by Provider: 03/31/24 08:44 Source: patient and RN notes reviewed Mode of arrival: ambulatory Limitations: no limitations History of Present Illness HPI Narrative: 23-year-old female presents with concern for left posterior rib pain. Reports this morning she was kicked in the back by her 2-year-old. She reports it is painful to cough. She denies any bruising, redness, swelling, open skin. Reports she took Tylenol. MD elicited complaint: back pain Related Data Allergies Allergy/AdvReac Type Severity Reaction Status Date / Time amoxicillin Allergy Severe Hives / Verified 02/04/24 13:17 Red Face Penicillins Allergy Severe Hives / Verified 02/04/24 13:17 Red Face Influenza Virus Vaccines Allergy Intermediate Egg Allergy Verified 02/04/24 13:17 sulfamethoxazole Allergy Intermediate THROAT Verified 02/04/24 13:17 SWELLING trimethoprim Allergy Intermediate THROAT Verified 02/04/24 13:17 SWELLING surgical glue Allergy Intermediate Hives Uncoded 02/04/24 13:17 Review of Systems Review of Systems: CONSTITUTIONAL: Denies malaise, chills, sweats, or fever. CARDIOVASCULAR: Denies chest pain, palpitations, or edema. RESPIRATORY: Denies cough or dyspnea. GASTROINTESTINAL: Denies abdominal pain, nausea, vomiting, diarrhea, loss of bowel function GENITOURINARY: Denies dysuria, hematuria, frequency, loss of bladder function. SKIN: Denies rash or itching. MUSCULOSKELETAL: Reports left midback pain NEUROLOGIC: Denies numbness, weakness, or headache. All systems reviewed & are unremarkable except as noted in HPI and below PMFSH Past Medical History Medical History (Updated 03/31/24 @ 08:51 by Paula Estrada NP) Nausea and vomiting Pre-eclampsia affecting childbirth Overweight (BMI 25.0-29.9) Depression Anxiety Asthma Chiari malformation decompression surgery Surgical History Surgical History H/O laparoscopy H/O craniotomy Hx of cholecystectomy Family History Family History (Updated 05/17/23 @ 13:47 by Jacqueline Goodwin RN) Father High cholesterol Hypertension Mother Gilbert syndrome High cholesterol Migraines Kidney stones Endometriosis Hypertension Mitral valve prolapse Cerebrovascular accident Cholelithiases Sibling Migraines Asthma Grandparent Pancreatic cancer Ovarian cancer Lung cancer Hypertension Kidney disease Grandparent No problems noted. Grandparent Cerebrovascular accident Social History Social History Smoking status: Never smoker Second hand tobacco smoke exposure: No Alcohol intake: current Alcohol use details: 1 PER MONTH Substance use: never Do You Feel Safe in your Home?: Yes Lack of Transportation: No Lack of Food: Never True Current Housing: I Have Housing Concerned About Future Housing: No Difficulty Paying Gas/Electric Bills: No Difficulty Paying for Meds: No Currently Unemployed: No Education: High School Diploma/GED Difficulty w/ Childcare or Family Care: No Living arrangements: with family Spiritual care concerns: No Comments At time of signature, agree with nursing past medical, surgical, social and family history. There is no relevant family history pertinent to the presenting complaint Exam Narrative: GENERAL: Well-appearing, well-nourished, and in no acute distress. HEAD: Normocephalic, atraumatic. EYES: PERRLA and EOMI. NECK: Supple. No lymphadenopathy. CHEST: Clear to auscultation. No respiratory distress. HEART: Regular rate and rhythm. Distal pulses palpable and equal, cap refill <3 seconds ABDOMEN: Soft, nontender, nondistended, normal active bowel sounds, no palpable or pulsatile masses. No CVA tenderness MUSCULOSKELETAL: Normal range of motion and strength in all extremities. Normal sensation in dermatomal distributions with sensitivity to light touch and pain. No midline back tenderness to palpation. No paraspinal tenderness. Left lower posterior rib tenderness Transfers from sitting to standing. SKIN: Warm, dry, no rash. No ecchymosis, erythema, open wounds to back. NEURO: No focal deficits. Alert and oriented x3. Normal gait. PSYCH: Normal mood and affect Course Course Emergency Course: Patient is aware of diagnosis, understands and agrees to treatment plan. Anticipatory guidance given. Patient agrees to follow-up as directed and is aware of reasons to seek care at the emergency department. Portions of this record may have been created with voice recognition software Level of Care: Express Care Visit Vital Signs Vital signs: Reviewed. MDM - Back Pain/Injury MDM Narrative Medical decision making narrative: I evaluated this in the express care. History is obtained from patient who is an independent historian and physical exam was performed.? Available medical records were reviewed. ? Exam findings and relevant testing show no acute concerns or changes; patient is non-toxic appearing and is in no distress. No risk factors or findings concerning for epidural abscess, diskitis, vertebral osteomyelitis, cord compression, cauda equina, vertebral fracture or bone m alignancy, AAA, or pyelonephritis. Patient instructed to consider further imaging and workup through their primary care physician as an outpatient if symptoms persist. ? Differential diagnosis and treatment plan were discussed with the patient. Patient agrees with discussion and after shared medical decision making agrees with plan of care. All questions were answered to the patient's satisfaction. Patient is appropriate for outpatient treatment and follow-up. Critical Care Time Critical Care Time Critical Care Time: No Discharge Plan Discharge Clinical Impression: Pain in rib Patient Disposition: Home, Self-Care Condition: Stable Instructions: Rib Contusion (ED) Additional Instructions: 1) Please follow-up with your primary care doctor in the next 1-2 days. 2) If you have any worsening of symptoms or any other urgent concerns please go to the ER. 3) Please take medications as prescribed and continue taking your home medications as usual. 4) Please read and follow information included in discharge instructions. Patient Language: Filipino Prescriptions: New ibuprofen 600 mg tablet 600 mg PO QID PRN (Reason: pain) Qty: 30 0RF Follow-up/Referrals: PHYSICIAN,PERENNIAL HOUSE MANAGER [Primary Care Provider] - Time of Disposition: 08:52
[2024-03-31 08:42] VITALS: BP 142/73; PULSE 96; RESP 18; TEMP 36.8; O2SAT 99
== END 2024-03-31 08:56 | disposition home or self-care (01) ==
PROVIDERS: Emergency Provider Nurse Practitioner
DX: R07.89 Other chest pain (principal); J45.909 Unspecified asthma, uncomplicated
CPT/HCPCS: 99213; G0463

== ENCOUNTER 2024-07-20 10:17 | Emergency (ER) | payer OTHER, SELFPAY ==
[2024-07-20 10:21] VITALS: BP 133/83; PULSE 90; RESP 18; TEMP 36.6; O2SAT 100
--- OUTSIDE RECORDS SUMMARY | 2024-07-20 11:08 | XMS_ITS | Clinical Summary ---
Author Organization [facility] Address [address] [place] [address] Phone Care Team Providers Care Weigh And Charge Worker Name Role Phone Provider, None Primary Care Provider Unavailabl e Allergies Active Allergy Reactions Criticality Noted Date Comments Influenza Vaccines Hives Medium 04/06/2019 Other-Environmental Allergen (Not Found In Search) Hives High 06/26/2024 Surgical glue Penicillins Anaphylaxis High 04/24/2022 Sulfamethoxazole-Trim ethoprim Other (see Comments) Medium 07/11/2017 Severe dehydration Medications spironolactone (ALDACTONE) 100 MG Tablet Take 100 mg by mouth daily. 5 Active Blisovi FE 04/06 1-20 MG-MCG Tablet Take 1 Tablet by mouth daily. 5 Active metFORMIN (GLUCOPHAGE) 500 MG Tablet Take 500 mg by mouth 2 times daily. 5 Active Albuterol Sulfate 108 (90 Base) MCG/ACT AEROSOL POWDER, BREATH ACTIVATED take 2 Puffs by inhalation as needed for Wheezing or Cough. 1 Active albuterol (PROVENTIL, VENTOLIN) (2.5 MG/3ML) 0.083% Nebulizer Soln take 2.5 mg by inhalation every 4 hours as needed for Wheezing, Shortness of Breath or Cough. 1 Active traMADol (ULTRAM) 50 MG TabletIndicati ons:Flank pain Take 1 Tablet by mouth every 6 hours as needed for Moderate or more severe pain. 12 Tablet 3 06/27/19 25 Discontinu ed(Therapy completed) levoFLOXacin (LEVAQUIN) 500 MG Tablet Take 1 Tablet by mouth daily for 7 days. 7 Tablet 5 06/27/19 25 Discontinu ed(Error) Active Problems No known active problems Encounters Date Type Department Care Team Description 06/26/2024 4:10 PM CDT Ancillary Procedure [facility] - [place] [address] [place] [address] Jael Knox APRN, EMILI Discharge Disposition: Discharged to home or Selfcare 06/26/2024 3:45 PM CDT Urgent Care Visit [facility] [place] [address] [place] [id number] Jael Knox APRN, EMILI Contusion of right foot, initial encounter (Primary Dx); Right foot pain Discharge Disposition: Discharged to home or Selfcare 06/26/2024 Travel from Last 3 Months Immunizations Immunization Administration Dates Next Due DTAP VACCINE 1999,1999,1999 DTAP VACCINE, 5 PERTUSSIS AN TIGENS, VACCINE IM 08/04/2004,09/02/2000 HEP B/HIB Combined Vaccine 1999,1999 Hepatitis A Vaccine,unspecif ied Formulation 06/13/2007,12/05/2006 Hepatitis B Vaccine, Pediatric/adolescent 02/27/2000 Hepatitis B Vaccine,unspecif ied Formulation 1999,1999 Hib Vaccine,unspecified Formulation 1999,0 1999 Hpv, Unspecified Formulation 12/01/2009,07/13/19 10,05/03/2009 Inactivated Polio Vaccine 08/04/2004,,1999,07/27 Influenza Vaccine,unspecifie d Formulation 03/27/2010 MMR Vaccine 04/06/2019,05/31/2000 MMRV 08/04/2004 Meningococcal Vaccine 07/07/2015 Meningococcal Vaccine, Unspe cified Formulation 06/07/2011 Pneumococcal PCV, Unspecifie d Formulation 09/02/2000 Pneumococcal Vaccine Peds - 7 Valent 05/31/2000, 02/27/2000 TDAP Vaccine 05/22/2023,,04/06/2019,06/06 Tuberculin Skin Test; Purifi ed Protein Derivative Solutiol 04/20/2019,04/06/2019 Varicella Vaccine Live 12/05/2006,05/31/2000 Social History Tobacco Use Types Packs/Day Years Used Date Smoking Tobacco: Never Smokeless Tobacco: Never Tobacco Cessation:Counseling Given: Not Answered Alcohol Use Standard Drinks/Week Comments Not Currently 0 (1 standard drink = 0.6 oz pur e alcohol) Sexually Active Control Partners Comments Yes Oral Contraceptive Male Comments No Sex and Gender Information Value Date Recorded Sex Assigned at Not on file Legal Sex Female 7:09 PM CDT Gender Identity Not on file Sexual Orientation Not on file Last Filed Vital Signs Vital Sign Reading Time Taken Comments Blood Pressure 116/90 06/26/2024 3:58 PM CDT Pulse 79 06/26/2024 3:58 PM CDT Temperature 36.7 C (98.1 F) 06/26/2024 3:58 PM CDT Respiratory Rate 16 06/26/2024 3:58 PM CDT Oxygen Saturation 97% 06/26/2024 3:58 PM CDT Inhaled Oxygen Concentration - - Weight 90.7 kg (200 lb) 06/26/2024 3:58 PM CDT Height 160 cm (5' 3 ) 04/24/2022 1:46 AM REVENUE AGENT Body Mass Index 35.43 04/24/2022 1:46 AM REVENUE AGENT Plan of Treatment Health Maintenance Due Date Last Done Comments Hepatitis C Virus (HCV) Screening 1999 Pap Smear 05/28/2020 SARS-COV-2 Immunization ( season) 2023 02/25/2021, 07/07/2020, 06/14/2020 DTaP/Tdap/Td Immunization (10 - Td or Tdap) 05/21/2033 05/22/2023, 09/16/2021, 04/06/2019, Additional history exists Respiratory Syncytial Virus (RSV) Immunization (Adult) (1 - 1-dose 75+ series) 05/28/2074 Hepatitis B Immunization Completed 000, 1999, 1999, Additional history exists Pneumococcal Immunization Combined Aged Out 09/02/2000, 05/31/2000, 02/27/2000 No longer eligible based on patient's age to complete this topic Human Papillomavirus (HPV) Immunization Completed 12/01/2009, 07/12/2009, 05/03/2009 Influenza Immunization Discontinued 03/27/2010 Meningococcal Immunization (ACWY) Completed 07/07/2015, 06/07/2011 TdaP Immunization Discontinued 05/22/2023, , 04/06/2019, Additional history exists Rotavirus Immunization Aged Out No lo nger eligible based on patient's age to complete this topic Procedures Procedure Name Priority Date/Time Associated Diagnosis Comments XR FOOT 3 OR MORE VIEWS RIGHT Stat with Interpretation 06/26/2024 4:14 PM CDT Right foot pain from Last 3 Months Results * XR FOOT 3 OR MORE VIEWS RIGHT (06/26/2024 4:14 PM CDT) Anatomical Region Laterality Modality LOWER EXTREMITY, foot Right Digital Ra diography 06/26/2024 5:14 PM CDT Impressions 06/26/2024 5:16 PM CDT IMPRESSION: No acute osseous abnormality. Narrative 06/26/2024 5:16 PM CDT EXAM DESCRIPTION: XR FOOT 3 OR MORE VIEWS RIGHT REASON FOR STUDY: Drpped a heavy box on the top of her Rt foot 2 hours ago causing pain over metarsals TECHNIQUE: 3 radiographic view(s) of the right foot . COMPARISON: None FINDINGS: BONES/JOINTS: There is no acute fracture, malalignment or osseous abnormality. The joint spaces are normal. SOFT TISSUES: Within normal limits. THIS IS AN ELECTRONICALLY VERIFIED FINAL REPORT 06/26/2024 5:14 PM - Electronically signed by David Ortiz M.D. KH: YUKI Report ID: [id number] Reading Location: [id number] Procedure Note David Ortiz MD - 06/26/2024 EXAM DESCRIPTION: XR FOOT 3 OR MORE VIEWS RIGHT REASON FOR STUDY: Drpped a heavy box on the top of her Rt foot 2 hours ago causing pain over metarsals TECHNIQUE: 3 radiographic view(s) of the right foot . COMPARISON: None FINDINGS: BONES/JOINTS: There is no acute fracture, malalignment or osseous abnormality. The joint spaces are normal. SOFT TISSUES: Within normal limits. THIS IS AN ELECTRONICALLY VERIFIED FINAL REPORT 06/26/2024 5:14 PM - Electronically signed by David Ortiz M.D. KH: [email or web address] Report ID: [id number] Reading Location: [id number] IMPRESSION: No acute osseous abnormality. Jael Knox CUSTOMER ACQUISITION SPECIALIST, MATERIAL CONTROL SPECIALIST IMG DIAGNOSTIC ORD ERABLES Final Result from Last 3 Months Insurance MEDICAID [place] [facility] Care Teams Weigh And Charge Worker Relationship Specialty Start Date End Date Provider, None [place] PCP - General 06/26/24
--- OUTSIDE RECORDS SUMMARY | 2024-07-20 11:08 | XMS_ITS | Clinical Summary ---
Author Organization [facility] Address [address] [place] [address] Care Team Providers Care Quality Control Engineer Name Role Phone Ivan Brand MD Primary Care Provider [phone] Source Comments [facility],non-owned Affiliates and Associated Physician Practices is amultiple site organization consisting of ambulatory clinics and hospital sitesin [place], [place], [place] and [place]. This disclosure is being madepursuant to the Care Everywhere program and may not contain all information available regarding this patient. Last updated 17.[facility] Allergies Active Allergy Reactions Criticality Noted Date Comments Amoxicillin Urticaria Medium 07/11/2017 Influenza Vaccines Urticaria Medium 04/06/2019 Penicillins Urticaria,Rash,Swel ling High 05/09/2016 Sulfamethoxazole W-Trimethoprim Elevated Blood Pressure,Urticaria Medium 07/11/2017 Had elevated blood pressure and hives. Medications * Be aware that medications may not be up to date on this document. Alwaysverify current medications with the patient. 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 Sinus tachycardia 08/16/2021 Overview (10/03/2023): cardiology referral sent to [facility] cardiology - appt? Holter monitor on today - August 18, 2021. Encounter for preconception consultation 020 History of anemia 03/26/2019 Overview (10/03/2023): Last Assessment & Plan: Labs ordered; will contact w/results once rec'd. Last Assessment & Plan: Labs ordered; will contact w/results once rec'd. Anxiety and depression 01/27/2018 Chiari malformation type I 05/22/2016 Resolved Problems Problem Noted Date Diagnosed Date Resolved Date Chronic headache 07/11/2017 03/07/2020 Assessment & Plan (07/14/2017 12:09 PM CDT): Assessment: Cee Barlow is 17 y.o. female who presents for evaluation of headache. Patient has many features of migraine which at this point, and symptoms sufficiently severe to warrant prophylactic Traitement. Plan: - Start taking Topamax 50 mg at night - Take sumatriptan for severe headaches, but no more than twice daily and no more than 3 times per week - Call to schedule polysomnogram - Follow up in 4 months 1. Keep a headache diary as this can help identify certain triggers and patterns to headaches. 2. Maintain an active lifestyle with at least 30 minutes of exercise a day. 3. Eat a healthy diet and do not skip any meals. 4. Drink plenty of water and try to avoid caffeine regularly. About 8 glasses of water or 64 oz a day is a good goal. 5. Maintain a good sleep routine and try to avoid distractions before bedtime such as watching TV, using a tablet/phone, or being on the computer. Try to put these away at least 30 minutes prior to a scheduled bedtime. Try to get at least 8-10 hours of sleep a night. 6. Do not use pain medication (whether prescribed or over the counter) more than 3-4 times a week as this can sometimes worsen headaches in the terminal gauger. Migraine 05/21/2016 03/07/2020 Mild persistent asthma without complication 04/27/2015 03/07/2020 Assessment & Plan (09/07/2015 9:24 AM CDT): Did well on QVAR but has recently given herself a break with no exacerbations. No albuterol use to speak of, no exercise or nocturnal symptoms. No oral steroids, ED or office visits. 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 Has been on ~6 courses of oral steroids in that time framework and has had multiple diagnoses of bronchitis and pneumonia. Both Mom and Cee are at the point of wishing to try something else. Rec: Start Flovent 44 2 puffs bid Albuterol prn Reviewed Aerochamber technique and provided Reviewed inhaler technique Continue Singulair for time being May be a candidate to come off Flovent late spring through summer and resume with school year F/U 3 months here at [place] Abdominal pain, generalized 2012 03/07/2020 Diarrhea 2012 03/07/2020 Family History Medical History Relation Name Comments Allergies Brother 1 Asthma Brother 1 Asthma Brother 2 Hypertension Father None Known Maternal Grandfather Cancer - Lung Maternal Grandmother Allergies Mother Hyperlipidemia Mother Other Mother MVP None Known Paternal Grandfather CAD (Coronary Artery Disease) Paternal Grandmother Hyperlipidemia Paternal Grandmother Hypertension Paternal Grandmother Other Paternal Grandmother Renal Disease Paternal Grandmother Thyroid Disease Paternal Grandmother Cystic Fibrosis Neg Hx Eczema Neg Hx Tuberculosis Neg Hx Relation Name Status Comments Brother 1 Alive Brother 2 Alive Father Alive Maternal Grandfather Maternal Grandmother Mother Alive Paternal Grandfather Paternal Grandmother Alive Social History Tobacco Use Types Packs/Day Years Used Date Smoking Tobacco: Passive Smo ke Exposure - Never Smoker Smokeless Tobacco: Never Alcohol Use Standard Drinks/Week Comments No 0 (1 standard drink = 0.6 oz pur e alcohol) Comments Unknown Sex and Gender Information Value Date Recorded Sex Assigned at Not on file Legal Sex Female 5:39 AM HARVESTING SUPERVISOR Gender Identity Not on file Sexual Orientation Not on file Last Filed Vital Signs Vital Sign Reading Time Taken Comments Blood Pressure 132/70 10/03/2023 3:11 PM CDT Pulse 117 06/22/2021 9:10 AM CDT Temperature 36.3 C (97.3 F) 06/22/2021 9:10 AM CDT Respiratory Rate 18 04/12/2017 10:14 AM HARVESTING SUPERVISOR per pcp Oxygen Saturation 97% 06/22/2021 9:10 AM CDT Inhaled Oxygen Concentration - - Weight 85.3 kg (188 lb) 10/03/2023 3:11 PM CDT Height 162.6 cm (5' 4 ) 10/03/2023 3:11 PM CDT Body Mass Index 32.27 10/03/2023 3:11 PM CDT Plan of Treatment Health Maintenance Due Date Last Done Comments PAP SMEAR 1999 HPV VACCINE (1 - 3-dose series) 05/28/2014 HEPATITIS C SCREENING 05/24/2017 DTAP/TDAP/TD VACCINES (1 - Tdap) 05/28/2018 HEPATITIS B VACCINE (1 of 3 - 19+ 3-dose series) 05/28/2018 COVID-19 VACCINE (4 - 2023-2 5 season) 2023 02/25/2021, 07/07/2020, 06/14/2020 DEPRESSION SCREENING 03/18/2024 CHLAMYDIA/GONORRHEA SCREENING 08/29/2024, 08/30/2023, 04/05/2021 INFLUENZA VACCINE (Season Ended) 2024 03/27/2010 ZOSTER VACCINE (1 of 2) 05/28/2049 HIV SCREENING Completed 05/01/2021 HIB VACCINE Aged Out No longer eligi ble based on patient's age to complete this topic MENINGOCOCCAL (Group B) VACCINE SHARED DECISION-MAKING Aged Out No longer eligible based on patient's age to complete this topic MENINGOCOCCAL GROUPS A/C/Y/W VACCINE Aged Out No longer eligible b ased on patient's age to complete this topic PNEUMOCOCCAL VACCINE Aged Out No long er eligible based on patient's age to complete this topic Insurance AETNA AETNA AETNA [facility] Advance Directives * Full Code (Latest Code Status on File) Date Activated Date Inactivated Comments 06/04/2016 11:10 AM 06/06/2016 11:06 AM Care Teams Quality Control Engineer Relationship Specialty Start Date End [place] [id number] PCP - General Internal Medicine 06/20/18
--- OUTSIDE RECORDS SUMMARY | 2024-07-20 11:08 | XMS_ITS | Encounter Summary ---
Author Organization [facility] Address [address] [place] [address] Care Team Providers Care Shellfish Dredge Operator Name Role Phone Esmer Begum MD Primary Care Provider [phone] Ivan Brand MD Primary Care Provider [phone] Encounter Details Date Type Department Care Team (Late st Contact Info) Description 06/19/2018 Lab Requisition [facility] [address] [place] [id number] Kristen Oscar MD [address] DE[place] [address] Social History Tobacco Use Types Packs/Day Years Used Date Smoking Tobacco: Passive Smo ke Exposure - Never Smoker Smokeless Tobacco: Never Alcohol Use Standard Drinks/Week Comments No 0 (1 standard drink = 0.6 oz pur e alcohol) Comments No Sex and Gender Information Value Date Recorded Sex Assigned at Not on file Legal Sex 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 Answer Date of Assessment Author No 06/04/2016 9:[address], CANDELARIA * Is person blind or have serious difficulty seeing? Answer Date of Assessment Author No 06/04/2016 9:[address], CANDELARIA * Does person have serious difficulty walking/climbing stairs? Answer Date of Assessment Author No 06/04/2016 9:15 PM CDT Sana Rutherford, POLICE RADIO DISPATCHER-CORRECTIONAL FACILITY NURSE * Does person have difficulty dressing/bathing? Answer Date of Assessment Author No 06/04/2016 9:15 PM CDT Sana Rutherford, POLICE RADIO DISPATCHER-CORRECTIONAL FACILITY NURSE * Does person have difficulty doing errands alone? Answer Date of Assessment Author No 06/04/2016 9:15 PM CDT Sana Rutherford, POLICE RADIO DISPATCHER-CORRECTIONAL FACILITY NURSE documented as of this encounter Mental Status * Does person have difficulty concentrating/remembering/making decisions? Answer Entry Date Author No 06/04/2016 9:15 PM CDT Sana Rutherford, POLICE RADIO DISPATCHER-CORRECTIONAL FACILITY NURSE documented in this encounter Plan of Treatment Not on file documented as of this encounter Procedures Procedure Name Priority Date/Time Associated Diagnosis Comments DERMATOPATHOLOGY Routine 06/18/2018 12:0 0 AM CDT documented in this encounter Results * DERMATOPATHOLOGY (06/18/2018 12:00 AM CDT) Case Report Dermatopathology Report Case: [id number] Authorizing Provider: Kristen Oscar MD Collected: 06/18/2018 12:00 AM Pathologist: Melissa Garcia MD Received: 06/19/2018 06:54 AM Specimen: Skin, left cheek 12:37 PM CDT DERMATOPATHOLOGY LABORATORY Final Diagnosis Specimen A. SKIN, left cheek: LENTIGINOUS MELANOCYTIC NEVUS, COMPOUND TYPE, IRRITATED (COMPOUND MELANOCYTIC NEVUS WITH ARCHITECTURAL DISORDER) (D22.39) 9 12:37 PM CDT DERMATOPATHOLOGY LABORATORY Clinical History R/O halo nevus. [place] bower papule with depia path surrounding. 9 12:37 PM CDT DERMATOPATHOLOGY LABORATORY Gross Description Specimen A: Received is one formalin filled container labeled with the patient's name and designated left cheek. The specimen consists of a shave measuring [id number]. Jar 0. 12:37 PM CDT DERMATOPATHOLOGY LABORATORY Microscopic Description Specimen A. SKIN, left cheek: This is a compound nevus. There is focal parkeratois. There is architectural disorder characterized by a lentiginous proliferation of melanocytes between irregular nevus nests of cells along the dermal epidermal junction. There is underlying fibroplasia of the papillary dermis. The intradermal component is bland in appearance and matures with depth. (Compound Tariq's Nevus or Compound Dysplastic Nevus) 12:37 PM CDT DERMATOPATHOLOGY LABORATORY Disclaimer An external and internal positive and negative controls are appropriate for the histochemical, immunohistochemical and immunofluorescence stain(s) in this case (if any), except where stated explicitly. The performance characteristics of the stain(s) cited in this report were developed and its performance characteristic determined by the Dermatopathology Laboratory at [facility], directed by Dr. Casey Francisco. These tests need not be, and therefore are not, approved by the [place] Food and Drug Administration. The tests are used for clinical purposes. Billing Codes Specimen Charges Stain Charges 18484 1 9 12:37 PM CDT DERMATOPATHOLOGY LABORATORY Embedded Images 12:37 PM CDT DERMATOPATHOLOGY LABORATORY Pathology/Cytolog y TISSUE SPECIMEN FROM SKIN / Unknown 06/18/2018 06/19/2018 6:54 AM CDT Kristen Oscar MD LAB - PATHOLOGY/CYTOLOGY ORD ERABLES Final Result DERMATOPATHOLOGY LABORATORY [facility] - Department of Dermatology [address] [place] [address], [address] [place] [address], [facility] [phone] documented in this encounter Visit Diagnoses Not on filedocumented in this encounter Care Teams Shellfish Dredge Operator Relationship Specialty Start Date End Date Esmer Begum MD PCP - General Pediatrics 07/04/16 06/19/18 [place] [id number] PCP - General Internal Medicine 06/20/18 documented as of this encounter
--- OUTSIDE RECORDS SUMMARY | 2024-07-20 11:09 | XMS_ITS | Data Portability ---
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 Patient will come back in a year unless there are new symptoms. Not available 08/30/2023 16:06:01 09/03/2023 09/03/2023 Consult [email or web address] Not available 09/03/2023 18:36:49 05/22/2024 05/22/2024 Annual gynecological exam performed. Patient will come back in a year unless there are new symptoms. [email or web address] Not available 05/22/2024 15:12:03 Plan of Treatment Reminders Order Date Submit Date Provider Last Modified By Organization Details Last Modified Time Details Appointments SURG Hysterosc opy 2024 09:00A Sana DIETZ MD Not available Not available Not available Lab dhea-sulf ate, serum 2024 025 [facility] (Lab), [address], [place], [address], 06/02/2024 01:00:25 hormone panel, serum or plasma 2024 025 [facility] (Lab), [address], [place], [address], 06/02/2024 01:00:26 progester one, serum 2024 025 [facility] (Lab), [address], [place], [address], 06/02/2024 01:00:26 prolactin , serum 2024 025 [facility] (Lab), [address], [place], [address], 06/02/2024 01:00:25 shbg (sex hormone-b inding globulin) , serum 2024 025 [facility] (Lab), [address], [place], [address], 06/02/2024 01:00:25 TSH, serum or plasma 2024 025 [facility] (Lab), [address], [place], [address], 06/02/2024 01:00:24 testoster one free/test osterone total, ratio, serum 2024 025 [facility] (Lab), [address], [place], [address], 06/02/2024 01:00:27 HbA1c (hemoglob in A1c), blood 2024 025 [facility] (Lab), [address], [place], [address], 06/02/2024 01:00:27 CBC 2024 025 [facility] (Lab), [address], [place], [address], 06/02/2024 01:00:23 CMP, serum or plasma 2024 025 [facility] (Lab), [address] [place], [address], 06/02/2024 01:00:24 insulin, serum 2024 025 [facility] (Lab), [address], [place], [address], 06/02/2024 01:00:26 Referral None recorded. Procedures None recorded. Surgeries hysterosc opy, with endometri al ablation (SURG) [address] [facility], [address], [place], [address], 06/29/2024 08:18:35 Imaging US, pelvis [address], [address], [address], [place], [address], 06/12/2024 21:06:13 US, transvagi nal 2024 [address], [address], [place], [address], 06/12/2024 21:06:13 Medication Orders metformin 500 mg tablet 2024 025 [id number], [address], [place], [place], [id number], 06/19/2024 12:33:13 Loestrin Fe 1/20 (28-Day) 1 mg-20 mcg (21)/75 mg (7) tablet 2024 025 [facility] #[id number], [address], [place], [place], [id number], 06/19/2024 12:33:11 spironola ctone 100 mg tablet 2024 025 [facility] #[id number], [address], [place], [place], [id number], 06/19/2024 12:33:10 Patient TargetsNo targets recorded. Patient InstructionsNo instructions recorded. Reason for Referral None Reported. Results Created Date Observation Date Name Description Value Unit Range Abnormal Flag Note LastModifiedBy Organization Detail LastModifiedTime 08/30/19 24 08/30/2023 IMAGE GUIDE D PAP, REFLE X HPV IF ASCUS ONLY image guided Pap, reflex HPV ASCUS only SEE RESULT S BELOW CASE REPOR T: Cytol ogy Gynec ologi bayron Repor t Case: [id number] Autho marcus gant Provi brittany: Ruby Dietz MD Colle cted: 08/29 1624 Order ing Locat ion: [place] [facility] Recei mona: 09/01 1040 First Scree n: Renae Dumont Speci men: Omid benz Pap - Image d, Cervi x STATE MENT OF ADEQU ACY: Satis facto ry for evalu ation Trans forma tion zone compo nent prese nt ----- ----- ----- ----- ----- ----- ----- ----- ----- ----- ----- ----- ----- ----- ----- ----- ----- ---- FINAL DIAGN OSIS: Negat caitlyn for Intra epith elial Araceli dubose or Chris vásquez ([facility]) . Elect silvana frye srinivas d by Renae Dumont on 2023 at 7:27 PM ----- ----- ----- ----- ----- ----- ----- ----- ----- ----- ----- ----- ----- ----- ----- ----- ----- ---- COMME NT: This speci men was revie wed by a Cytot echno logis t and/o r Patho logis t (as indic ated in this repor t) after evalu ation using the Thinp rep Imagi ng Syste m. CLINI BAYRON INFOR MATIO N: Menst rual Statu s: LMP (if appli cable ): Clini bayron Histo ry/Pr eviou s Pap: Type of Neopl carmelita (if appli cable ): Signi fican t Clini bayron Findi ngs: Other Histo ry: Hormo galileo (if appli cable ): PAP EDUCA JR L NOTE: The Pap Test is a scree demar test with an inher ent false negat caitlyn rate. Liqui d-bas ed sampl ing may decre ase, but will not elimi liliana, false negat caitlyn resul ts. A negat caitlyn resul t does not precl ude the prese nce and/o r devel opmen t of disea se, since the prese nce of abnor mal cells in the sampl e depen ds on the locat ion of the lesio n and sampl ing techn ique. Lloyd nued regul ar scree demar is the best metho d of cance r preve ntion . If repor theresa cytol ogic findi ng do not corre late with physi bayron and/o r histo rical findi ngs, furth er inves tigat ion is recom loc d, as clini joel warra nted. Not Available [facility] (Lab) [address] [facility], [place], [address], 09/03/2023 20:30:38 08/30/19 24 08/30/2023 TRICH OMONA S VAGIN CHADWICK (RRNA ) trichomonas vaginalis ribosomal RNA (rrna) Negati ve negati ve Not Available [facility] (Lab) [address] [place], [address], 09/03/2023 20:30:38 08/30/19 24 08/30/2023 CT/GC (MARIELENA) , THINP REP VIAL chlamydia trachomatis, PCR Negati ve negati ve Not Available [facility] (Lab) [address] [facility], [place], [address], 09/03/2023 20:30:39 08/30/19 24 08/30/2023 CT/GC (MARIELENA) , THINP REP VIAL neisseria gonorrhoeae, PCR Negati ve negati ve Not Available [facility] (Lab) [address] [facility], [place], [address], 09/03/2023 20:30:39 05/23/1905/22/2024 IMAGE GUIDE D PAP, REFLE X HPV IF ASCUS ONLY image guided Pap, reflex HPV ASCUS only CANCEL LED Silvana gould Not Available [facility] (Lab) [address] [facility], [place], [address], 05/26/2024 12:18:01 05/23/19 25 05/22/2024 IMAGE GUIDE D PAP, REFLE X HPV IF ASCUS ONLY image guided Pap, reflex HPV ASCUS only SEE RESULT S BELOW CASE REPOR T: Cytol ogy Gynec ologrosa elena Benjamin t Case: [id number] Autho riearl g Provi brittany: Ruby Dietz MD Colle cted: 05/22 1447 Order ing Locat ion: [place] Patho [place]y Recei mona: 05/25 1045 First Scree n: Soha Trejo, CT Speci men: Scree demar Pap - Image d, Cervi x STATE MENT OF ADEQU ACY: Satis facto ry for evalu ation Trans forma tion zone compo nent prese nt ----- ----- ----- ----- ----- ----- ----- ----- ----- ----- ----- ----- ----- ----- ----- ----- ----- ---- FINAL DIAGN OSIS: Negat caitlyn for Intra epith elial Araceli dubose or Chris vásquez ([facility]) . Cristo verma by Soha reed, CT on 2024 at 1555 CDT ----- ----- ----- ----- ----- ----- ----- ----- ----- ----- ----- ----- ----- ----- ----- ----- ----- ---- COMME NT: This speci men was revie wed by a Cytot echno logis t and/o r Patho logis t (as indic ated in this repor t) after evalu ation using the Thinp rep Imagi ng Syste m. CLINI BAYRON INFOR MATIO N: Menst rual Statu s: LMP (if appli cable ): 2024 Clini bayron Histo ry/Pr eviou s Pap: Type of Neopl carmelita (if appli cable ): Signi fican t Clini bayron Findi ngs: Other Histo ry: Hormo galileo (if appli cable ): PAP EDUCA JR L NOTE: The Pap Test is a scree demar test with an inher ent false negat caitlyn rate. Liqui d-bas ed sampl ing may decre ase, but will not elimi liliana, false negat caitlyn resul ts. A negat caitlyn resul t does not precl ude the prese nce and/o r devel opmen t of disea se, since the prese nce of abnor mal cells in the sampl e depen ds on the locat ion of the lesio n and sampl ing techn ique. Lloyd nued regul ar scree demar is the best metho d of cance r preve ntion . If repor theresa cytol ogic findi ng do not corre late with physi bayron and/o r histo rical findi ngs, furth er inves tigat ion is recom loc d, as clini joel smalls nted. Not Available [facility] (Lab) [address], [place], [address], 05/27/2024 16:59:24 05/23/1905/22/2024 CBC (HEMO GRAM) WBC 9.7 10'3/ uL 3.5-[address] [facility] (Lab) [address], [place], [address], 06/02/2024 01:00:23 05/23/1905/22/2024 CBC (HEMO GRAM) RBC 4.74 10'6/ uL (based on docume nted legal sex) 3.80-[address] [facility] (Lab) [address] [facility], [place], [address], 06/02/2024 01:00:23 05/23/1905/22/2024 CBC (HEMO GRAM) HGB 14.5 g/dL (based on docume nted legal sex) 11.6-[address] [facility] (Lab) [address] [facility], [place], [address], 06/02/2024 01:00:23 05/23/1905/22/2024 CBC (HEMO GRAM) HCT 43.3 % (based on docume nted legal sex) 34.0-[address] [facility] (Lab) [address] [facility], [place], [address], 06/02/2024 01:00:23 05/23/1905/22/2024 CBC (HEMO GRAM) MCV 91.4 fL 80.0-[address] [facility] (Lab) [address] [facility], [place], [address], 06/02/2024 01:00:23 05/23/1905/22/2024 CBC (HEMO GRAM) MCH 30.6 pg 27.0-[address] [facility] (Lab) [address] [place], [address], 06/02/2024 01:00:23 05/23/1905/22/2024 CBC (HEMO GRAM) MCHC 33.5 g/dL 32.0-[address] [facility] ([facility]) [address] [facility], [place], [address], 06/02/2024 01:00:23 05/23/19 25 05/22/2024 CBC (HEMO GRAM) RDW 12.5 % 11.0-[address] [facility] ([facility]) [address] [facility], [place], [address], 06/02/2024 01:00:23 05/23/1905/22/2024 CBC (HEMO GRAM) plt 402 10'3/ uL 150-[address] [facility] ([facility]) [address] [facility], [place], [address], 06/02/2024 01:00:23 05/23/19 25 05/22/2024 CBC (HEMO GRAM) MPV 11.1 fL 8.8-12 .1 Refer ence range s for nonbi nary/ inter sex or unspe cifie d gende r patie nts have not been estab lishe d. Pleas e [facility] for range s estab lishe d for cisge nder patie nts and evalu ate in the clini bayron bala xt of the indiv idual patie nt: https ://ebony stone book. nm.or g/gen derx Not Available [facility] (Lab) [address] [facility], [place], [address], 06/02/2024 01:00:23 05/23/19 25 05/22/2024 CMP(C OMPRE HENSI VE METAB OLIC PANEL ) sodium 140 mmol/ L 133-[address] [facility] (Lab) [address] [place], [address], 06/02/2024 01:00:24 05/23/19 25 05/22/2024 CMP(C OMPRE HENSI VE METAB OLIC PANEL ) potassium 4.1 mmol/ L 3.5-5. [address] [facility] (Lab) [address] [place], [address], 06/02/2024 01:00:24 05/23/19 25 05/22/2024 CMP(C OMPRE HENSI VE METAB OLIC PANEL ) chloride 107 mmol/ L 98-[address] [facility] (Lab) [address] [place], [address], 06/02/2024 01:00:24 05/23/19 25 05/22/2024 CMP(C OMPRE HENSI VE METAB OLIC PANEL ) carbon dioxide 24 mmol/ L 21-[address] [facility] (Lab) [address] [facility], [place], [address], 06/02/2024 01:00:24 05/23/19 25 05/22/2024 CMP(C OMPRE HENSI VE METAB OLIC PANEL ) anion gap 9 mmol/ L 4-[address] [facility] (Lab) [address] [facility], [place], [address], 06/02/2024 01:00:24 05/23/19 25 05/22/2024 CMP(C OMPRE HENSI VE METAB OLIC PANEL ) blood urea nitrogen 9 mg/dL 7-25 Not Available [facility] (Lab) [address] [facility], [place], [address], 06/02/2024 01:00:24 05/23/19 25 05/22/2024 CMP(C OMPRE HENSI VE METAB OLIC PANEL ) creatinine 0.80 mg/dL 0.60-[address] [facility] (Lab) [address] [facility], [place], [address], 06/02/2024 01:00:24 05/23/19 25 05/22/2024 CMP(C OMPRE HENSI VE METAB OLIC PANEL ) egfrcr (CKD-epi 2020) >90 mL/mi n/1.7 3_m2 >=[address] [facility] (Lab) [address] [facility], [place], [address], 06/02/2024 01:00:24 05/23/19 25 05/22/2024 CMP(C OMPRE HENSI VE METAB OLIC PANEL ) calcium 10.1 mg/dL 8.3-[address] [facility] ([facility]) [address] [facility], [place], [address], 06/02/2024 01:00:24 05/23/19 25 05/22/2024 CMP(C OMPRE HENSI VE METAB OLIC PANEL ) glucose 84 mg/dL 70-[address] [facility] ([facility]) [address] [facility], [place], [address], 06/02/2024 01:00:24 05/23/19 25 05/22/2024 CMP(C OMPRE HENSI VE METAB OLIC PANEL ) protein, total 6.6 g/dL 6.4-8. [address] [facility] (Lab) [address] [place], [address], 06/02/2024 01:00:24 05/23/19 25 05/22/2024 CMP(C OMPRE HENSI VE METAB OLIC PANEL ) albumin 4.6 g/dL 3.5-5. [address] [facility] (Lab) [address] [place], [address], 06/02/2024 01:00:24 05/23/19 25 05/22/2024 CMP(C OMPRE HENSI VE METAB OLIC PANEL ) ALT 65 units /L 9-[address] [facility] ([facility]) [address] [place], [address], 06/02/2024 01:00:24 05/23/19 25 05/22/2024 CMP(C OMPRE HENSI VE METAB OLIC PANEL ) alkaline phosphatase 112 units /L 34-[address] [facility] ([facility]) [address] [place], [address], 06/02/2024 01:00:24 05/23/19 25 05/22/2024 CMP(C OMPRE HENSI VE METAB OLIC PANEL ) AST 31 units /L 13-[address] [facility] (Lab) [address] [place], [address], 06/02/2024 01:00:24 05/23/19 25 05/22/2024 CMP(C OMPRE HENSI VE METAB OLIC PANEL ) bilirubin, total 0.4 mg/dL 0.2-1. [address] [facility] ([facility]) [address] [facility], [place], [address], 06/02/2024 01:00:24 05/23/19 25 05/22/2024 TSH, REFLE X FREE T4 TSH 1.25 uIU/m L 0.30-[address] [facility] ([facility]) [address] [facility], [place], [address], 06/02/2024 01:00:24 05/23/19 25 05/22/2024 DHEA SULFA TE DHEA-sulfate 138 ug/dL Femal e Range s Age(y ) Range (ug/d L) 10-15 34-28 0 15-20 65-36 8 20-25 148-4 07 25-35 99-34 0 35-45 61-33 7 45-55 35-25 6 55-65 19-20 5 65-75 9-246 > 75 12-[address] [facility] ([facility]) [address] [facility], [place], [address], 06/02/2024 01:00:25 05/23/19 25 05/22/2024 HUMAN SEX HORMO NE DAVEY NG GLOBU PATRICIO sex hormone binding globulin 36.5 nmole s/L 18.2-[address] [facility] (Lab) [address] [place], [address], 06/02/2024 01:00:25 05/23/19 25 05/22/2024 PROLA CTIN prolactin, total 9.13 NG/mL 4.79-2 3.30 This assay was perfo rmed using [employer] ratio n reage nts and test kits. Value s obtai herman with other assay metho ds or kits canno t be used inter todd eably . Not Available [facility] (Lab) [address] [facility], [place], [address], 06/02/2024 01:00:25 05/23/19 25 05/22/2024 FSH, LH, ESTRA DIOL estradiol 88.3 pg/mL This assay was perfo rmed using [employer] reage nts and test kits. Value s obtai herman with other assay metho ds or kits canno t be used [facility] . Femal e Estra diol Range s: Folli cular phase 12.4- 233 pg/mL Ovula tion phase 41.0- 398 pg/mL Lutea l phase 22.3- 341 pg/mL Postm enopa usal <5-13 8 pg/mL Healt hy Pregn ant Women 1st Trime ster 154-3 243 pg/mL 2nd Trime ster 1561- 90728 pg/mL 3rd Trime ster 8525- >3000 0 pg/mL Not Available [facility] (Lab) [address] [place], [address], 06/02/2024 01:00:26 05/23/1905/22/2024 FSH, LH, ESTRA DIOL FSH 4.1 mIU/m L This assay was perfo rmed using [employer] n reage nts and test kits. Value s obtai herman with other assay metho ds or kits canno t be used [facility] . Femal es Folli cular : 3.5-1 2.5 mIU/m L Ovula tion: 4.7-2 1.5 mIU/m L Lutea l: 1.7-7 .7 mIU/m L Postm enopa use: 25.8- 134.8 mIU/m L Not Available [facility] (Lab) [address] [place], [address], 06/02/2024 01:00:26 05/23/1905/22/2024 FSH, LH, ESTRA DIOL LH 12.6 mIU/m L This assay was perfo rmed using [employer] reage nts and test kits. Value s obtai herman with other assay metho ds or kits canno t be used [facility] . Femal es Mid-F ollic ular: 2.4-1 2.6 mIU/m L Mid-C ycle: 14.0- 95.6 mIU/m L Mid-L uteal : 1.0-1 1.4 mIU/m L Postm enopa use: 7.7-5 8.5 mIU/m L Not Available [facility] ([facility]) [address] [facility], [place], [address], 06/02/2024 01:00:26 05/23/19 25 05/22/2024 PROGE STERO NE progesterone 0.20 NG/mL This assay was perfo rmed using [employer] reage nts and test kits. Value s obtai herman with other assay metho ds or kits canno t be used inter todd eably . Femal e Proge stero ne Range s: Folli cular phase 0.06- 0.89 ng/mL Ovula tion phase 0.12- 12.00 ng/mL Lutea l phase 1.83- 23.90 ng/mL Postm enopa usal <0.05 -0.13 ng/mL Healt hy Pregn ant Women 1st Trime ster 11.0- 44.30 2nd Trime ster 25.40 -83.3 0 3rd Trime ster 58.70 -214. [address] [facility] ([facility]) [address] [facility], [place], [address], 06/02/2024 01:00:26 05/23/1905/22/2024 INSUL IN insulin, total 16.7 uIU/m L 1.9-[address] [facility] ([facility]) [address] [facility], [place], [address], 06/02/2024 01:00:26 05/23/19 25 05/22/2024 HEMOG LOBIN A1C hemoglobin A1C 5.2 % 4.0-5. 6 The Ameri can [employer] lyndon [employer] iatio n recom mends that a prima ry goal of thera maria isabel verma be a HBA1C of < 7% and that physi cians lenka d reeva luate the treat ment regim en in patie nts with HBA1C value s consi stent ly > 8%. <5.7% Sophia l 5.7 - 6.4% Incre ased risk for diabe lyndon >=6.5 % Diagn ostic of diabe lyndon <7.0% Goal of thera py >8.0% Actchuyita smith sted Not Available [facility] ([facility]) [address] [facility], [place], [address], 06/02/2024 01:00:27 05/23/1905/22/2024 TESTO STERO NE, FREE( DIALY SIS) AND TOTAL (LC/M S/MS) testosterone , total 53 NG/dL 2-45 high For addit ional infor oren denson e refer to http: //marian dubose.que stdia gnost ics.c om/fa q/ Total Testo stero neLCM SMSFA Q165 (This link is being provi ded for infonoah qureshi/ educa jr l purpo ses only. ) This test was devel oped and its vonnie tical perfo rmanc e isela cteri stics have been deter mined by [employer] [place] [facility] [place]. It has not been clear ed or appro mona by the U.S. Food and Drug Admin istra tion. This assay has been valid ated pursu ant to the CLIA regul ation s and is used for clini bayron purpo ses. Not Available [facility] (Lab) [address] [facility], [place], [address], 06/02/2024 01:00:27 05/23/1905/22/2024 TESTO STERO NE, FREE( DIALY SIS) AND TOTAL (LC/M S/MS) testosterone , free 6.5 pg/mL 0.1-6. 4 high This test was devel oped and its vonnie tical perfo rmanc e isela cteri stics have been deter mined by [employer] [place] [facility] [employer], [place]. It has not been clear ed or appro mona by the U.S. Food and Drug Admin istra tion. This assay has been valid ated pursu ant to the CLIA regul ation s and is used for clini bayron purpo ses. Perfo rming Organ izati on Infor matio n: Site ID: [id number] Name: Santhosh Martinezi tute Addre ss: [id number] [place], [place] Direc tor: Rasta Cornejo MD PhD Not Available [facility] (Lab) [address] [facility], [place], [address], 06/02/2024 01:00:27 06/13/19 25 06/12/2024 US, pelvi s No observ ation record ed. [facility] [address], [place], [address], 06/12/2024 17:46:31 06/13/19 25 06/12/2024 US, trans vagin al No observ ation record ed. [facility] [address], [place], [address], 06/12/2024 17:46:44 06/13/19 25 06/12/2024 US, pelvi s No observ ation record ed. [email or web address], [place], [address], 06/14/2024 20:34:28 Result Notes None recorded. Problems Name Problem SNOMED Code Status Onset Date Resolution Date Notes Provider Name and Address Organization Details Recorded Time Cyst of ovary Completed 201607/06/2020 Unspecif ied ovarian cyst, unspecif ied side;Rec orded Elsewher e: No Locat ion: Arpita falcon [facility] S ource: EHR Supervisor [employer] familia: N Practi ce ID: [id number] Everett lable Time: 11:45:00 AM Shahrzad frausto [place] - [facility] 14:18:27 Pain in female genitali a Completed 201807/06/2020 Dysmenor sweta, unspecif ied;Jose rded Elsewher e: No Locat ion: [facility] S ource: EHR Supervisor [employer] familia: N Heidi ce ID: [id number] Everett lable Time: 02:15:00 PM Shahrzad frausto, [facility] 14:18:08 Removal of intraute rine device Completed 201907/06/2020 Encounte r for removal of intraute rine contrace ptive device;P ractice ID: [id number] Shahrzad frausto, [facility] 14:18:12 Lesion of ovary Completed 201603/28/2021 Shahrzad Cheung [facility] 12:45:[address] Concept Completed 201607/06/2020 Encntr for size cutter exam (general ) (routine ) w/o abn findings ;Practic e ID: [id number] Shahrzad frausto, [facility] 14:18:19 Pelvic and perineal pain [id number] Completed 201707/06/2020 Pelvic and perineal pain;Pra ctice ID: [id number] Shahrzad Cheung [facility] 14:18:21 Insertio n of intraute rine contrace ptive device Completed 201807/06/2020 Encounte r for insertio n of intraute rine contrace ptive device;P ractice ID: 0001 Shahrzad frausto, [facility] 14:18:07 Pregnanc y test negative [id number] Completed 201807/06/2020 Encounte r for pregnanc y test, result negative ;Practic e ID: 0001 Shahrzad frausto, [facility] 14:18:10 Contrace ptive sheath status [id number] Completed 201807/06/2020 Encounte r for routine checking of intraute rine contrace p dev;Prac jeremy ID: 0001 Shahrzad frausto, [facility] 14:18:23 Clinical finding Completed 201807/06/2020 Presence of (intraut erine) contrace ptive device;P ractice ID: 0001 Shahrzad frausto, [facility] 14:18:25 Disorder of intraute rine contrace ptive device Completed 201807/06/2020 [facility] compl of intraute rine contrace ptive device, init encntr;P ractice ID: 0001 Shahrzad frausto, [facility] 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 14:18:[address] Concept Completed 201607/06/2020 Encntr for routine child health exam w/o abnormal findings ;Recorde d Elsewher e: No Locat ion: [facility] S ource: EHR Supervisor [employer] familia: N Practi ce ID: [id number] [place] lable Time: 03:30:00 PM Shahrzad frausto, [facility] 14:18:15 Chiari malforma tion type I [id number] Completed 202103/28/2021 Stacie Sepulveda MD [address], [place], [id number], [facility] 2 14:52:36 Pregnanc y [id number] Completed 202111/05/2021 Dang Deshpande null, [facility] 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 [place] taylor null, [facility] 2 19:48:34 Tachycar ksenia [id number] Completed cardiolo gy referral sent to [facility] cardiolo gy - appt? Holter monitor on - August 18, 2021. Paris taylor null, [facility] 2 19:48:34 Chiari malforma tion type I [id number] Completed 2021 Paris taylor null, [facility] 2 19:48:34 Chiari malforma tion type I [id number] Active 2021 Paris taylor null, [facility] 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 2 19:48:34 Chiari malforma tion 072923074 Completed Dang Deshpande null, [facility] 4 15:09:01 Postpart um hemorrha ge [id number] Completed h/o Dang Deshpande null, [facility] 4 15:09:01 Cholesta sis [id number] Completed H/O Dang Deshpande null, [facility] 4 15:09:01 Past pregnanc y history of pre-ecla mpsia [id number] Completed asa Dang Deshpande null, [facility] 4 15:09:01 Anxiety 99688721 Completed sertrali ne Dang frausto, [facility] 4 15:09:01 Past pregnanc y history of section 823406975 Completed 2023 Dang frausto, [facility] 4 15:09:01 Nausea and vomiting 87224353 Completed Dang frausto, [facility] 4 15:09:01 Anemia 746431153 Completed 2023 1 tab slowfe daily Dang Deshpande [facility] 4 15:09:01 Female steriliz ation Completed Dang Deshpande [facility] 4 15:09:01 Past pregnanc y history of section 676280945 Active 2023 Dang frausto, [facility] 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 chronic headache - preventative - MgO2+B2, abortive - promethazine 25mg+benadryl 50mg f/u with [facility] pt is already est with. chiari - anesthesia consult third trimester asthma - albuterol prn Problem Notes None recorded. Procedures Surgical History Date Name Laterality Status Provider Name and Address Organization Details Recorded Time 024 Date of Last Pap Smear completed Bijal Kelly [facility] 05/22/2024 15:14:47 024 section completed Dang Deshpande [facility] 05/27/2023 15:10:05 024 Tubal Ligation completed Dang Deshpande [facility] 05/27/2023 15:10:18 023 IUD Removal completed Timmy Dietz MD [address], [place], [address], [facility] 06/14/2022 12:38:53 023 LAPAROSCOPIC OVARIAN CYSTECTOMY (SURG) completed [facility] 03/29/2022 11:29:54 022 IUD Insertion completed Timmy Dietz MD [address], [place], [address], [facility] 03/16/2022 22:37:50 022 SECTION (SURG) completed Elin Barnes [facility] 10/19/2021 10:54:58 020 Endometrial Biopsy completed [facility] 06/14/2022 12:22:27 020 laparoscopic excision of pelvic endometriosis [facility]21 10:14:22 019 Cholecystectomy completed [facility] 06/14/2022 12:22:27 018 [facility] 04/05/2021 10:13:39 017 craniectomy completed Dang Deshpande [facility] 03/22/2023 12:01:12 016 extraction of wisdom tooth completed Shahrzad Cheung [facility] 03/28/2021 12:49:02 011 tonsilectomy/adeno ids completed Shahrzad Cheung [facility] 03/28/2021 12:48:53 Imaging Results Imaging Date Name Status LastModified by Organization Details LastModified Time 06/12/2024 US, pelvis completed iftikhar Rust [address], [place], [address], 06/12/2024 17:46:31 06/12/2024 US, transvaginal completed iftikhar falcon [address], [place], [address], 06/12/2024 17:46:44 06/12/2024 US, pelvis completed [email or web address] [address], [place], [address], 06/14/2024 20:34:28 Procedure Notes None recorded. Medical Equipment None Reported. Allergies Allergen ID Allergen Name Allergen Category Reaction Reaction Severity Criticality Documentation Date Start Date Code Code System Note Provider Name and Address Organization Details Recorded Time 1215 amoxicill in medicatio n hives Not available Not available 09/21/2019 723 RxNorm Erica Meyers [facility] 0 14:02:09 1216 Product containin g penicilli n (product) medicatio n hives Not available Not available 09/21/2019 [address] [facility] 0 14:02:17 1217 sulfameth oxazole medicatio n hives Not available Not available 09/21/[address] [facility] 3 11:09:37 1218 trimethop rim medicatio n Not available Not available Not available 09/21/[address] [facility] 0 14:02:35 91314 Suture (physical object) Not available fever hives Not available Not available Not available 11/16/2022 [address] [facility] 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 07/06 completed Not Available Not Available Not Available Mirena 21 mcg/24 hr (up to 8 years) 52 mg intrauter ine device 1 IUD every 5 yers 05/25 completed Prescrib ed Elsewher e: No [facility]at [facility]: [facility] odify By: cleveland zamora DateTime : 07/19/19 19 08:45:00 AM Not Available Not Available Not Available metformin 500 mg tablet TAKE 1 TABLET BY MOUTH TWICE DAILY active Not Available Not Available No t Available Vitamin B-2 100 mg tablet TAKE 4 TABLETS BY MOUTH DAILY 07/21 completed Not Available Not Available Not Available Qvar 80 mcg/actua tion Metered Aerosol oral inhaler inhale 2 puff by inhalati on route 2 times every day 07/06 completed Prescrib ed Elsewher e: Yes [facility] By: genesis rodriguez DateTime : 07/21/19 16 01:30:00 PM Not Available Not Available Not Available labetalol 200 mg tablet TAKE 1 TABLET BY MOUTH TWICE DAILY 05/22 completed Not Available Not Available Not Available clindamyc in HCl 300 mg capsule 03/22 completed Not Available Not Available Not Available albuterol sulfate 2.5 mg/3 mL (0.083 %) solution for nebulizat ion INHALE ONE VIAL VIA NEBULIZE R EVERY 4 HOURS NEEDED FOR WHEEZING 07/06 completed Not Available Not Available Not Available trazodone 50 mg tablet TK ONE OR TWO TS PO HS FOR 30 DAYS 07/06 completed Not Available Not Available Not Available triamcino lone acetonide 0.5 % topical cream APPLY A THIN LAYER TO THE AFFECTED AREA(S) BY TOPICAL ROUTE 2 TIMES PER DAY 05/22 completed Not Available Not Available Not Available Topamax 25 mg tablet take 2 tablet by oral route 2 times every day in the morning and evening 04/05 completed Not Available Not Available Not Available azithromy sunitha 250 mg tablet TAKE 2 TABLETS BY MOUTH FOR 1 DAY THEN TAKE 1 TABLET BY MOUTH DAILY FOR 4 DAYS 05/22 completed Not Available Not Available Not Available ibuprofen 800 mg tablet Take 1 tablet 3 times a day by oral route. 10/05 completed Not Available Not Available Not Available tizanidin e 4 mg tablet 04/05 completed Not Available Not Available Not Available fluconazo le 150 mg tablet TK 1 T PO 1 TIME 01/27 completed Not Available Not Available Not Available hydrocodo ne 5 mg-acetam inophen 325 mg tablet TK 1 TO 2 TS PO Q 4 H PRN P 02/23 completed Not Available Not Available Not Available tretinoin 0.025 % topical cream JEIMY TO FACE AND CHEST QHS 07/06 completed Not Available Not Available Not Available Loestrin 1.5/30 (21) 1.5 mg-30 mcg tablet TAKE 1 TABLET BY ORAL ROUTE EVERY DAY 07/11 completed Prescrib ed Elsewher e: No Locat ion: [facility] odify By: jersey rodriguez DateTime : 08/31/19 12:10:39 PM Not Available Not Available Not Available fluconazo le 200 mg tablet take 1 tablet by oral route today & the second tablet 48 hours from initial dose. 07/06 completed Prescrib ed Elsewher e: No Locat ion: [facility] odify By: bambi louis DateTime : 12/12/19 12:32:48 PM Not Available Not Available Not Available meloxicam 15 mg tablet TK 1 T PO D 07/06 completed Not Available Not Available Not Available promethaz ine 12.5 mg tablet TAKE 1 TABLET BY MOUTH EVERY 6 HOURS NEEDED FOR NAUSEA OR VOMITING 07/21 completed Not Available Not Available Not Available sumatript an 25 mg tablet 07/06 completed Not Available Not Available Not Available clonazepa m 0.5 mg tablet TK 1 T PO QD PRN 01/27 completed Not Available Not Available Not Available spironola ctone 100 mg tablet TAKE 1 TABLET BY MOUTH EVERY DAY active Not Available Not Available No t Available clonazepa m 1 mg tablet TK 1/2 TO 1 T PO D FOR ANXIETY/ PANIC ATTACKS 07/06 completed Not Available Not Available Not Available Zoloft 20 mg/mL oral concentra te take 5 millilit er by oral route every day and mix with 4 oz. (1/2 cup) of water, jordan dian, lemon/li me soda, lemonade or orange juice ONLY 07/06 completed Prescrib [email or web address] Mead e: Yes Loca tion: Arpita falcon [facility] Sana corona By: shan rodriguez DateTime : 12/11/19 02:30:00 PM Not Available Not Available Not Available meclizine 12.5 mg tablet TAKE 1 TABLET BY MOUTH THREE TIMES DAILY NEEDED FOR DIZZINES S 05/22 completed Not Available Not Available Not Available doxepin 10 mg capsule TK 1 C PO QD HS 01/27 completed Not Available Not Available Not Available ondansetr on 8 mg disintegr ating tablet Place 1 tablet twice a day by translin gual route. 05/09 completed Not Available Not Available Not Available nystatin- triamcino lone 100,000 unit/gram -0.1 % topical ointment APPLY TOPICALL Y TO THE AFFECTED AREA TWICE DAILY 05/09 completed Not Available Not Available Not Available oxycodone -acetamin ophen 5 mg-325 mg tablet 08/29 completed Not Available Not Available Not Available magnesium oxide 400 mg (241.3 mg magnesium ) tablet 07/21 completed Not Available Not Available Not Available oxycodone -acetamin ophen 10 mg-325 mg tablet Take 1 tablet every 6 hours by oral route. 10/05 completed Not Available Not Available Not Available trazodone 100 mg tablet TK 1 T PO QD HS 07/06 completed Not Available Not Available Not Available Flagyl 500 mg tablet Take 1 tablet twice a day by oral route as directed for 7 days. 03/22 completed Not Available Not Available Not Available pantopraz ole 40 mg tablet,de layed release Take 1 tablet every day by oral route. 05/26 completed Not Available Not Available Not Available ergocalci ferol (vitamin D2) 1,250 mcg (50,000 unit) capsule TK 1 C PO 1 TIME A WK 07/06 completed Not Available Not Available Not Available ibuprofen 600 mg tablet TAKE 1 TABLET BY MOUTH FOUR TIMES DAILY NEEDED FOR PAIN 05/22 completed Not Available Not Available Not Available methylpre dnisolone 4 mg tablets in a dose pack TK PO UTD ON PACKAGE 07/06 completed Not Available Not Available Not Available Zoloft 25 mg tablet take 1 tablet by oral route every day 07/06 completed Prescrib ed Elsewher e: Yes Loca tion: [facility] odify By: [email or web address] sounter DateTime : 07/12/19 09:30:00 AM Not Available Not Available Not Available Necon 0.5/35 (28) 0.5 mg-35 mcg tablet Take 1 tablet every day by oral route. 11/24 completed nausea/v omiting Not Available Not Available Not Available fluticaso ne propionat e 50 mcg/actua tion nasal spray,bobby pension SHAKE LIQUID AND USE 1 SPRAY IN EACH NOSTRIL DAILY 03/22 completed Not Available Not Available Not Available sertralin e 50 mg tablet Take 1 tablet every day by oral route. 05/22 completed Not Available Not Available Not Available doxycycli ne hyclate 100 mg tablet TAKE 1 TABLET BY MOUTH DAILY 03/28 completed Not Available Not Available Not Available loratadin e 10 mg tablet 03/22 completed Not Available Not Available Not Available naproxen 500 mg tablet 07/06 completed Not Available Not Available Not Available metoclopr amide 10 mg tablet Take 1 tablet 4 times a day by oral route. 05/26 completed Not Available Not Available Not Available clindamyc in phosphate 1 % topical solution JEIMY TO FACE AND CHEST QHS 01/27 completed Not Available Not Available Not Available escitalop paul 10 mg tablet TK 1 T PO QD IN THE MORNING 01/27 completed Not Available Not Available Not Available Lexapro 20 mg tablet Take 1 tablet every day by oral route. 04/05 completed Not Available Not Available Not Available Singulair 4 mg oral granules in packet 07/06 completed Prescrib ed Elsewher e: Yes Loca tion: [facility] odify By: genesis Falcon ncounter DateTime : 07/21/19 16 01:30:00 PM Not Available Not Available Not Available bupropion HCl XL 300 mg 24 hr tablet, extended release TK 1 T PO QD IN THE MORNING 07/06 completed Not Available Not Available Not Available bupropion HCl XL 150 mg 24 hr tablet, extended release TK 1 T PO QD IN THE MORNING 01/27 completed Not Available Not Available Not Available Ortho-Cyc rebecca (28) 0.25 mg-35 mcg tablet take 1 tablet by oral route every day 05/01 completed Prescrib ed Elsewher e: No [facility] By: justo sounter DateTime : 07/21/19 16 01:30:00 PM Not Available Not Available Not Available mirtazapi ne 7.5 mg tablet TK 1 T PO QD HS 07/06 completed Not Available Not Available Not Available nitrofura ntoin monohydra te/macroc rystals 100 mg capsule TAKE 1 CAPSULE BY MOUTH EVERY 12 HOURS FOR 7 DAYS DIRECTED 05/09 completed Not Available Not Available Not Available meloxicam 07/06 completed Not Available Not Available Not Available fluconazo le 01/27 completed Not Available Not Available Not Available Singulair 04/05 completed Not Available Not Available Not Available Prilosec 03/22 completed Not Available Not Available Not Available trazodone 07/06 completed Not Available Not Available Not Available Vitamin D3 04/05 completed Not Available Not Available Not Available 05/22 completed Not Available Not Available Not Available Qvar 04/05 completed Not Available Not Available Not Available RANDI (28) 3 mg-0.02 mg tablet take 1 tablet by oral route every day 07/20 completed Prescrib ed Elsewher e: No Locat ion: [facility] odify By: janeth Torres ntarlene DateTime : 07/21/19 16 01:30:00 PM Not Available Not Available Not Available Vitamin D3 10 mcg (400 unit) capsule 07/06 completed Prescrib ed Elsewher e: Yes [facility] By: jersey rodriguez DateTime : 06/26/19 18 02:00:00 PM Not Available Not Available Not Available meloxicam 7.5 mg/5 mL oral suspensio n take 5 millilit er by oral route every day 07/06 completed Prescrib ed Elsewher e: Yes Loca tion: [facility] odify By: cleveland zamora DateTime : 05/26/19 11:15:00 AM Not Available Not Available Not Available Tri-Lo-Sp rintec 0.18 mg/0.215 mg/0.25 mg-0.025 mg tablet TK 1 T PO QD 07/06 completed Not Available Not Available Not Available butalbita l-acetami nophen-ca ffeine 50 mg-300 mg-40 mg capsule Take 1 capsule every 4 hours by oral route. 05/26 completed Not Available Not Available Not Available Lo Loestrin Fe 1 mg-10 mcg (24)/10 mcg (2) tablet take 1 tablet by oral route every day 06/25 completed Prescrib ed Elsewher e: No Locat ion: [facility] odify By: vane louis DateTime : 04/29/19 02:20:24 PM Not Available Not Available Not Available ProAir RespiClic k 90 mcg/actua tion breath activated INHALE 2 PUFFS BY MOUTH EVERY 4 HOURS NEEDED FOR SHORTNES S OF BREATH OR WHEEZING 07/06 completed Not Available Not Available Not Available Blisovi Fe 04/06 (28) 1 mg-20 mcg (21)/75 mg (7) tablet TAKE 1 TABLET BY MOUTH EVERY DAY active Not Available Not Available No t Available Kyleena 17.5 mcg/24 hr (up to 5 years) 19.5 mg intrauter ine device Take by intraute rine route. 06/14 completed Not Available Not Available Not Available Vitals Date Recorded Body height Body mass index (BMI) Body weight Systolic blood pressure Diastolic blood pressure Provider Name and Address Organization Details Last Updated DateTime 08/30/2023 160.02 cm 32.4 kg/m2 60677.4 g 125 mm[Hg] 81 mm[Hg] Callie Garcia [facility] 4 16:08:27 Date Recorded Body height Body mass index (BMI) Body weight Systolic blood pressure Diastolic blood pressure Provider Name and Address Organization Details Last Updated DateTime 05/22/2024 160.02 cm 36.3 kg/m2 74916.44 g 134 mm[Hg] 85 mm[Hg] Bijal [facility] 5 15:12:59 Date Recorded Body height Body mass index (BMI) Body weight Systolic blood pressure Diastolic blood pressure Provider Name and Address Organization Details Last Updated DateTime 06/19/2024 160.02 cm 36 kg/m2 09646.25 g 114 mm[Hg] 71 mm[Hg] [facility] 5 11:53:22 Social History Question Answer Notes LastModified by Organizat ion Details LastModified Time Tobacco Smoking Status Never Smoker Danyelle Marcial lisbet, [facility] 02/23/2022 09:56:32 Do You Have An Advance Directive? No [email or web address] Information n ot available 04/05/2021 What Is Your Level Of Alcohol Consumption? Occasional [email or web address] Information not available 04/05/2021 Are You Blind Or Do You Have Difficulty Seeing? No [email or web address] Information n ot available 04/05/2021 What Is Your Level Of Caffeine Consumption? Moderate [email or web address] Information not available 04/05/2021 How Much Tobacco Do You Chew? None [email or web address] Information not available 04/05/2021 In The 14 Days Before Symptom Onset, Have You Had Close Contact With A Laboratory-confirm ed COVID-19 While That Case Was Ill? No [email or web address] Information n ot available 04/05/2021 In The 14 Days Before Symptom Onset, Have You Had Close Contact With A Person Who Is Under Investigation For COVID-19 While That Person Was Ill? No [email or web address] Information not available 04/05/2021 Have You Been To An Area Known To Be High Risk For COVID-19? No Information not available 04/05/2021 Are You Deaf Or Do You Have Serious Difficulty Hearing? No [email or web address] Information not available 04/05/2021 What Type Of Diet Are You Following? REGULAR [email or web address] Information n ot available 04/05/2021 What Is The Highest Grade Or Level Of School You Have Completed Or The Highest Degree You Have Received? [id number] [email or web address] Information not available 04/05/2021 What Is Your Occupation? Information not available 04/05/2021 Are There Any Guns Present In Your Home? No Information not available 04/05/2021 Do You Use Protection During Sex? No Information not available 04/05/2021 Do You Use Your Seat Belt Or Car Seat Routinely? Yes [email or web address] Information not available 04/05/2021 Do You Have Smoke And Carbon Monoxide Detectors In Your Home? Yes [email or web address] Information not available 04/05/2021 How Much Tobacco Do You Smoke? No [email or web address] Information not available 04/05/2021 Do You Feel Stressed (tense, Restless, Nervous, Or Anxious, Or Unable To Sleep At Night)? [id number] [email or web address] Information not available 04/05/2021 Do You Use Any Illicit Or Recreational Drugs? No Information not available 04/05/2021 Do You Use Sunscreen Routinely? Yes Information not available 04/05/2021 Have You Used IV Drugs? No [email or web address] Information not available 04/05/2021 Sex: Unknown Functional Status Question Answer Note LastModified by Organizat ion Details LastModified Time Do you have difficulty walking or climbing stairs? No [email or web address] Information not available 03/22/2023 Are you able to walk? YESWOREST [email or web address] Information not available 04/05/2021 Are you able to care for yourself? Yes [email or web address] Information not available 03/22/2023 Do you have difficulty dressing or bathing? No [email or web address] Information not available 03/22/2023 What is your exercise level? Moderate [email or web address] Information not available 04/05/2021 Mental Status None recorded. Family History Relationship Description Onset Age of this Age Resolved Age Notes LastModified by Organization Details LastModified Time Mother Hyperlipidem ia [email or web address] Not available 2023 16:46:39 Mother Cyst of ovary [email or web address] Not available 2023 16:46:39 Mother Endometriosi s (clinical) [email or web address] Not available 16:46:39 Mother Congenital heart disease [email or web address] Not available 2023 16:46:39 Paternal Grandmother Hyperlipidem ia [email or web address] Not available 2023 16:46:39 Paternal Grandmother Congenital heart disease [email or web address] Not available 2023 16:46:39 Paternal Grandmother Disorder of thyroid gland [email or web address] Not available 2021 10:07:40 Paternal Grandmother Hypertensive disorder [email or web address] Not available 2021 10:07:40 Maternal Grandmother Endometriosi s (clinical) [email or web address] Not available 16:46:39 Maternal Grandmother Carcinoma in situ of lung [email or web address] Not available 16:46:39 Maternal Grandmother Pulmonary embolism [email or web address] Not available 2023 16:46:39 Maternal Grandmother Carcinoma in situ of uterus [email or web address] Not available 2023 16:46:39 Maternal Grandmother Malignant tumor of cervix [email or web address] Not available 2021 10:07:40 Maternal Grandmother Hypertensive disorder [email or web address] Not available 2021 10:07:40 Maternal Aunt Carcinoma in situ of breast Not available 2023 16:46:39 Maternal Grandfather Disorder of thyroid gland [email or web address] Not available 2023 16:46:39 Maternal Grandfather Anemia [email or web address] Not available 11/2021 10:07:40 Maternal Grandfather Diabetes mellitus [email or web address] Not available 2023 16:46:39 Maternal Grandfather Blood coagulation disorder [email or web address] Not available 2023 16:46:39 Brother Asthma [email or web address] Not available 02/23/2022 10:07:40 Medical History Condition Response Allergies (Food, seasonal, environmental ) Y Other Y Breast Cancer N Drug/Latex Allergies/Reactions Y Blood Transfusion N Dermatologic Disorders N Lung Disease N Defects or Inherited Disease N Breast Problem N Gestational Diabetes N Hematologic disorders N Anesthesia Complications Y History of STI N Deep Vein Thrombosis N Polycystic ovary syndrome N Anxiety Disorder Y Autoimmune disease N Arthritis N Infertility N Polyps N Acid Reflux (GERD) Y History of abnormal pap N Cancer N Stroke N Varicosities N Neurologic/Epilepsy Y Endometriosis Y High Cholesterol N Headaches Y Fibromyalgia N Kidney Disease N Heart Problems N Kidney or Bladder Problems N Thyroid Problems N GI Problems N Eating Disorder N Anemia N Art (IVF or FET) N Psychiatric Illness N Ovarian Cancer N Diabetes N Pulmonary (TB, Asthma) N Hepatitis/Liver Disease N No Past Medical History Y Eczema N Urinary Tract Infection N Abuse/Domestic Violence N Asthma Y Trauma/Violence N Depression/ depression Y Pre-Eclampsia Y Hypertension Y Osteoporosis N Thrombophilias N Gynecological History Statement/Question Response Flow Heavy Date of LMP 06/01/2024 On BCP's at Conception? N N Was last menstrual period normal Y STIs/STDs N HPV Vaccine N Duration of Flow (days) 9 Current Control Method Tubal Ligat ion Age at First Child 21 Are cycles usually normal N Sexually Active? Y N/A Menses Monthly N Age of first menstrual cycle 13 Date of Last Pap Smear 08/30/2023 Sexual Problems? N Desired Control Method Ablation LMP Definite N Obstetrics History GPAL:G 2 P 1 1 0 2 Type Value Full Term 1 Premature 1 Living 2 Total 2 Past Encounters Encounter ID Performer Location Encounter Start Date Encounter Closed Date Diagnosis/Indication Diagnosis SNOMED-CT Code Diagnosis ICD10 Code Diagnosis Note [id number] Timmy Dietz MD [place] [address] [address] 09/21/2019 13:53:35 09/21/2019 14:20:13 Pain in pelvis 34148007 R10.2 This patient is a 19 -year-old female with pelvic pain. We have agreed to complete the evaluation with pelvic ultrasound . The patient will return after the pelvic ultrasound to discuss those findings and to develop a treatment plan. A comprehens caitlyn history and physical exam was performed today. We spent over 25 minutes face-to-fa ce. The patient was given precaution s. She will contact clinic if pelvic pain increases in frequency or intensity. Also notify clinic of any new symptoms associated with pelvic pain. She does not appear to have an acute pelvic infection today, but was asked to contact us Immediatel y with nausea, vomiting, fever, chills. [id number] Timmy Dietz MD [place] [address] [address] 10/02/2019 10:26:56 10/02/2019 11:11:52 Pain in pelvis 75909293 R10.2 This patient is a 19 -year-old female with pelvic pain. We have agreed to complete the evaluation with pelvic ultrasound . The patient will return after the pelvic ultrasound to discuss those findings and to develop a treatment plan. A comprehens caitlyn history and physical exam was performed today. We spent over 25 minutes face-to-fa ce. The patient was given precaution s. She will contact clinic if pelvic pain increases in frequency or intensity. Also notify clinic of any new symptoms associated with pelvic pain. She does not appear to have an acute pelvic infection today, but was asked to contact us Immediatel y with nausea, vomiting, fever, chills. [id number] Timmy Dietz MD [facility] [place] [address] [address] 10/02/2019 10:27:16 10/02/2019 11:51:29 Pain in pelvis [id number] R10.2 This patient is a 19-year-ol d female presents for follow-up on pelvic pain and pelvic ultrasound . Her pelvic ultrasound was reviewed today. We talked about the results and it is normal.Amanda hendricks has a family history of endometrio sis. She has longstandi ng pelvic pain. She has failed oral contracept caitlyn pills andMirena IUD. She is interested in getting a definitive diagnosis and treatment. We talked aboutdiagn ostic laparoscop y. We agreed to go forward with diagnostic laparoscop y. We spent 15 minutes face-to-fa ce.We talked aboutthe ultrasound , possible diagnoses, or failed medicaltre atments of her pelvic pain. The nature of her pelvic pain. We talked about treatment options. We talked about diagnostic laparoscop y and its details.We will proceed with diagnostic laparoscop y. [id number] Timmy Dietz MD [facility] [place] [address],[place] [address] 10/23/2019 11:27:30 10/23/2019 12:24:53 Postoperative care [id number] Z48.89 This patient is a 19-year-ol d female presents forpostopf ollow-up. She had a diagnostic laparoscop y where endometrio sis and hemoperito neum was observed. It was corrected. There is biopsy proven endometrio sis. We talked today amount adjunct treatment for endometrio sis and treatment for hemoperito neum. Hemoperito neum was likely due to retrograde menstruati on. We agreed to make her amenorrhei c with hormonal contracept ion. We agreed to combined oral contracept caitlyn pills. We talked about all the hormonal treatment options,or lisaand Lupron. We will proceed with combined oral contracept caitlyn pills. She will follow up in 3 months. [id number] Geovanna Pizarro CNM [place] [place] [address],[facility] [place] [address] 01/28/2020 10:33:21 01/28/2020 12:22:00 Endometriosis of pelvis 07705047 N80.3 Pain has resolved with surgery and use of ocp. Does not want to continue because she desires . Discussed risks and benefits. Strongly encouraged use of pnv with dha and folic acid 3 months prior to conception . 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 Would like [facility] consult to discuss. [id number] Timmy Dietz MD [place] [address],[facility] [place] [address] 07/06/2020 14:02:08 07/06/2020 14:52:55 Gynecologic examination 37856272 Z01.419 This patient is here for her annual exam. A thorough history was taken. A physical exam was performed. Age appropriat e routine health screening was ordered, performed, and discussed. Recommende d testing was ordered. She was asked to follow up in one year. She will be informed of any test results. Pap - today [id number] Geovanna Pizarro CNM [place] [address],[facility] [place] [address] 04/05/2021 09:38:55 04/05/2021 10:50:11 Chiari malformation type I [id number] G93.5 test positive 761799192 Z32.01 Risk factors addressed: Tobacco Cessation, Safe Sexual Practices, environmen jordan, work hazards, travel restrictio ns, seat belt use.Eat a health well balanced diet, avoid alcohol, tobacco, and street drugs.Enga ge in daily low impact exercise, avoid temperatur e extremes, and cat, rodent, and bird feces.Avoi d travel to areas where zika virus is a concern.Of fered cf/sma/nip t. Handouts given and discussed with patient.Ch ildbirth classes recommende d.New OB sheet given.If previous , counseling . Needs mfm and neuro consult. Task sent to OB. Has had covid shots and booster.Pt verbalizes that she understand s the importance of above instructio ns.All questions were answered.P atient reminded to have annual well woman examinatio n and address preventati [facility] . [id number] Timmy Dietz MD [place] [address],[place] [address] 04/05/2021 09:38:40 04/05/2021 10:29:41 [id number] Timmy Dietz MD [place] [place] [address],[place] [address] 05/01/2021 14:47:55 05/01/2021 16:13:00 Routine care [id number] Z34.01 [id number] Timmy Dietz MD [place] [place] [address],[place] [address] 05/26/2021 16:14:06 05/26/2021 17:17:43 [id number] Timmy Dietz MD [place] [address],[place] [address] 05/26/2021 16:14:34 2021 11:55:58 Nausea and vomiting 49021021 R11.2 [id number] Timmy Dietz MD [place] [place] [address],[place] [address] 06/29/2021 15:52:21 06/29/2021 17:11:05 screening 656331439 Z36.3 [id number] Timmy Dietz MD [place] [place] [address],[place] [address] 06/29/2021 16:31:07 07/02/2021 16:44:08 Routine care 605640642 Z34.01 [id number] Stacie Sepulveda MD [place] [place] [address],[place] [address] 07/21/2021 14:27:16 07/21/2021 14:53:31 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 Routine an tenatal care 948325428 Z34.02 [id number] Timmy Dietz MD [place] [place] [address],[place] [address] 08/18/2021 09:14:02 08/18/2021 10:08:22 Routine care 511004217 Z34.01 [id number] Timmy Dietz MD [place] [place] [address],[place] [address] 08/24/2021 15:39:29 08/24/2021 16:27:47 Reduced movement 937990821 O36.8199 [id number] Timmy Dietz MD [place] [place] [address],[place] [address] 08/31/2021 13:50:07 08/31/2021 15:07:40 Routine care 814218377 Z34.01 [id number] Stacie Sepulveda MD [place] [place] [address],[place] [address] 09/12/2021 11:24:13 09/12/2021 12:10:44 Pre-existing maternal disease complicating 0744409828 6106 O99.891 Z3A.31 [id number] Stacie Speulveda MD [place] [place] [address],[place] [address] 09/12/2021 11:30:01 09/12/2021 12:26:34 Routine care 890367514 Z34.02 Chiari mal formation type I 559967945 G93.5 [id number] Timmy Dietz MD [place] [place] [address],[place] [address] 09/29/2021 15:36:22 09/29/2021 16:56:49 Routine care 435398123 Z34.01 [id number] Timmy Dietz MD [place] [place] [address],[place] [address] 10/03/2021 12:22:57 10/03/2021 15:57:15 Reduced movement 888899972 O36.8199 [id number] MD Yocasta Boone [address],[place] [address] 10/13/2021 14:31:23 10/13/2021 15:34:13 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 She had a delivery for Chiari malformati on and preeclamps ia. Her blood pressures are persistent ly elevated. We agreed to treatment today. Patient is going to check her blood pressures at home and report to us if she has blood pressures persistent ly in the 150s over 100s. She denies any symptoms of preeclamps ia she denies any signs. Her baby is doing well. Her mood is a little labile but nothing out of the ordinary. To follow-up in 3 weeks. [id number] MD Yocasta Boone [address],[place] [address] 11/15/2021 17:47:47 11/15/2021 23:06:00 care 365154024 Z39.2 This patient is a 21-year-ol d female presents for follow-up on blood pressure. She is also here for follow-up. She is breastfeed ing and bottle feeding. She does not want any hormonal contracept ion or any contracept ion for that matter. She is not bleeding. She has not had sex. Her mood is good. Her baby is well. Blood pressure is stable on 200 mg of labetalol. She will consider consider discontinu ing that when her blood pressure is more normal. [id number] Timmy Dietz MD [facility] [place] [address] [address] 02/23/2022 09:55:36 02/23/2022 11:53:14 Dyspareunia 21678734 N94.10 pain with intercours e, pain at her incisional site with intercours e. Gynecologi c examination 41433126 Z01.419 Z11.3 Z11.8 This patient is here for her annual exam. A thorough history was taken. A physical exam was performed. Age appropriat e routine health screening was ordered, performed, and discussed. Recommende d testing was ordered. She was asked to follow up in one year. She will be informed of any test results. Pap - today [id number] Timmy Dietz MD [place] [place] [address],[facility] [place] [address] 03/15/2022 16:51:03 03/16/2022 14:25:46 Dyspareunia 76006113 N94.10 pain with intercours e, pain at her incisional site with intercours e. [id number] Timmy Dietz MD [place] [address],[facility] [place] [address] 03/16/2022 16:20:31 03/17/2022 18:26:07 Contraception care management 994761943 Z30.9 IUD placed without complicati ons. Discussed ultrasound results. Patient has large hemorrhagi c ovarian cyst. She is 2 months of pelvic pain. She would like cystectomy . We agreed to laparoscop ic left ovarian cystectomy . We spent over 25 minutes face-to-fa ce and made a decision to perform surgery. [id number] Timmy Dietz MD [place] [place] [address],[facility] [place] [address] 06/14/2022 12:08:56 06/14/2022 13:10:39 Pain in pelvis 04072763 R10.2 patient is a 22-year-ol d female abnormal uterine bleeding and dysmenorrh ea. She has retrograde menstruati on and discovered on a diagnostic laparoscop y. We have tried multiple ways controllin g her bleeding or eliminatin g her bleeding. These include oral contracept caitlyn pills, progestero ne only pill, and now Mirena IUD. Mirena IUD has not had sent and affect. She continues to bleed and continues to have pain. She is going to discontinu e this treatment and just move forward with possibly getting . We discussed future treatments , procedures , surgeries. IUD was removed without complicati on. Abnormal u terine bleeding [id number] 9100 N93.9 [id number] Timmy Dietz MD [place] [place] [address],[place] [address] 03/29/2022 09:59:53 03/29/2022 10:01:43 [id number] Timmy Dietz MD [place] [place] [address],[place] [address] 04/05/2022 16:52:48 04/05/2022 17:59:37 Postoperative care 025449982 Z48.89 21-year-ol d female who is 1 week postop from diagnostic laparoscop y. She had an ovarian cyst. Ovarian cystectomy was performed. There was a hemoperito neum. Talked about eliminatin g that menstrual cycle or her menses. She has a Mirena IUD placed. She has been bleeding for several weeks. This was probably the bleeding that was visualized in the intra-abdo destinee cavity. No endometrio sis visualized at the time of the surgery. She has a history of resection of endometrio sis. We are going to continue to observe the Mirena, she is going to have another child possibly be by the end of this year. We look forward to that. She will follow-up as needed. [id number] Timmy Dietz MD [place] [place] [address],[facility] [place] [address] 10/05/2022 10:48:20 10/05/2022 17:17:15 Amenorrhea 46678862 N91.2 This patient is a 22-year-ol d female with 3 months of amenorrhea , weight gain over the past year, we discussed weight management . Sanket verma calorie counting, discussed exercise, discussed a menorrhea. We spent over 40 minutes face-to-fa ce. More than 50% was counseling . We agreed to labs and pelvic ultrasound . Abnormal u terine bleeding 0295154969 9100 N93.9 Educated a bout weight management 851081261 Z71.3 [id number] Timmy Dietz MD [place] [place] [address],[place] [address] 10/12/2022 16:03:19 10/12/2022 17:00:10 Irregular periods 28027249 N92.6 [id number] Timmy Dietz MD [place] [place] [address],[place] [address] 11/16/2022 10:57:03 11/16/2022 12:51:02 screening 660160947 Z36.87 Z3A.10 [id number] Timmy Dietz MD [place] [place] [address],[place] [address] 11/16/2022 10:58:01 11/20/2022 13:56:16 Nausea and vomiting 66705020 R11.2 Amenorrhea 14137437 N91. 2 22-year-ol d female, multiparou s who presents for amenorrhea . Patient has positive test. Pelvic ultrasound revealed a intrauteri ne . Discussed early , genetic screening, care we talked appropriat e laboratory testing. She is 10 weeks gestation. She will follow-up in 2 weeks. Spent 20 minutes face-to-fa ce. More than 50% was counseling . [id number] Timmy Dietz MD [facility] [place] [address],[place] [address] 11/29/2022 16:28:55 11/29/2022 17:14:53 screening 046908610 Z36.82 [id number] Timmy Dietz MD [place] [place] [address],[place] [address] 11/30/2022 12:05:16 11/30/2022 15:10:10 Anxiety 17532324 F41.9 Routine an tenatal care 999948071 Z34.01 [id number] Timmy Dietz MD [place] [place] [address],[place] [address] 12/28/2022 14:44:12 12/28/2022 15:47:59 [id number] Timmy Dietz MD [place] [place] [address],[place] [address] 12/28/2022 14:45:55 12/28/2022 16:55:05 Nausea and vomiting 06017799 R11.2 [id number] Timmy Dietz MD [place] [place] [address],[place] [address] 01/09/2023 17:10:54 01/10/2023 02:26:44 Routine care 789694614 Z34.01 Pt here to doppler heart tones for reassuranc e. heart tones 144-152. Pt has been experienci ng low abdominal pain today and is not feeling movement. Pt reassured. Pt took Tylenol with only minimal relief. Pt offered a maternity belt but states she wore a maternity belt during her first and it did not help. Pt will rest, increase hydration, continue to take Tylenol as needed, and monitor symptoms. Pt will call back if her abdominal pain increases or she experience s a change in symptoms. Chandrika Barraza ier, RN [id number] Timmy Dietz MD [facility] [place] [address],[place] [address] 01/25/2023 15:02:10 01/25/2023 16:25:14 screening for malformation 028093379 Z36.3 Z3A.20 [id number] Timmy Dietz MD [place] [place] [address],[place] [address] 02/01/2023 14:31:54 02/01/2023 15:40:57 Routine care 259248404 Z34.01 Pt here to doppler heart tones for reassuranc e. heart tones 144-152. Pt has been experienci ng low abdominal pain today and is not feeling movement. Pt reassured. Pt took Tylenol with only minimal relief. Pt offered a maternity belt but states she wore a maternity belt during her first and it did not help. Pt will rest, increase hydration, continue to take Tylenol as needed, and monitor symptoms. Pt will call back if her abdominal pain increases or she experience s a change in symptoms. Chandrika Barraza ier, RN [id number] Timmy Dietz MD [place] [place] [address],[place] [address] 03/01/2023 15:23:52 03/01/2023 16:02:42 Suspected abnormality affecting management of mother [id number] 8931013 O35.8XX0 Z3A.25 [id number] Timmy Dietz MD [place] [place] [address],[place] [address] 03/01/2023 15:24:20 03/01/2023 16:35:26 Cholestasis of 763748402 O26.642 [id number] [facility] [address],[place] [address] 03/22/2023 11:20:12 03/22/2023 13:01:36 Routine care 350987207 Z34.90 [id number] Timmy Dietz MD [place] [place] [address],[place] [address] 03/22/2023 12:24:35 03/22/2023 13:38:17 condition affecting obstetrical care of mother 351876204 O35.8XX0 Z3A.28 [id number] AARON JUÁREZ MD [facility] [place] [address],[place] [address] 04/05/2023 14:39:55 04/11/2023 07:22:38 Migraine 10085564 G43.909 Uterine sc ar from previous surgery affecting 04039552 O34.29 Gestation period, 30 weeks 34424411 Z3A.30 [id number] Timmy Dietz MD [place] [place] [address],[place] [address] 04/19/2023 10:33:37 04/19/2023 11:34:09 section following previous section 609230487 O34.219 Routine an tenatal care 285942479 Z34.01 Pt here to doppler heart tones for reassuranc e. heart tones 144-152. Pt has been experienci ng low abdominal pain today and is not feeling movement. Pt reassured. Pt took Tylenol with only minimal relief. Pt offered a maternity belt but states she wore a maternity belt during her first and it did not help. Pt will rest, increase hydration, continue to take Tylenol as needed, and monitor symptoms. Pt will call back if her abdominal pain increases or she experience s a change in symptoms. Chandrika winslow, KWAKU [id number] Timmy Dietz MD [facility] [place] [address],[place] [address] 05/09/2023 16:57:04 05/09/2023 17:35:45 care: poor obstetric history 746215095 O09.293 Z3A.35 [id number] Timmy Dietz MD [place] [place] [address],[place] [address] 05/09/2023 16:57:36 05/10/2023 07:06:10 Acid reflux 786762988 K21.9 Headache 20943112 R51.9 Routine an tenatal care 651870884 Z34.01 Pt here to doppler heart tones for reassuranc e. heart tones 144-152. Pt has been experienci ng low abdominal pain today and is not feeling movement. Pt reassured. Pt took Tylenol with only minimal relief. Pt offered a maternity belt but states she wore a maternity belt during her first and it did not help. Pt will rest, increase hydration, continue to take Tylenol as needed, and monitor symptoms. Pt will call back if her abdominal pain increases or she experience s a change in symptoms. Chandrika winslow, KWAKU [id number] Timmy Dietz MD [facility] [place] [address],[place] [address] 05/17/2023 15:29:31 05/18/2023 04:33:54 Routine care 152442919 Z34.01 [id number] Timmy Dietz MD [place] [place] [address],[place] [address] 05/27/2023 14:48:54 05/27/2023 15:45:16 Contact dermatitis 55545067 L25.9 Postoperative care 23774 9007 Z48.89 This patient is a 22-year-ol d female who presents for postop follow-up. She is 1 week postop from a delivery. Her incision is clean dry and intact. She has no complaints . Her bleeding is minimal. She denies any nausea, vomiting, fever, chills. She denies any chest pain or shortness of breath. Her baby is doing well. Her mood is good. [id number] Timmy Dietz MD [facility] [place] [address],[place] [address] 06/28/2023 15:08:31 06/28/2023 15:58:53 care 834978216 Z39.2 this patient is a 23-year-ol d female who presents for follow-up. She is doing well. Her mood is good. She is no longer bleeding. She has not had sex. She had a tubal ligation. The baby is doing well. The baby is breast and bottle feeding. She has no complaints . She will follow-up as needed. She will return for well-woman exam in 2-3 months. [id number] Timmy Dietz MD [facility] [place] [address],[place] [address] 08/30/2023 15:45:07 09/02/2023 10:46:48 Gynecologic examination 62187601 Z01.419 Z11.3 Z11.8 This patient is here for her annual exam. A thorough history was taken. A physical exam was performed. Age appropriat e routine health screening was ordered, performed, and discussed. Recommende d testing was ordered. She was asked to follow up in one year. She will be informed of any test results. Vaginismus -2 refer to a vulvovagin al specialist for vaginismus . Pap - today [id number] Timmy Dietz MD [facility] [place] [address],[place] [address] 09/03/2023 16:46:29 09/05/2023 09:10:49 management 169882463 Z39.1 Pt here for consult. Pt c/o shallow latch and low breast milk supply. Pt delivered on 05/20/23, experience d significan t post hemorrhage , and was transferre d to the NICU and bottle fed. Pt states she pumped during her post stay but her milk supply has always been low and the has a poor latch. to breast. Infant is noted to have a shallow latch and disorganiz ed suck pattern. Pt instructed on ways to encourage a deep latch and instructed on how to work with the infant on pulling her bottom lip down so both lips are flanged out. Successful latch achieved but infant is frustrated at the breast. Pt informed the is likely used to the fast flow of an artificial nipple due to bottle feeding. Pt instructed to pump until her let down occurs before putting the infant to breast so she is less frustrated with working for the pt's let down. Pt also instructed on paced bottle feeding. Pt is already taking supplement s to encourage increased milk supply with no success. Pt instructed on supply and demand and encouraged to pump around the clock. Pt also instructed on power pumping. Pt instructed on importance of infant breast feeding for hormonal response to nursing. Pt verbalized understand ing. Pt will attempt breast feeding with each feeding, encourage deep latch with both lips flanged out, and increase breast tissue stimulatio n. I will follow up next week. Chandrika Barraza ier, LAW ENFORCEMENT DIRECTOR CLC [id number] Timmy Dietz MD [place] [place] [address],[place] [address] 05/22/2024 15:05:43 05/22/2024 15:50:06 Gynecologic examination 51989214 Z01.419 Z11.3 Z11.8 This patient is here for her annual exam. A thorough history was taken. A physical exam was performed. Age appropriat e routine health screening was ordered, performed, and discussed. Recommende d testing was ordered. She was asked to follow up in one year. She will be informed of any test results. Pap - today This patient is a 23-year-ol d female presents for heavy vaginal bleeding. She has longstandi ng very heavy bleeding. Her menses are regular. However, they require double protection . Patient has accidents, getting blood on her bedding and clothing. Is affected work. She changes a pad or tampon every hour. She leaks blood around the pad and tampon. This bleeding has a profound impact on her quality of life and her activities of daily living. Obesity 641246491 E66.9 Abnormal u terine bleeding 2973558346 9100 N93.9 Menorrhagia 328364804 N9 2.0 [id number] Timmy Dietz MD [place] [place] [address],[place] [address] 06/12/2024 11:51:37 06/12/2024 12:41:59 Abnormal uterine bleeding 3621614047 9100 N93.9 N92.0 [id number] Timmy Dietz MD [place] [place] [address],[place] [address] 06/19/2024 11:13:45 06/22/2024 08:41:43 Menorrhagia 259300188 N92.0 Polycystic ovary syndrome 294824531 E28.2 Health Concerns Section Related Observation LastModified by Organization Detai ls LastModified Time None Recorded Concern Status LastModified by Organization Details LastModified Time None Recorded Advance Directives Directive N: Payers Encounter Date Sequence Insurance Name Policy Number Policy Matos Covered Member ID Matos Member ID Guarantor Name 08/30/2023 1 [employer] [id number] Clayton Hodge [id number] Cee Polanco 09/03/2023 1 [employer] [id number] Clayton Hodge [id number] Cee Polanco 05/22/2024 1 [employer] [id number] Clayton [id number] Cee Polanco 06/12/2024 1 [employer] [id number] Clayton Hodge [id number] Cee Polanco 06/19/2024 1 [employer] [id number] Clayton [id number] Polanco Notes Date Note Type Note Provider Name and Address Organization Details Recorded Time 08/30/2023 text/html Annual GYNReport ed bypatient.History:n o gynecologic complaints Menstrual cycle:Normal menses Urinary symptoms:No hematuria Vulva:No genital lesion Vagina:Normal vaginal discharge Breast:No breast pain; No breast lump Current Contraception:Tubal ligation Sexual complaints:Pain during intercourse Psychological symptoms:Depression ;Anxiety Timmy Dietz MD [address], [place], [address], [facility] 08/30/2023 22:33:03 05/22/2024 text/html Annual GYNReport ed bypatient.History:n o gynecologic complaints Menstrual cycle:Normal menses Urinary symptoms:No hematuria; No incontinence Vulva:No genital lesion Vagina:Normal vaginal discharge Breast:No breast pain; No breast lump Current Contraception:Tubal ligation Sexual complaints:No sexual complaints; No pain during intercourse Menopausal Symptoms:No menopausal symptoms Psychological symptoms:No depression; No anxiety Preventive measures:Encourage self breast examination; Encourage regular exercise Timmy Dietz MD [address], [place], [address], [facility] 05/22/2024 15:47:37 06/19/2024 text/html This patient is a 24-year-old female presents for heavy vaginal bleeding. She has longstanding very heavy bleeding. Her menses are regular. However, they require double protection. Patient has accidents, getting blood on her bedding and clothing. Is affected work. She changes a pad or tampon every hour. She leaks blood around the pad and tampon. This bleeding has a profound impact on her quality of life and her activities of daily living. We discussed treatment options in detail. She has failed control pills, patches, rings. She has failed IUD. We agreed to move forward with the endometrial ablation and bilateral salpingectomy. We discussed abnormal uterine bleeding and amenorrhea. We discussed polycystic ovarian syndrome. We discussed the diagnosis. We discussed the underlying disease process. We discussed laboratory evaluation. We discussed her ultrasound and laboratory results. We discussed the prevention of endometrial cancer. We discussed protecting the endometrium and how that is carried out. We discussed treatment in the context of a desired . We discussed medical treatment. We discussed the risk associated with PCOS and long-term health outcomes. We agreed to treat with metformin, oral contraceptive pills, spironolactone. I spent over 40 minutes on the patient's care in total discussing in treating 2 very complex topics. Medications prescribed. We discussed the risks, benefits, and alternatives. She was informed of the [place] precautions and instructions. Timmy Diezt MD [address], [place], [address], [place] [facility] 06/20/2024 13:04:34 OBGyn Episode Ob Episode Information Episode Created Date Number of Fetuses Patient Bloodtype Patient rh Status Prepregnancy Weight lbs Domestic Partner Domestic Partner Phone Father Name Quotation Clerk Status 05/01/19 22 1 A Positive 188 CLOSED Fetus Data First Name Last Name Admitted to NICU Weight (g) Sex Living Outcome Pediatric Complications Fetus ID Race Codes Race Delivery Type Edmundo 3203.49 35 M true Full Term [id number] Primary Problems Problem Notes anesthesia consult 3rd tri w ith 10/13 pre-reg appt/ TSH/T4 WNL Problem Name Start Date End Date Resolution Snomed Code Not e Budd-Chiari syndrome 01232830 Maternal - neuro suggested delivery, did not make formal recommendation, patient prefers . Tachycardia [id number] cardiolo gy referral sent to [facility] cardiology - appt? Holter monitor on today - August 18, 2021. 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 Taiwo Calculation Initial Taiwo Date Initial Exam Date Initial Exam Provider Initial Ultrasound Date Last Menstrual Period Date Ultra Sound Weeks Gestation 11/14/2021 05/01/2021 04/05/2021 02/07/2021 9 Eighteen To Twenty Week Taiwo Update Ultra Sound Date Fundal Height At Umbil Quickening Date Ultra Sound Latest Weeks Gestation Final Taiwo Confirmed By Final Taiwo Confirmed Date Final Taiwo Date Ultra Sound Latest Days Gestation 0 [email or web address] 05/01/2021 11/09/19 22 0 Pre- Flowsheet Flowsheet Date 05/01/2021 Whitlock Score Blood Edema Fundus Height Fundus Units Glucose Ketones Leukocytes Nitrite Labor Signs Protein Cervic Dilation Cervic Effacement Cervic Station 12 Type Weight in lbs Pre/Post Dialysis Refused Weight 185.067181245913 BP Diastolic BP Location Tested BP Systolic BP Type 86 R arm 149 sitting Fetus Heart Rate Present A 150 Fetus Movement Comments this patient is a 20-year-ol d 1 at 12 weeks gestation. She presents for initial care. She has a Chiari malformation. She has seen MFM. MFM is recommending neurology consult. Neurology should tell us whether she can push for vaginal . Otherwise she will have delivery. Anesthesia can give us recommendations on regional anesthetic versus general. She is vaccinated, she was given recommendations on flu vaccine, she is allergic, and Tdap. We discussed care in detail. She return in 4 weeks for gender ultrasound and office visit. Flowsheet Date 05/26/2021 Whitlock Score Blood Edema Fundus Height Fundus Units Glucose Ketones Leukocytes Nitrite Labor Signs Protein Cervic Dilation Cervic Effacement Cervic Station Type Weight in lbs Pre/Post Dialysis Refused BP Diastolic BP Location Tested BP Systolic BP Type Fetus Heart Rate Present Fetus Movement Comments Flowsheet Date 05/26/2021 Whitlock Score Blood Edema Fundus Height Fundus Units Glucose Ketones Leukocytes Nitrite Labor Signs Protein Cervic Dilation Cervic Effacement Cervic Station 16 Type Weight in lbs Pre/Post Dialysis Refused Weight 180.624145478326 BP Diastolic BP Location Tested BP Systolic BP Type 83 R arm 121 sitting Fetus Heart Rate Present A 152 Fetus Movement Comments nausea vomiting, Zofran pres cribed, heart tones viewed on ultrasound, as gender ultrasound was performed. Flowsheet Date 06/29/2021 Whitlock Score Blood Edema Fundus Height Fundus Units Glucose Ketones Leukocytes Nitrite Labor Signs Protein Cervic Dilation Cervic Effacement Cervic Station Type Weight in lbs Pre/Post Dialysis Refused BP Diastolic BP Location Tested BP Systolic BP Type Fetus Heart Rate Present Fetus Movement Comments Flowsheet Date 06/29/2021 Whitlock Score Blood Edema Fundus Height Fundus Units Glucose Ketones Leukocytes Nitrite Labor Signs Protein Cervic Dilation Cervic Effacement Cervic Station 21 Type Weight in lbs Pre/Post Dialysis Refused Weight 183.392422384780 BP Diastolic BP Location Tested BP Systolic BP Type 83 R arm 137 sitting Fetus Heart Rate Present A 154 Fetus Movement Comments 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 Her neurologist has suggested that delivery would be more appropriate than attempting a vaginal in the intracranial pressure that goes along with the 2nd stage of labor. Flowsheet Date 07/21/2021 Whitlock Score Blood Edema Fundus Height Fundus Units Glucose Ketones Leukocytes Nitrite Labor Signs Protein Cervic Dilation Cervic Effacement Cervic Station neg trace 28 trace trace Type Weight in lbs Pre/Post Dialysis Refused Weight 188.813321236493 BP Diastolic BP Location Tested BP Systolic BP Type 80 116 Fetus Heart Rate Present A 150 Fetus Movement A Yes Comments DOing very well. MCNALLY minimal. Cardiology 08/16. GCT next visit. S>D, will order growth US if continues next visit. Flowsheet Date 08/18/2021 Whitlock Score Blood Edema Fundus Height Fundus Units Glucose Ketones Leukocytes Nitrite Labor Signs Protein Cervic Dilation Cervic Effacement Cervic Station Type Weight in lbs Pre/Post Dialysis Refused Weight 192.352964805131 BP Diastolic BP Location Tested BP Systolic BP Type 93 R arm 127 sitting Fetus Heart Rate Present Fetus Movement Comments Flowsheet Date 08/18/2021 Whitlock Score Blood Edema Fundus Height Fundus Units Glucose Ketones Leukocytes Nitrite Labor Signs Protein Cervic Dilation Cervic Effacement Cervic Station 28 Type Weight in lbs Pre/Post Dialysis Refused BP Diastolic BP Location Tested BP Systolic BP Type Fetus Heart Rate Present A 138 Fetus Movement Comments Holter monitor on today. has had numerous episodes of tachycardia during the monitoring. No symptoms. Cardiology to follow throughout the . Flowsheet Date 08/24/2021 Whitlock Score Blood Edema Fundus Height Fundus Units Glucose Ketones Leukocytes Nitrite Labor Signs Protein Cervic Dilation Cervic Effacement Cervic Station Type Weight in lbs Pre/Post Dialysis Refused Weight 192.072510660380 BP Diastolic BP Location Tested BP Systolic BP Type 75 118 Fetus Heart Rate Present Fetus Movement Comments Flowsheet Date 08/31/2021 Whitlock Score Blood Edema Fundus Height Fundus Units Glucose Ketones Leukocytes Nitrite Labor Signs Protein Cervic Dilation Cervic Effacement Cervic Station 33 Type Weight in lbs Pre/Post Dialysis Refused Weight 191.494098046664 BP Diastolic BP Location Tested BP Systolic BP Type 83 R arm 120 sitting Fetus Heart Rate Present A 131 Fetus Movement Comments Size bigger than dates, to o btain growth ultrasound. Flowsheet Date 09/12/2021 Whitlock Score Blood Edema Fundus Height Fundus Units Glucose Ketones Leukocytes Nitrite Labor Signs Protein Cervic Dilation Cervic Effacement Cervic Station Type Weight in lbs Pre/Post Dialysis Refused BP Diastolic BP Location Tested BP Systolic BP Type Fetus Heart Rate Present Fetus Movement Comments Flowsheet Date 09/12/2021 Whitlock Score Blood Edema Fundus Height Fundus Units Glucose Ketones Leukocytes Nitrite Labor Signs Protein Cervic Dilation Cervic Effacement Cervic Station neg none 34 none trace Type Weight in lbs Pre/Post Dialysis Refused Weight 192.804861110546 BP Diastolic BP Location Tested BP Systolic BP Type 78 121 Fetus Heart Rate Present A 140 Fetus Movement A Yes Comments Doing well. Went to L and D last week for pressure. Precautions given. Discussed third trimester symptoms. US today 49% Will do Tdap. Plan anesthesia consult with preregistration. Flowsheet Date 09/29/2021 Whitlock Score Blood Edema Fundus Height Fundus Units Glucose Ketones Leukocytes Nitrite Labor Signs Protein Cervic Dilation Cervic Effacement Cervic Station Type Weight in lbs Pre/Post Dialysis Refused Weight 192.047234439472 BP Diastolic BP Location Tested BP Systolic BP Type 82 R arm 128 sitting Fetus Heart Rate Present Fetus Movement A Yes Comments Migraines are more frequent, taking otc medications but are not helping. Has preadmission scheduled for October 13. She will have anesthesia consult then. Flowsheet Date 10/03/2021 Whitlock Score Blood Edema Fundus Height Fundus Units Glucose Ketones Leukocytes Nitrite Labor Signs Protein Cervic Dilation Cervic Effacement Cervic Station Type Weight in lbs Pre/Post Dialysis Refused Weight 193.29490847429 BP Diastolic BP Location Tested BP Systolic BP Type 85 136 Fetus Heart Rate Present Fetus Movement Comments Flowsheet Date 10/13/2021 Whitlock Score Blood Edema Fundus Height Fundus Units Glucose Ketones Leukocytes Nitrite Labor Signs Protein Cervic Dilation Cervic Effacement Cervic Station Type Weight in lbs Pre/Post Dialysis Refused Weight 195.579905108309 BP Diastolic BP Location Tested BP Systolic BP Type 90 R arm 147 sitting 94 L arm 145 sitting Fetus Heart Rate Present Fetus Movement Comments Migraines continue. Was seen at L&D recently. BP was elevated there as well. Look of blood pressures in L&D, elevated diastolics, several. One elevated systolic, rules in for gestational hypertension, to move her up to next week. Flowsheet Date 10/13/2021 Whitlock Score Blood Edema Fundus Height Fundus Units Glucose Ketones Leukocytes Nitrite Labor Signs Protein Cervic Dilation Cervic Effacement Cervic Station Type Weight in lbs Pre/Post Dialysis Refused BP Diastolic BP Location Tested BP Systolic BP Type Fetus Heart Rate Present Fetus Movement Comments Flowsheet Date 10/18/2021 Whitlock Score Blood Edema Fundus Height Fundus Units Glucose Ketones Leukocytes Nitrite Labor Signs Protein Cervic Dilation Cervic Effacement Cervic Station Type Weight in lbs Pre/Post Dialysis Refused BP Diastolic BP Location Tested BP Systolic BP Type Fetus Heart Rate Present Fetus Movement Comments Flowsheet Date 10/25/2021 Whitlock Score Blood Edema Fundus Height Fundus Units Glucose Ketones Leukocytes Nitrite Labor Signs Protein Cervic Dilation Cervic Effacement Cervic Station Type Weight in lbs Pre/Post Dialysis Refused Weight 174.13122735015 BP Diastolic BP Location Tested BP Systolic BP Type 102 R arm 163 sitting 99 L arm 135 sitting 100 R arm 138 sitting Fetus Heart Rate Present Fetus Movement Comments Menstrual History Last Menstrual Date Menses Monthly On Bcp Conception Prior Menses Frequency Hcg Plus Date Menarche Onset Age 1102/07/2021 Genetic Screening And Infection History Question Response Note Mental Retardation/Autism false Patient's Age Will Be 35 Years Or Older At Estim ated Date of Delivery false Thalassemia (Vietnamese, Citizen Of The [place], Mediterranean, Or Background): MCV < 80 false Neural Tube Defect (Meningomyelocele, Spina Bifi da, Or Anencephaly) false Congenital Heart Defect false Down Syndrome false Jerson-Sachs (eg, Amish, Cajun, Sammarinese-South Sudanese) f alse Wero Disease false Sickle Cell Disease Or Trait () false Hemophilia Or Other Blood Disorders false Muscular Dystrophy false Cystic Fibrosis false José Miguel's Chorea false Intellectual Disability/Autism false If Yes, Was Person Tested For Fragile X? false Other Inherited Genetic Or Chromosomal Disorder false Maternal Metabolic Disorder (eg, Type 1 Diabetes , PKU) false Patient Or Baby's Father Had A Child With Defects Not Listed Above false Recurrent Loss, Or A Stillbirth false Medications (including Suppl ements, Vitamins, Herbs, OTC Drugs), Illicit/Recreational Drugs, Alcohol false If Yes, Agent(s) And Strength/Dosage false Any Other Genetic History false Live With Someone With TB Or Exposed To TB false Patient Or Partner Has History Of Genital Herpes false Rash Or Viral Illness Since Last Menstrual Perio d false History Of STD, Gonorrhea, Chlamydia, HPV, Syphi lis false Other Infection History false History of HIV false History of Hepatitis false Prior GBS-infected child false Hemoglobinopathy Or Carrier false Other Structural Defect false Recent Travel History Outside of Country false Delivery Information Delivery Date Delivery Type Labor Anesthesia Weeks Gestation Incision Type Labor Labor Length Hrs Delivered By Post Complications Tubal Sterilization Discharge Date Comments 2 None Regional-Sp inal 37 Low Transvers e false Timmy Dietz MD ghtn. preeclamp lisa Discharge Information Feeding Method Contraceptive Method Maternal HG B and HCT Levels Ob Episode Information Episode Created Date Number of Fetuses Patient Bloodtype Patient rh Status Prepregnancy Weight lbs Domestic Partner Domestic Partner Phone Father Name Quotation Clerk Status 12/01/19 23 1 A Positive CLOSED Fetus Data First Name Last Name Admitted to NICU Weight (g) Sex Living Outcome Pediatric Complications Fetus ID Race Codes Race Delivery Type true 2976.69 75 F Prematur e 91370 Repeat Problems Problem Notes EIF faint [id number] nega tive 04/2021 Problem Name Start Date End Date Resolution Snomed Code Not e Female sterilization 21562643 Nausea and vomiting MEDICATION 84970465 Anemia 03/25/2023 MEDICATION [id number] 1 tab sl owfe daily Past history of section 05/27/2023 024018782 Chiari malformation 302673103 hemorrhage [id number] h/o Cholestasis 64491008 H/O Past history of pre-eclampsia [id number] asa Anxiety MEDICATION 64396554 sertralin e Taiwo Calculation Initial Taiwo Date Initial Exam Date Initial Exam Provider Initial Ultrasound Date Last Menstrual Period Date Ultra Sound Weeks Gestation 06/13/2023 11/30/2022 11/16/2022 10 Eighteen To Twenty Week Taiwo Update Ultra Sound Date Fundal Height At Umbil Quickening Date Ultra Sound Latest Weeks Gestation Final Taiwo Confirmed By Final Taiwo Confirmed Date Final Taiwo Date Ultra Sound Latest Days Gestation 0 [email or web address] 04/19/2023 06/13/19 24 0 Pre- Flowsheet Flowsheet Date 11/30/2022 Whitlock Score Blood Edema Fundus Height Fundus Units Glucose Ketones Leukocytes Nitrite Labor Signs Protein Cervic Dilation Cervic Effacement Cervic Station 12 Type Weight in lbs Pre/Post Dialysis Refused Weight 194.786151682578 BP Diastolic BP Location Tested BP Systolic BP Type 86 R arm 131 sitting Fetus Heart Rate Present A 156 Fetus Movement Comments This patient is a 22-year-ol d 2 para 1001 at 12 weeks gestation who presents for initial care. She has a striking obstetric history with history of preeclampsia, hemorrhage, and cholestasis we discussed these problems. She has a medical concern-Chiari malformation. This is not affecting her but has affected delivery. She had a previous . We intend repeat . She is doing well today. We reviewed care. She is vaccinated. We will begin routine care. anxiety, treating with sertraline, to start sertraline. Flowsheet Date 12/28/2022 Whitlock Score Blood Edema Fundus Height Fundus Units Glucose Ketones Leukocytes Nitrite Labor Signs Protein Cervic Dilation Cervic Effacement Cervic Station Type Weight in lbs Pre/Post Dialysis Refused BP Diastolic BP Location Tested BP Systolic BP Type Fetus Heart Rate Present Fetus Movement Comments Flowsheet Date 12/28/2022 Whitlock Score Blood Edema Fundus Height Fundus Units Glucose Ketones Leukocytes Nitrite Labor Signs Protein Cervic Dilation Cervic Effacement Cervic Station none trace Type Weight in lbs Pre/Post Dialysis Refused Weight 187.174001251104 BP Diastolic BP Location Tested BP Systolic BP Type 86 R arm 129 sitting Fetus Heart Rate Present Fetus Movement Comments no complaints, no problems, routine care, admission for nausea vomiting recently, that has resolved. She continues to lose weight. Will observe Reglan has been effective Flowsheet Date 01/09/2023 Whitlock Score Blood Edema Fundus Height Fundus Units Glucose Ketones Leukocytes Nitrite Labor Signs Protein Cervic Dilation Cervic Effacement Cervic Station Type Weight in lbs Pre/Post Dialysis Refused BP Diastolic BP Location Tested BP Systolic BP Type Fetus Heart Rate Present Fetus Movement Comments Flowsheet Date 01/25/2023 Whitlock Score Blood Edema Fundus Height Fundus Units Glucose Ketones Leukocytes Nitrite Labor Signs Protein Cervic Dilation Cervic Effacement Cervic Station Type Weight in lbs Pre/Post Dialysis Refused BP Diastolic BP Location Tested BP Systolic BP Type Fetus Heart Rate Present Fetus Movement Comments Flowsheet Date 02/01/2023 Whitlock Score Blood Edema Fundus Height Fundus Units Glucose Ketones Leukocytes Nitrite Labor Signs Protein Cervic Dilation Cervic Effacement Cervic Station none trace Type Weight in lbs Pre/Post Dialysis Refused Weight 190.385733830372 BP Diastolic BP Location Tested BP Systolic BP Type 76 R arm 142 sitting Fetus Heart Rate Present A 151 Fetus Movement Comments No complaints, no problems, routine care Flowsheet Date 03/01/2023 Whitlock Score Blood Edema Fundus Height Fundus Units Glucose Ketones Leukocytes Nitrite Labor Signs Protein Cervic Dilation Cervic Effacement Cervic Station Type Weight in lbs Pre/Post Dialysis Refused BP Diastolic BP Location Tested BP Systolic BP Type Fetus Heart Rate Present Fetus Movement Comments Flowsheet Date 03/01/2023 Whitlock Score Blood Edema Fundus Height Fundus Units Glucose Ketones Leukocytes Nitrite Labor Signs Protein Cervic Dilation Cervic Effacement Cervic Station Type Weight in lbs Pre/Post Dialysis Refused Weight 191.414446777847 BP Diastolic BP Location Tested BP Systolic BP Type 75 R arm 119 sitting Fetus Heart Rate Present Fetus Movement A Yes Comments pt. reports itching of hands and feet, increase in migraines. possible cholestasis - to get labs, normal growth ultrasound today, EIF is faint. Flowsheet Date 03/22/2023 Whitlock Score Blood Edema Fundus Height Fundus Units Glucose Ketones Leukocytes Nitrite Labor Signs Protein Cervic Dilation Cervic Effacement Cervic Station neg none 27 none trace Type Weight in lbs Pre/Post Dialysis Refused Weight 189.010248114443 BP Diastolic BP Location Tested BP Systolic BP Type 84 139 Fetus Heart Rate Present A 145 Present Fetus Movement A Yes Comments patient is having headaches, pain, discharge, nausea and vomiting. fioricet for mcnally, reviewed precautions GCT today, planning rpt c/s with salpingectomy, had hemorrhage last time, has seen [facility] videos, will disuss with DR. Dietz, will write plan for nursing staff f/u 2 weeks Flowsheet Date 03/22/2023 Whitlock Score Blood Edema Fundus Height Fundus Units Glucose Ketones Leukocytes Nitrite Labor Signs Protein Cervic Dilation Cervic Effacement Cervic Station Type Weight in lbs Pre/Post Dialysis Refused BP Diastolic BP Location Tested BP Systolic BP Type Fetus Heart Rate Present Fetus Movement Comments Flowsheet Date 04/05/2023 Whitlock Score Blood Edema Fundus Height Fundus Units Glucose Ketones Leukocytes Nitrite Labor Signs Protein Cervic Dilation Cervic Effacement Cervic Station Type Weight in lbs Pre/Post Dialysis Refused Weight 190.294531757913 BP Diastolic BP Location Tested BP Systolic BP Type 83 137 Fetus Heart Rate Present A 145 Fetus Movement A Yes Comments Good movement. No cram ping or bleeding. Found out she had a UTI at the hospital, had back pain and dysuria. Fioricet rx cancelled, will try to send out again. Will fit for maternity belt. Passed GCT. RTC 2 weeks Flowsheet Date 04/19/2023 Whitlock Score Blood Edema Fundus Height Fundus Units Glucose Ketones Leukocytes Nitrite Labor Signs Protein Cervic Dilation Cervic Effacement Cervic Station 33 Type Weight in lbs Pre/Post Dialysis Refused Weight 192.484755515397 BP Diastolic BP Location Tested BP Systolic BP Type 82 L arm 128 sitting Fetus Heart Rate Present A 144 Fetus Movement Comments growth ultrasound next visit for history of preeclampsia, to schedule and tubal, though complaints, Flowsheet Date 05/09/2023 Whitlock Score Blood Edema Fundus Height Fundus Units Glucose Ketones Leukocytes Nitrite Labor Signs Protein Cervic Dilation Cervic Effacement Cervic Station Type Weight in lbs Pre/Post Dialysis Refused BP Diastolic BP Location Tested BP Systolic BP Type Fetus Heart Rate Present Fetus Movement Comments Flowsheet Date 05/09/2023 Whitlock Score Blood Edema Fundus Height Fundus Units Glucose Ketones Leukocytes Nitrite Labor Signs Protein Cervic Dilation Cervic Effacement Cervic Station neg trace none trace Type Weight in lbs Pre/Post Dialysis Refused Weight 194.425868881930 BP Diastolic BP Location Tested BP Systolic BP Type 80 145 Fetus Heart Rate Present A 145 Fetus Movement A Yes Comments patient is having some heart burn, headache, swelling, and BH contractions. Elevated blood pressure today, good growth Flowsheet Date 05/17/2023 Whitlock Score Blood Edema Fundus Height Fundus Units Glucose Ketones Leukocytes Nitrite Labor Signs Protein Cervic Dilation Cervic Effacement Cervic Station neg trace none 1+ Type Weight in lbs Pre/Post Dialysis Refused Weight 194.524419389704 BP Diastolic BP Location Tested BP Systolic BP Type 95 L arm 164 sitting 86 154 Fetus Heart Rate Present Fetus Movement A Yes Comments 1 severe range pressure toda y, normal repeat or gestational hypertensive repeat, 2 send to labor and delivery for monitoring and laboratory evaluation. Flowsheet Date 05/27/2023 Whitlock Score Blood Edema Fundus Height Fundus Units Glucose Ketones Leukocytes Nitrite Labor Signs Protein Cervic Dilation Cervic Effacement Cervic Station Type Weight in lbs Pre/Post Dialysis Refused Weight 175.780422204530 BP Diastolic BP Location Tested BP Systolic BP Type 82 138 Fetus Heart Rate Present Fetus Movement Comments Menstrual History Last Menstrual Date Menses Monthly On Bcp Conception Prior Menses Frequency Hcg Plus Date Menarche Onset Age Genetic Screening And Infection History Question Response Note Mental Retardation/Autism false Patient's Age Will Be 35 Years Or Older At Estim ated Date of Delivery false Thalassemia (Vietnamese, Citizen Of The [place], Mediterranean, Or Background): MCV < 80 false Neural Tube Defect (Meningomyelocele, Spina Bifi da, Or Anencephaly) false Congenital Heart Defect false Down Syndrome false Jerson-Sachs (eg, Amish, Cajun, Sammarinese-South Sudanese) f alse Wero Disease false Sickle Cell Disease Or Trait () false Hemophilia Or Other Blood Disorders false Muscular Dystrophy false Cystic Fibrosis false [place]'s Chorea false Intellectual Disability/Autism false If Yes, Was Person Tested For Fragile X? false Other Inherited Genetic Or Chromosomal Disorder false Maternal Metabolic Disorder (eg, Type 1 Diabetes , PKU) false Patient Or Baby's Father Had A Child With Defects Not Listed Above false Recurrent Loss, Or A Stillbirth false Medications (including Suppl ements, Vitamins, Herbs, OTC Drugs), Illicit/Recreational Drugs, Alcohol false If Yes, Agent(s) And Strength/Dosage false Any Other Genetic History false Live With Someone With TB Or Exposed To TB false Patient Or Partner Has History Of Genital Herpes false Rash Or Viral Illness Since Last Menstrual Perio d false History Of STD, Gonorrhea, Chlamydia, HPV, Syphi lis false Other Infection History false History of HIV false History of Hepatitis false Prior GBS-infected child false Hemoglobinopathy Or Carrier false Other Structural Defect false Recent Travel History Outside of Country false Delivery Information Delivery Date Delivery Type Labor Anesthesia Weeks Gestation Incision Type Labor Labor Length Hrs Delivered By Post Complications Tubal Sterilization Discharge Date Comments 4 36.4 true Timmy Dietz MD true GHTN / severe preeclamp lisa Discharge Information Feeding Method Contraceptive Method Maternal HG B and HCT Levels
[2024-07-20 11:57] LABS: BEDSIDEPREGUCG Negative (Negative)
[2024-07-20] MEDS: SODIUM CHLORIDE 0.9% IV 1,000 ML 999 ML IV CONT (12:13)
[2024-07-20] MEDS: diphenhydrAMINE HCl INJ 50 MG/ML VIAL 25 MG IV PUSH (12:13)
[2024-07-20] MEDS: METOCLOPRAMIDE HCL INJ 10 MG/2 ML VIAL IV PUSH (12:13)
[2024-07-20] MEDS: KETOROLAC 15 MG/ML VIAL (*BKC) IV PUSH (12:13)
--- NOTE | 2024-07-20 12:14 | ED.HA ---
HPI - Headache General Chief Complaint: Headache Stated Complaint: migraine Time Seen by Provider: 07/20/24 11:08 Source: patient Mode of arrival: ambulatory Limitations: no limitations History of Present Illness HPI Narrative: This is a 24-year-old female that presents to the emergency department for a migraine headache. Reports longstanding history of migraines. She is not currently seeing a neurologist or on any preventative medications. Reports she has had a headache since yesterday, she has been taking unwk-eim-rkwlvus medications with little relief. She last took Tylenol this morning. Denies fever, vomiting, numbness, weakness, recent injuries. Related Data Allergies Allergy/AdvReac Type Severity Reaction Status Date / Time amoxicillin Allergy Severe Hives / Verified 07/20/24 10:18 Red Face Penicillins Allergy Severe Hives / Verified 07/20/24 10:18 Red Face Influenza Virus Vaccines Allergy Intermediate Egg Allergy Verified 07/20/24 10:18 sulfamethoxazole Allergy Intermediate THROAT Verified 07/20/24 10:18 SWELLING trimethoprim Allergy Intermediate THROAT Verified 07/20/24 10:18 SWELLING surgical glue Allergy Intermediate Hives Uncoded 07/20/24 10:18 Review of Systems Review of Systems: CONSTITUTIONAL: Denies fever EYES: Denies visual changes GASTROINTESTINAL: Denies vomiting NEUROLOGIC: Reports headache. Denies numbness, or weakness. All systems reviewed & are unremarkable except as noted in HPI and below PMFSH Past Medical History Medical History (Updated 07/20/24 @ 14:40 by Glo Irene PA-C) Nausea and vomiting Pre-eclampsia affecting childbirth Overweight (BMI 25.0-29.9) Depression Anxiety Asthma Chiari malformation decompression surgery Surgical History Surgical History H/O laparoscopy H/O craniotomy Hx of cholecystectomy Family History Family History (Updated 05/17/23 @ 13:47 by Jacqueline Goodwin RN) Father High cholesterol Hypertension Mother Gilbert syndrome High cholesterol Migraines Kidney stones Endometriosis Hypertension Mitral valve prolapse Cerebrovascular accident Cholelithiases Sibling Migraines Asthma Grandparent Pancreatic cancer Ovarian cancer Lung cancer Hypertension Kidney disease Grandparent No problems noted. Grandparent Cerebrovascular accident Social History Social History Smoking status: Never smoker Second hand tobacco smoke exposure: No Alcohol intake: current Alcohol use details: 1 PER MONTH Substance use: never Do You Feel Safe in your Home?: Yes Lack of Transportation: No Lack of Food: Never True Current Housing: I Have Housing Concerned About Future Housing: No Difficulty Paying Gas/Electric Bills: No Difficulty Paying for Meds: No Currently Unemployed: No Education: High School Diploma/GED Difficulty w/ Childcare or Family Care: No Living arrangements: with family Spiritual care concerns: No Exam Narrative: GENERAL: Well-appearing, well-nourished, and in no acute distress. HEAD: Normocephalic, atraumatic. EYES: PERRLA and EOMI. ENT: Nares clear, no rhinorrhea or epistaxis. Mucous membranes moist. Oropharynx without tonsillar hypertrophy exudate or other lesions. Bilateral TMs pearly johansen non-bulging NECK: Supple. No adenopathy or masses. Normal ROM CHEST: Clear to auscultation. No respiratory distress. No wheezes rales or rhonchi HEART: Regular rate and rhythm. No murmur heard. Normal peripheral pulses. EXTREMITIES: Normal range of motion. No edema. Strength equal in bilateral upper and lower extremities (5/5) SKIN: Warm, dry, no rash. NEURO: No focal deficits. Alert and oriented x3. Cranial nerves 2-12 grossly intact PSYCH: Normal mood and affect Course Course Emergency Course: patient reports relief of headache. Ready for discharge Vital Signs Vital signs: Vital Signs Temperature 97.9 F 07/20/24 10:21 Pulse Rate 90 07/20/24 10:21 Respiratory Rate 18 07/20/24 10:21 Blood Pressure 133/83 07/20/24 10:21 Pulse Oximetry 100 07/20/24 10:21 Oxygen Delivery Room Air 07/20/24 10:21 Temperature 97.9 F 07/20/24 10:21 Pulse Rate 90 07/20/24 10:21 Respiratory Rate 18 07/20/24 10:21 Blood Pressure 133/83 07/20/24 10:21 Pulse Oximetry 100 07/20/24 10:21 Oxygen Delivery Room Air 07/20/24 10:21 MDM - Headache MDM Narrative Medical decision making narrative: Patient presents to the emergency department for a migraine headache. Reports longstanding history of migraines. She is not currently seeing a neurologist or on any medications for this. She is afebrile and nontoxic appearing. She is neurologically intact. Her vitals are normal. She reports relief after IV fluids, Reglan, Benadryl, Toradol. Resting comfortably. Discharged in stable condition with neurology follow up Differential Diagnosis Differential diagnosis: Likely migraine, tension headache, headache and sinusitis Lab Data Attestation: I reviewed the patient's lab results. Labs: Lab Results 07/20/24 Range/Units 11:26 POC Urine HCG, Qual Negative (Negative) Critical Care Time Critical Care Time Critical Care Time: No Discharge Plan Discharge Clinical Impression: Headache Qualifiers: Headache type: unspecified Headache chronicity pattern: acute headache Intractability: not intractable Qualified Code(s): R51.9 - Headache, unspecified Patient Disposition: Home Condition: Improved Instructions: Migraine Headache (ED) Additional Instructions: Return to the emergency department if you experience fever, persistent vomiting, weakness, numbness, or any other symptoms that are concerning to you. Rest. Remain well hydrated. Igpp-che-fyckgin pain medication as needed Follow up with neurology Patient Language: Slovenian Prescriptions: No Action ibuprofen 600 mg tablet 600 mg PO QID PRN (Reason: pain) Qty: 30 0RF Follow-up/Referrals: Patricia Fuentes MD [Physician] - PHYSICIAN,CAD CAM PROGRAMMER [Primary Care Provider] -
--- OUTSIDE RECORDS SUMMARY | 2024-07-20 12:20 | XMS_ITS | Clinical Summary ---
Author Organization [facility] Address [address] [place] [address] Phone Care Team Providers Care Anglesmith Helper Name Role Phone Provider, None Primary Care [...] Diagnostic Radiology - [place] [address] [place] [address] Jael Knox APRN, EMILI Discharge Disposition: Discharged to home or Selfcare 06/26/2024 3:45 PM CDT Urgent Care Visit [facility] [place] [address] [place] [phone] Jael Knox APRN, EMILI Contusion of right [...] cm (5' 3 ) 04/24/2022 1:46 AM VICE PRESIDENT PLANNING Body Mass Index 35.43 04/24/2022 1:46 AM VICE PRESIDENT PLANNING Plan of Treatment Health Maintenance Due Date [...] David Ortiz M.D. KH: YUKI Report ID: [id number] Reading Location: [id number] Procedure Note David Ortiz MD - 06/26/2024 [...] David Ortiz M.D. KH: YUKI Report ID: [id number] Reading Location: [id number] IMPRESSION: No acute osseous abnormality. Jael Knox WINTER SPORTS MANAGER, APPEALS MANAGER IMG DIAGNOSTIC ORD ERABLES Final Result from Last 3 Months Insurance [place]ICAID [place] [facility] Care Teams Anglesmith Helper Relationship Specialty Start Date End Date Provider, None [place] PCP - General 06/26/24
--- OUTSIDE RECORDS SUMMARY | 2024-07-20 12:20 | XMS_ITS | Clinical Summary ---
Author Organization [facility] Address [address] [place] [address] Care Team Providers Care Paper Roller Name Role Phone Ivan Brand MD Primary Care Provider [phone] Source Comments [facility],non-owned Affiliates and Associated Physician Practices is amultiple site organization consisting of ambulatory clinics and hospital sitesin [place], [place], [place] and [place]. This disclosure is being madepursuant to the Care Everywhere program and may not contain all information available regarding this patient. Last updated 17.[facility] Allergies Active Allergy Reactions Criticality Noted Date [...] 08/16/2021 Overview (10/03/2023): cardiology referral sent to [facility] cardiology - appt? 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 prn Refills provided Inhaler technique reviewed Mom says she had allergic type reaction to influenza vaccine in past F/U 6 months Assessment & Plan (04/27/2015 12:11 PM SUPERVISOR LONG GOODS): Longstanding history of asthma which has been [...] school year F/U 3 months here at [place] Abdominal pain, generalized 2012 03/07/2020 Diarrhea 2012 [...] on file Legal Sex Female 5:39 AM SUPERVISOR LONG GOODS Gender Identity Not on file Sexual Orientation Not on file Last Filed Vital Signs Vital Sign Reading Time Taken Comments Blood Pressure 132/70 10/03/2023 3:11 PM CDT Pulse 117 06/22/2021 9:10 AM CDT Temperature 36.3 C (97.3 F) 06/22/2021 9:10 AM CDT Respiratory Rate 18 04/12/2017 10:14 AM SUPERVISOR LONG GOODS per pcp Oxygen Saturation 97% 06/22/2021 9:10 [...] complete this topic Insurance AETNA AETNA AETNA [facility] Advance Directives * Full Code (Latest Code Status on File) Date Activated Date Inactivated Comments 06/04/2016 11:10 AM 06/06/2016 11:06 AM Care Teams Paper Roller Relationship Specialty Start Date End [place] [phone] PCP - General Internal Medicine 06/20/18
--- OUTSIDE RECORDS SUMMARY | 2024-07-20 12:20 | XMS_ITS | Encounter Summary ---
Author Organization [facility] Address [address] [place] [address] Care Team Providers Care Environmental Services Technician Name Role Phone Esmer Begum MD Primary Care Provider [phone] Ivan Brand MD Primary Care Provider [phone] Encounter Details Date Type Department Care Team (Late st Contact Info) Description 06/19/2018 Lab Requisition [facility] Care DermPath Lab [address] [place] [phone] Kristen Oscar MD [address] [facility] [address] [place] [address] Social History Tobacco Use Types Packs/Day Years Used Date Smoking Tobacco: Passive Smo ke Exposure - Never Smoker Smokeless Tobacco: Never Alcohol Use Standard Drinks/Week Comments No 0 (1 standard drink = 0.6 oz pur e alcohol) Comments No Sex and Gender Information Value Date Recorded Sex Assigned at Not on file Legal Sex Female 5:39 AM BRICKLAYER TENDER Gender Identity Not on file Sexual Orientation [...] No 06/04/2016 9:15 PM CDT Sana Rutherford, STABLE MANAGER-ELECTRIC SPOT WELDER * Does person have difficulty dressing/bathing? Answer Date of Assessment Author No 06/04/2016 9:15 PM CDT Sana Rutherford, STABLE MANAGER-ELECTRIC SPOT WELDER * Does person have difficulty doing errands alone? Answer Date of Assessment Author No 06/04/2016 9:15 PM CDT Sana Rutherford, STABLE MANAGER-ELECTRIC SPOT WELDER documented as of this encounter Mental Status * Does person have difficulty concentrating/remembering/making decisions? Answer Entry Date Author No 06/04/2016 9:15 PM CDT Sana Rutherford, STABLE MANAGER-ELECTRIC SPOT WELDER documented in this encounter Plan of Treatment Not on file documented as of this encounter Procedures Procedure Name Priority Date/Time Associated Diagnosis Comments DERMATOPATHOLOGY Routine 06/18/2018 12:0 0 AM CDT documented in this encounter Results * DERMATOPATHOLOGY (06/18/2018 12:00 AM CDT) Case Report Dermatopathology Report Case: [id number] Authorizing Provider: Kristen Oscar MD Collected: 06/18/2018 12:00 AM Pathologist: Melissa Garcia MD Received: 06/19/2018 06:54 AM Specimen: Skin, left cheek 12:37 PM CDT DERMATOPATHOLOGY LABORATORY Final Diagnosis Specimen A. SKIN, left cheek: LENTIGINOUS MELANOCYTIC NEVUS, COMPOUND TYPE, IRRITATED (COMPOUND MELANOCYTIC NEVUS WITH ARCHITECTURAL DISORDER) (D22.39) 9 12:37 PM CDT DERMATOPATHOLOGY LABORATORY Clinical History R/O halo nevus. [place] bower papule with depia path surrounding. 9 12:37 PM CDT DERMATOPATHOLOGY LABORATORY Gross Description Specimen A: Received is one formalin filled container labeled with the patient's name and designated left cheek. The specimen consists of a shave measuring [id number]. Jar 0. 12:37 PM CDT DERMATOPATHOLOGY LABORATORY [...] characteristic determined by the Dermatopathology Laboratory at [facility], directed by Dr. Casey Francisco. These tests need not be, and therefore are not, approved by the [place] Food and Drug Administration. The tests are used for clinical purposes. Billing Codes Specimen Charges Stain Charges 03454 1 9 12:37 PM CDT DERMATOPATHOLOGY LABORATORY Embedded Images 12:37 PM CDT DERMATOPATHOLOGY LABORATORY Pathology/Cytolog y TISSUE SPECIMEN FROM SKIN / Unknown 06/18/2018 06/19/2018 6:54 AM CDT Kristen Oscar MD LAB - PATHOLOGY/CYTOLOGY ORD ERABLES Final Result DERMATOPATHOLOGY LABORATORY [facility] - Department of Dermatology [address] [place] [address], 5th [place] [address], [facility] [phone] documented in this encounter Visit Diagnoses Not on filedocumented in this encounter Care Teams Environmental Services Technician Relationship Specialty Start Date End Date Esmer Begum MD PCP - General Pediatrics 07/04/16 06/19/18 [place] [phone] PCP - General Internal Medicine 06/20/18 documented as of this encounter
== END 2024-07-20 14:43 | disposition home or self-care (01) ==
PROVIDERS: Emergency Provider Physician Assistant
DX: R51.9 Headache, unspecified (principal); F41.8 Other specified anxiety disorders; J45.909 Unspecified asthma, uncomplicated
CPT/HCPCS: 81025; 96361; 96374; 96375; 99284; J1200; J1885; J2765; J7030

== ENCOUNTER 2024-08-11 00:11 | Day surgery (SDC) | payer OTHER, SELFPAY ==
[2024-07-29 13:28] VITALS: BMI 34.4
--- NOTE | 2024-07-29 13:32 | SUR.PREOP ---
Report to the Outpatient Waiting Room, entrance under the green pavilion located off [facility], at time _0700_ on date _08/11/2024_. Planned Procedure Time: _0900_.? Time changes happen often and if your time is changed the preop area will call you the afternoon before. - You and your visitor will be asked to self-screen and do not enter if you have any COVID symptoms. Please call surgeon if you need to reschedule. - A mask is optional within the hospital at this time. Patients may have clear liquids (water, carbonated beverages, clear teas, apple juice) until 3 hours prior to surgery with a maximum of 20 ounces. - No food from midnight until time of surgery and no smoking, or chewing tobacco (or any form of nicotine). No chewing gum, candy or mints. - Infants may have breast milk until 4 hours before surgery, infant formula 6 hours prior to surgery. - Children will be allowed to drink immediately following surgery.? If applicable, please bring a bottle or sippy cup to assist with drinking. Juice, water, soda, and popsicles are readily available.? For infants on formula, please bring formula the day of surgery.? Pacifiers are allowed. Take only the following medications with a SIP of water on the morning of surgery: _NA_ DO NOT STOP ANY OF YOUR OTHER PRESCRIPTION MEDICATIONS PRIOR TO SURGERY EXCEPT THE FOLLOWING Hold all vitamins and supplements for 3 days per anesthesiologist. Medications to discontinue per physician _NA_ Date to take last dose_NA_ Please no make-up, nail turkmen, hairspray, perfume, deodorant, or body powder the day of surgery.? No jewelry (including any body piercings) or valuables the day of surgery, leave them at home.? Please take a shower or bath the night before, or the morning of, surgery with an antibacterial soap.? Wear comfortable, loose fitting clothing.? Children are encouraged to wear pajamas. - Jewelry must be removed prior to entering the operating room.? Rings and piercings that are not removed may be cut off. - The hospital will not accept responsibility for valuables.? - Please leave all valuables, including medications, at home the day of surgery. If you are going home after surgery, a licensed haul truck driver must drive you home.? - NO public transportation without another adult if you receive anesthesia. - We recommend that an adult stay with you for 24 hours following discharge. - We also recommend that you do not drive, make important decision, drink alcoholic beverages, or take any drugs that were not prescribed by your health care provider for at least 24 hours after your discharge time. Follow any additional instructions given to you from your surgeon. Telephone instructions given to _Cee_and asked if any additional questions and then verbalized understanding. Patient advised to call surgeon office or pre surgery nurse liaison [phone] if any additional questions.
--- OUTSIDE RECORDS SUMMARY | 2024-08-11 00:14 | XMS_ITS | Clinical Summary ---
Author Organization [facility] Address [address] [place] [address] Phone Care Team Providers Care Service Porter Name Role Phone Provider, None Primary Care [...] Shortness of Breath or Cough. 1 Active Active Problems No known active problems Encounters Date Type Department Care Team Description 06/26/2024 4:10 PM CDT Ancillary Procedure [facility] - Diagnostic Radiology - [place] [address] [place] [address] Jael Knox APRN, CNP Discharge Disposition: Discharged to home or Selfcare 06/26/2024 3:45 PM CDT Urgent Care Visit [facility] [place] [address] [place] [address] Jael Knox APRN, CNP Contusion of right foot, initial encounter (Primary [...] 02/27/2000 TDAP Vaccine 05/22/2023,,04/06/2019,06/06 Tuberculin Skin Test; Sandraifi ed Protein Derivative Solutiol 04/20/2019,04/06/2019 Varicella Vaccine [...] cm (5' 3 ) 04/24/2022 1:46 AM FISHERY DIVISION CHIEF Body Mass Index 35.43 04/24/2022 1:46 AM FISHERY DIVISION CHIEF Plan of Treatment Health Maintenance Due Date [...] 5:14 PM - Electronically signed by David MIRZA: YUKI Report ID: [id number] Reading Location: [id number] Procedure Note David Ortiz MD - 06/26/2024 [...] 5:14 PM - Electronically signed by David MIRZA: YUKI Report ID: [id number] Reading Location: [id number] IMPRESSION: No acute osseous abnormality. Jael Knox APRN, EMILI IMG DIAGNOSTIC ORD ERABLES Final Result from Last 3 Months Insurance [place]ICAID [place] [facility] Care Teams Service Porter Relationship Specialty Start Date End Date Provider, None [place] PCP - General 06/26/24
--- OUTSIDE RECORDS SUMMARY | 2024-08-11 00:14 | XMS_ITS | Encounter Summary ---
Author Organization [facility] Address [address] [facility] [place] [address] Care Team Providers Care Private Chef Name Role Phone Esmer Begum MD Primary Care Provider [phone] Ivan Brand MD Primary Care Provider [phone] Encounter Details Date Type Department Care Team (Late st Contact Info) Description 06/19/2018 Lab Requisition [facility] Care DermPath Lab [address] [facility] [place] [phone] Kristen Oscar MD [address] [facility] [address] [place] [address] Social History Tobacco Use Types Packs/Day Years Used Date Smoking Tobacco: Passive Smo ke Exposure - Never Smoker Smokeless Tobacco: Never Alcohol Use Standard Drinks/Week Comments No 0 (1 standard drink = 0.6 oz pur e alcohol) Comments No Sex and Gender Information Value Date Recorded Sex Assigned at Not on file Legal Sex Female 5:39 AM STEAM DRIER TENDER Gender Identity Not on file Sexual [...] No 06/04/2016 9:15 PM CDT Sana Rutherford, SET UP MECHANIC HEADING MACHINES-LEGISLATIVE CORRESPONDENT * Does person have difficulty dressing/bathing? Answer Date of Assessment Author No 06/04/2016 9:15 PM CDT Sana Rutherford, SET UP MECHANIC HEADING MACHINES-LEGISLATIVE CORRESPONDENT * Does person have difficulty doing errands alone? Answer Date of Assessment Author No 06/04/2016 9:15 PM CDT Sana Rutherford, SET UP MECHANIC HEADING MACHINES-LEGISLATIVE CORRESPONDENT documented as of this encounter Mental Status * Does person have difficulty concentrating/remembering/making decisions? Answer Entry Date Author No 06/04/2016 9:15 PM CDT Sana Rutherford, SET UP MECHANIC HEADING MACHINES-LEGISLATIVE CORRESPONDENT documented in this encounter Plan of Treatment Not on file documented as of this encounter Procedures Procedure Name Priority Date/Time Associated Diagnosis Comments DERMATOPATHOLOGY Routine 06/18/2018 12:0 0 AM CDT documented in this encounter Results * DERMATOPATHOLOGY (06/18/2018 12:00 AM CDT) Case Report Dermatopathology Report Case: [id number] Authorizing Provider: Kristen Oscar MD Collected: 06/18/2018 12:00 AM Pathologist: Melissa Garcia MD Received: 06/19/2018 06:54 AM Specimen: Skin, left cheek 12:37 PM CDT DERMATOPATHOLOGY LABORATORY Final Diagnosis Specimen A. SKIN, left cheek: LENTIGINOUS MELANOCYTIC NEVUS, COMPOUND TYPE, IRRITATED (COMPOUND MELANOCYTIC NEVUS WITH ARCHITECTURAL DISORDER) (D22.39) 9 12:37 PM CDT DERMATOPATHOLOGY LABORATORY at 1237 CDT Clinical History R/O halo nevus. [place] bower papule with depia path surrounding. 9 12:37 PM CDT DERMATOPATHOLOGY LABORATORY Gross Description Specimen A: Received is one formalin filled container labeled with the patient's name and designated left cheek. The specimen consists of a shave measuring [id number]. Jar 0. 12:37 PM CDT DERMATOPATHOLOGY LABORATORY [...] characteristic determined by the Dermatopathology Laboratory at [facility], directed by Dr. Casey Francisco. These tests need not be, and therefore are not, approved by the [place] Food and Drug Administration. The tests are used for clinical purposes. Billing Codes Specimen Charges Stain Charges 28293 1 9 12:37 PM CDT DERMATOPATHOLOGY LABORATORY Embedded Images 12:37 PM CDT DERMATOPATHOLOGY LABORATORY Pathology/Cytolog y TISSUE SPECIMEN FROM SKIN / Unknown 06/18/2018 06/19/2018 6:54 AM CDT Kristen Oscar MD LAB - PATHOLOGY/CYTOLOGY ORD ERABLES Final Result DERMATOPATHOLOGY LABORATORY [facility] - Department of Dermatology [address] [place] [address], 5th [place] [address], [facility] [phone] documented in this encounter Visit Diagnoses Not on filedocumented in this encounter Care Teams Private Chef Relationship Specialty Start Date End Date Esmer Begum MD PCP - General Pediatrics 07/04/16 06/19/18 [place] [id number] PCP - General Internal Medicine 06/20/18 documented as of this encounter
--- OUTSIDE RECORDS SUMMARY | 2024-08-11 00:14 | XMS_ITS | Clinical Summary ---
Author Organization [facility] [employer] Address [address] [place] [address] Care Team Providers Care Demi Chef Name Role Phone Ivan Brand MD Primary Care Provider [phone] Source Comments [facility] [employer],non-owned Affiliates and Associated Physician Practices is amultiple site organization consisting of ambulatory clinics and hospital sitesin [place], [place], [place] and [place]. This disclosure is being madepursuant to the Care Everywhere program and may not contain all information available regarding this patient. Last updated 17.[facility] [employer] Allergies Active Allergy Reactions Criticality Noted Date [...] 08/16/2021 Overview (10/03/2023): cardiology referral sent to [facility] cardiology - appt? Holter monitor on today [...] this can sometimes worsen headaches in the vermin exterminator. 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 Refills provided Inhaler technique reviewed Mom says she had allergic type reaction to influenza vaccine in past F/U 6 months Assessment & Plan (04/27/2015 12:11 PM DIPLOMA MAKER): Longstanding history of asthma which has been [...] school year F/U 3 months here at [place] Abdominal pain, generalized 2012 03/07/2020 Diarrhea 2012 [...] on file Legal Sex Female 5:39 AM DIPLOMA MAKER Gender Identity Not on file Sexual Orientation Not on file Last Filed Vital Signs Vital Sign Reading Time Taken Comments Blood Pressure 132/70 10/03/2023 3:11 PM CDT Pulse 117 06/22/2021 9:10 AM CDT Temperature 36.3 C (97.3 F) 06/22/2021 9:10 AM CDT Respiratory Rate 18 04/12/2017 10:14 AM DIPLOMA MAKER per pcp Oxygen Saturation 97% 06/22/2021 9:10 [...] complete this topic Insurance AETNA AETNA AETNA [facility] Advance Directives * Full Code (Latest Code Status on File) Date Activated Date Inactivated Comments 06/04/2016 11:10 AM 06/06/2016 11:06 AM Care Teams Demi Chef Relationship Specialty Start Date End [place] [id number] PCP - General Internal Medicine 06/20/18
[2024-08-11] MEDS: LACTATED RINGERS 1,000 ML 30 ML IV CONT (07:50)
[2024-08-11] MEDS: ACETAMINOPHEN 500 MG TABLET 1000 MG PO (08:00)
[2024-08-11 08:02] VITALS: BP 119/89; PULSE 95; RESP 16; TEMP 36.6; O2SAT 99; BMI 34.2
[2024-08-11 08:05] LABS: BEDSIDEPREGUCG Negative (Negative)
--- NOTE | 2024-08-11 08:07 | WPDANESEPPF ---
Anes - Initial Pre Proc Eval Procedure: Operation Date: 08/11/24 09:30 Proposed Procedures p Hysteroscopy, Gina Endometrial Ablation - Timmy Dietz MD Date/Time: 08/11/24 08:07 Surgeon: Timmy Dietz MD Pre Op Diagnosis: menorrhagia Patient Data Age: 24 Gender: F Height: 1.63 m Weight: 90.6 kg Last Vital Signs Temp 98 F 08/11/24 08:02 Pulse 95 08/11/24 08:02 Resp 16 08/11/24 08:02 BP 119/89 08/11/24 08:02 Pulse Ox 99 08/11/24 08:02 O2 Del Method Room Air 08/11/24 08:02 Allergies Allergy/AdvReac Type Severity Reaction Status Date / Time amoxicillin Allergy Severe Hives / Verified 08/11/24 07:58 Red Face Penicillins Allergy Severe Hives / Verified 08/11/24 07:58 Red Face Influenza Virus Vaccines Allergy Intermediate Egg Allergy Verified 08/11/24 07:58 sulfamethoxazole Allergy Intermediate THROAT Verified 08/11/24 07:58 SWELLING trimethoprim Allergy Intermediate THROAT Verified 08/11/24 07:58 SWELLING surgical glue Allergy Intermediate Hives Uncoded 07/29/24 13:22 Home Medications ?Medication ?Instructions ?Recorded ?Confirmed ?Type metformin 500 mg tablet 500 mg PO BID 07/29/24 08/11/24 History norethindrone 1 mg-ethinyl 1 tablet PO DAILY 07/29/24 08/11/24 History estradiol 20 mcg (21)-iron 75 mg (7) tablet (Blisovi Fe 04/06 (28)) spironolactone 100 mg tablet 100 mg PO DAILY 07/29/24 08/11/24 History Laboratory Tests 08/11/24 08:02 POC Urine HCG, Qual Negative (Negative) Patient hx anesthesia problems: post op nausea/vomiting Family hx anesthesia problems: none Results Review: All pre-operative results and documents have been reviewed as part of the pre-operative evaluation. [facility] Past Medical History Medical History Nausea and vomiting Pre-eclampsia affecting childbirth Overweight (BMI 25.0-29.9) Depression Anxiety Asthma Chiari malformation decompression surgery Surgical History Surgical History H/O laparoscopy H/O craniotomy Hx of cholecystectomy Family History Family History Father High cholesterol Hypertension Mother Gilbert syndrome High cholesterol Migraines Kidney stones Endometriosis Hypertension Mitral valve prolapse Cerebrovascular accident Cholelithiases Sibling Migraines Asthma Grandparent Pancreatic cancer Ovarian cancer Lung cancer Hypertension Kidney disease Grandparent No problems noted. Grandparent Cerebrovascular accident Social History Social History Smoking status: Never smoker Second hand tobacco smoke exposure: No Alcohol intake: current Alcohol use details: OCCASIONALLY Substance use: never Substance use type: does not use Do You Feel Safe in your Home?: Yes Lack of Transportation: No Lack of Food: Never True Current Housing: I Have Housing Concerned About Future Housing: No Difficulty Paying Gas/Electric Bills: No Difficulty Paying for Meds: No Currently Unemployed: No Education: High School Diploma/GED Difficulty w/ Childcare or Family Care: No Living arrangements: with family Additional living arrangements comments: and children Spiritual care concerns: No Anes - Eval Final PreProcedure Day of Procedure 08/11/24 08:07 Patient weight: obese Lungs: normal air movement Airway: Mallampati scale class II Neurological: alert and oriented Last oral intake: >/= 8 hours ASA classification: II Emergent: no Anesthetic plan: proceed Anesthesia type and monitoring: general GIVS and standard monitoring Results Review: All pre-operative results and documents have been reviewed as part of the pre-operative evaluation. BMI 34, asthma/anxiety, asthma stable for many years. Hx PCOS and chiari malformation operative tx at 16 yo w removal of C1/2 w good results. Informed Consent: The patient's anesthetic plan and its attendant risks and benefits were discussed with the patient/family/POA. Questions were solicited and answers provided to the satisfaction of the patient/family/POA.
--- NOTE | 2024-08-11 08:11 | PM.IMHP ---
H&P: HPI History of Present Illness Date/Time: 08/11/24 08:11 Chief Complaint: Heavy vaginal bleeding Narrative: This patient is a 24-year-old female with severe menorrhagia. We have agreed to perform endometrial ablation with hysteroscopy and laparoscopic bilateral salpingectomy. She understands risks, benefits, and alternatives. She has completed the informed consent process is ready to proceed. The patient understands the details of the procedure. The procedure has been explained in detail. She understands the risks. She understands that injuries may occur that result in hospitalization, more surgery, and severe illness. She understands risk of hemorrhage and infection. She denies any chest pain or shortness of breath. She denies any nausea, vomiting, fever, chills. Review of Systems Review of Systems: All systems reviewed & are unremarkable except as noted in HPI and below Constitutional: Constitutional: Denies chills, Denies fatigue, Denies fever(s) and Denies weakness Eyes: Eyes: Denies blurry vision, Denies change in vision, Denies loss of peripheral vision, Denies loss of vision, Denies other visual disturbances and Denies eye pain ENT: Denies vertigo, Denies dizziness, Denies hearing loss, Denies mouth pain, Denies nasal obstruction, Denies neck mass and Denies neck pain Cardiovascular: Cardiovascular: Denies chest pain, Denies diaphoresis, Denies syncope, Denies leg edema and Denies dyspnea Respiratory: Respiratory: Denies chest congestion, Denies cough, Denies hemoptysis, Denies dyspnea and Denies wheezing Gastrointestinal: Gastrointestinal: Denies abdominal pain, Denies constipation, Denies diarrhea, Denies nausea and Denies vomiting Genitourinary: Genitourinary: Denies hematuria, Denies change in libido, Denies nocturia, Denies genital lesions, Denies flank pain and Denies urinary urgency Musculoskeletal: Musculoskeletal: Denies abnormal gait, Denies back pain, Denies myalgias, Denies arthralgias, Denies joint swelling, Denies muscle weakness and Denies neck pain Integumentary/Breasts: Skin/Breast: Denies swelling, Denies breast pain, Denies breast mass, Denies dry skin, Denies nipple discharge, Denies unusual bruising and Denies jaundice Neurologic: Denies Neuro-related abnormal movements, Denies Abnormal speech present, Denies abnormal gait, Denies behavioral changes, Denies confusion, Denies vertigo, Denies dizziness, Denies syncope, Denies loss of vision, Denies memory loss, Denies convulsions and Denies weakness Psychiatric: Psychiatric: Denies abnormal sleep pattern, Denies behavioral changes, Denies change in libido, Denies confusion, Denies depression, Denies anhedonia and Denies memory loss Endocrine: Endocrine: Reports no additional endocrine complaints, Denies change in libido and Denies fatigue Hematologic/Lymphatic: Hematologic/Lymphatic: Reports no additional hematologic/lymphatic complaints Allergic/Immunologic: Allergic/Immunologic: Reports no additional allergic/immunologic complaints and Denies wheezing PMFSH Past Medical History Medical History Nausea and vomiting Pre-eclampsia affecting childbirth Overweight (BMI 25.0-29.9) Depression Anxiety Asthma Chiari malformation decompression surgery Surgical History Surgical History H/O laparoscopy H/O craniotomy Hx of cholecystectomy Family History Family History Father High cholesterol Hypertension Mother Gilbert syndrome High cholesterol Migraines Kidney stones Endometriosis Hypertension Mitral valve prolapse Cerebrovascular accident Cholelithiases Sibling Migraines Asthma Grandparent Pancreatic cancer Ovarian cancer Lung cancer Hypertension Kidney disease Grandparent No problems noted. Grandparent Cerebrovascular accident Social History Social History Smoking status: Never smoker Second hand tobacco smoke exposure: No Alcohol intake: current Alcohol use details: OCCASIONALLY Substance use: never Substance use type: does not use Do You Feel Safe in your Home?: Yes Lack of Transportation: No Lack of Food: Never True Current Housing: I Have Housing Concerned About Future Housing: No Difficulty Paying Gas/Electric Bills: No Difficulty Paying for Meds: No Currently Unemployed: No Education: High School Diploma/GED Difficulty w/ Childcare or Family Care: No Living arrangements: with family Additional living arrangements comments: and children Spiritual care concerns: No Meds Home Medications and Allergies Home Medications ?Medication ?Instructions ?Recorded ?Confirmed ?Type metformin 500 mg tablet 500 mg PO BID 07/29/24 08/11/24 History norethindrone 1 mg-ethinyl 1 tablet PO DAILY 07/29/24 08/11/24 History estradiol 20 mcg (21)-iron 75 mg (7) tablet (Blisovi Fe 04/06 (28)) spironolactone 100 mg tablet 100 mg PO DAILY 07/29/24 08/11/24 History Allergies Allergy/AdvReac Type Severity Reaction Status Date / Time amoxicillin Allergy Severe Hives / Verified 08/11/24 07:58 Red Face Penicillins Allergy Severe Hives / Verified 08/11/24 07:58 Red Face Influenza Virus Vaccines Allergy Intermediate Egg Allergy Verified 08/11/24 07:58 sulfamethoxazole Allergy Intermediate THROAT Verified 08/11/24 07:58 SWELLING trimethoprim Allergy Intermediate THROAT Verified 08/11/24 07:58 SWELLING surgical glue Allergy Intermediate Hives Uncoded 07/29/24 13:22 Vital Signs Vital Signs - 24 hr 08/11/24 08:02 Temperature 98 F Pulse Rate 95 Respiratory Rate 16 Blood Pressure 119/89 Pulse Oximetry 99 Oxygen Delivery Room Air Exam Const: General: cooperative, healthy appearing, comfortable and no acute distress Orientation/consciousness: oriented to person, oriented to place and oriented to time HENMT: Head: normal to inspection Ears: external ears normal Face/Nose/Sinus: Normal external nose present and normal facial exam Face and sinus: normal facial exam Eyes: General: appearance normal, both eyes and all related structures Neck: Neck: normal visual inspection, trachea midline and supple Resp: Auscultation: clear to auscultation bilaterally, no crackles, no rales, no rhonchi and no wheezes Cardio: Rate: regular rate Rhythm: regular rhythm Heart sounds: no click, no murmurs and no rubs GI: GI Palp: No abdominal tenderness, No Soft to palpation, No Tenderness to palpation present (GI) and No Palpable mass present Auscultation: normal bowel sounds Skin: General skin exam: normal color and no rashes or lesions noted Neuro: General: oriented to person, oriented to place and oriented to time Extrem: General: normal to inspection, no joint enlargement, no clubbing, cyanosis or edema, no pedal edema and no calf tenderness Psych: Appearance: grossly normal Mental Status: mental status grossly normal Speech and movement: Normal speech and movement present Assessment and Plan Assessment and plan (1) Menorrhagia: Code(s): N92.0 - Excessive and frequent menstruation with regular cycle Status: Acute (2) Unwanted fertility: Code(s): Z30.09 - Encounter for other general counseling and advice on contraception Status: Acute Plan This patient is a 24-year-old female with severe menorrhagia. We have agreed to perform endometrial ablation with hysteroscopy and laparoscopic bilateral salpingectomy. She understands risks, benefits, and alternatives. She has completed the informed consent process is ready to proceed.
--- NOTE | 2024-08-11 08:17 | WPDHPUPDATE1 ---
History and Physical Update Update Date/Time: 08/11/24 08:17 History and Physical has been reviewed, including an updated exam of the patient. There are NO changes in the patient's condition. Risks, benefits, and alternatives have been discussed and questions answered. Patient agrees to proceed with procedure.
[2024-08-11 09:05] VITALS: BP 110/71; PULSE 99; RESP 14; O2SAT 97
--- NOTE | 2024-08-11 09:22 | W.PM.PROC2 ---
Procedure Note - Detailed Date of Procedure 08/11/24 Pre-op Diagnosis menorrhagia Post-op Diagnosis Same Procedure Performed endometrial ablation with hysteroscopy d&c Surgeon Timmy Dietz MD Anesthesia MAC Indications Severe menorrhagia Findings Normal vulva vagina and cervix. Normal endometrium. Description of Procedure The patient was taken to the operating room. She was prepped and draped in the dorsal lithotomy position after induction of mac anesthesia. A speculum was placed in the vagina. Cervix grasped with a tenaculum. The cervix was dilated to about 1 cm. The hysteroscope was inserted. The above findings were noted. Endometrial curettage was performed with a medium-size curette. All surfaces of the endometrium were affected by the curettage. The specimens were collected and sent to pathology. Measurements were taken of the uterus and cervix. The uterine length was then entered into the hand piece of the Gina device. The device was inserted into the intrauterine cavity. The array of the device was expanded. The balloon cuff was inflated. A good seal was achieved. The energy and safety cycles were initiated and completed. The array was collapsed and the instrument was withdrawn after deflating the balloon cuff. Hysteroscope was reinserted. Above findings were noted. The hysteroscope was removed. The patient tolerated the procedure well. The speculum and tenaculum were removed. She was taken to recovery in stable condition. Sponge lap and needle counts were correct x2. Estimated Blood Loss 15 Pathology Yes Complications No immediate complications Condition Stable Disposition Same day
[2024-08-11 09:35] VITALS: BP 126/67; PULSE 75
[2024-08-11] MEDS: ONDANSETRON INJ 4 MG/2 ML VIAL IV PUSH (09:50)
[2024-08-11 10:05] VITALS: BP 128/74; PULSE 68
[2024-08-11] MEDS: oxyCODONE HCL (*CRX) 5 MG TAB IR PO (10:07)
[2024-08-11 10:25] VITALS: BP 111/69; PULSE 68
== END 2024-08-11 10:37 | disposition home or self-care (01) ==
PROVIDERS: Visit Provider Obstetrics & Gynecology
PROC: 0U5B8ZZ Destruction of Endometrium, Via Natural or Artificial Opening Endoscopic (ICD-10-PCS; CPT 58563; principal; 2024-08-11 09:30)
DX: N92.0 Excessive and frequent menstruation with regular cycle (principal); E28.2 Polycystic ovarian syndrome; J45.909 Unspecified asthma, uncomplicated; F32.A Depression, unspecified; F41.9 Anxiety disorder, unspecified; E66.9 Obesity, unspecified; Z68.34 Body mass index [BMI] 34.0-34.9, adult; Z79.84 Long term (current) use of oral hypoglycemic drugs; Z98.890 Other specified postprocedural states; Z90.49 Acquired absence of other specified parts of digestive tract; Z87.798 Personal history of other (corrected) congenital malformations; Z80.0 Family history of malignant neoplasm of digestive organs; Z80.41 Family history of malignant neoplasm of ovary; Z80.1 Family history of malignant neoplasm of trachea, bronchus and lung; Z82.49 Family history of ischemic heart disease and other diseases of the circulatory system
CPT/HCPCS: 58563; A9270; J2003; J2250; J2405; J2704; J3010; J7120

== ENCOUNTER 2024-11-04 12:25 | Outpatient (CLI) | payer OTHER, SELFPAY ==
--- OUTSIDE RECORDS SUMMARY | 2024-11-04 12:30 | XMS_ITS | Clinical Summary ---
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
== END 2024-11-04 12:26 | disposition home or self-care (01) ==
LOC: ANHSURGERY 12:28
PROVIDERS: Visit Provider Obstetrics & Gynecology
DX: R10.2 Pelvic and perineal pain (principal)
CPT/HCPCS: 36415; 86850; 86900; 86901

== ENCOUNTER 2024-11-11 01:12 | Day surgery (SDC) | payer OTHER, SELFPAY ==
[2024-11-02 08:29] VITALS: BMI 33.6
--- NOTE | 2024-11-02 08:48 | SUR.PREOP ---
Report to the Outpatient Waiting Room, entrance under the green pavilion located off [facility], at time 0830 on date 11/11/24. Planned Procedure Time: 1030.? Time changes happen often and if your time is changed the preop area will call you the afternoon before. - You and your visitor will be asked to self-screen and do not enter if you have any COVID symptoms. Please call surgeon if you need to reschedule. - A mask is optional within the hospital at this time. Patients may have clear liquids (water, carbonated beverages, clear teas, apple juice) until 3 hours prior to surgery with a maximum of 20 ounces. - No food from midnight until time of surgery and no smoking, or chewing tobacco (or any form of nicotine). No chewing gum, candy or mints. Take only the following medications with a SIP of water on the morning of surgery: N/A DO NOT STOP ANY OF YOUR OTHER PRESCRIPTION MEDICATIONS PRIOR TO SURGERY EXCEPT THE FOLLOWING Hold all vitamins and supplements for 3 days per anesthesiologist. Medications to discontinue per physician N/A Date to take last dose N/A Please no make-up, nail thai, hairspray, perfume, deodorant, or body powder the day of surgery.? No jewelry (including any body piercings) or valuables the day of surgery, leave them at home.? Please take a shower or bath the night before, or the morning of, surgery with an antibacterial soap.? Wear comfortable, loose fitting clothing.? Children are encouraged to wear pajamas. - Jewelry must be removed prior to entering the operating room.? Rings and piercings that are not removed may be cut off. - The hospital will not accept responsibility for valuables.? - Please leave all valuables, including medications, at home the day of surgery. If you are going home after surgery, a licensed hire car driver must drive you home.? - NO public transportation without another adult if you receive anesthesia. - We recommend that an adult stay with you for 24 hours following discharge. - We also recommend that you do not drive, make important decision, drink alcoholic beverages, or take any drugs that were not prescribed by your health care provider for at least 24 hours after your discharge time. Follow any additional instructions given to you from your surgeon. Telephone instructions given to SERENA DOMINGUEZ and asked if any additional questions and then verbalized understanding. Patient advised to call surgeon office or pre surgery nurse liaison [phone] if any additional questions.
[2024-11-11] VITALS (9 sets, daily range): BP systolic 110–160; BP diastolic 68–109; PULSE 77–99; RESP 16–24; TEMP 36.5–36.8; O2SAT 95–100
[2024-11-11 08:51] LABS: BEDSIDEPREGUCG Negative (Negative)
[2024-11-11] MEDS: LACTATED RINGERS 1,000 ML 30 ML IV CONT ×3 (09:15→13:23)
[2024-11-11 09:34] LABS: Anion Gap 8 mmol/L (4-12); Blood Urea Nitrogen 9 mg/dL (7-17); Calcium 9.4 mg/dL (8.4-10.2); Carbon Dioxide 22 mmol/L (22-30); Chloride 106 mmol/L (98-107); Estimated CRCL calculation 119 ml/min; Estimated Glomerular Filt Rate > 60; Glucose 101 mg/dL (65-110); Potassium 4.2 mmol/L (3.4-5.0); Sodium 136 mmol/L (137-145)
[2024-11-11] MEDS: KETOROLAC 15 MG/ML VIAL (*BKC) IV PUSH (09:55)
[2024-11-11] MEDS: ACETAMINOPHEN 500 MG TABLET 1000 MG PO ×3 (09:55→23:05)
[2024-11-11] MEDS: SCOPOLAMINE 1 MG PATCH 1 PATCH TRANSDERM (09:59)
--- NOTE | 2024-11-11 10:19 | WPDHPUPDATE1 ---
History and Physical Update Update Date/Time: 11/11/24 10:19 History and Physical has been reviewed, including an updated exam of the patient. There are NO changes in the patient's condition. Risks, benefits, and alternatives have been discussed and questions answered. Patient agrees to proceed with procedure.
--- NOTE | 2024-11-11 10:29 | WPDANESEPPF ---
Anes - Initial Pre Proc Eval Procedure: Operation Date: 11/11/24 10:30 Proposed Procedures p Robotic Assisted Total Hysterectomy - Timmy Dietz MD Date/Time: 11/11/24 10:29 Surgeon: Timmy Dietz MD Pre Op Diagnosis: pelvic pain Patient Data Age: 24 Gender: F Height: 1.6 m Weight: 88.1 kg Last Vital Signs Temp 36.5 C 11/11/24 08:37 Pulse 87 11/11/24 08:37 Resp 16 11/11/24 08:37 BP 138/90 11/11/24 08:37 Pulse Ox 100 11/11/24 08:37 O2 Del Method Room Air 11/11/24 08:37 Allergies Allergy/AdvReac Type Severity Reaction Status Date / Time amoxicillin Allergy Severe Hives / Verified 11/11/24 08:44 Red Face Penicillins Allergy Severe Hives / Verified 11/11/24 08:44 Red Face Influenza Virus Vaccines Allergy Intermediate Egg Allergy Verified 11/11/24 08:44 sulfamethoxazole Allergy Intermediate THROAT Verified 11/11/24 08:44 SWELLING trimethoprim Allergy Intermediate THROAT Verified 11/11/24 08:44 SWELLING surgical glue Allergy Intermediate Hives Uncoded 11/11/24 08:44 Home Medications ?Medication ?Instructions ?Recorded ?Confirmed ?Type metformin 500 mg tablet 500 mg PO BID 07/29/24 11/11/24 History norethindrone 1 mg-ethinyl 1 tablet PO DAILY 07/29/24 11/11/24 History estradiol 20 mcg (21)-iron 75 mg (7) tablet (Blisovi Fe 04/06 (28)) spironolactone 100 mg tablet 100 mg PO DAILY 07/29/24 11/11/24 History Laboratory Tests 11/11/24 11/11/24 08:47 09:13 Sodium 136 L mmol/L (137-145) Potassium 4.2 mmol/L (3.4-5.0) Chloride 106 mmol/L (98-107) Carbon Dioxide 22 mmol/L (22-30) Anion Gap 8 mmol/L (4-12) BUN 9 D mg/dL (7-17) Creatinine 0.65 L mg/dL (0.7-1.0) Estim Creat Clear Calc 119 ml/min Estimated GFR > 60 (59 - ) Glucose 101 mg/dL (65-110) Calcium 9.4 mg/dL (8.4-10.2) POC Urine HCG, Qual Negative (Negative) Patient hx anesthesia problems: post op nausea/vomiting Family hx anesthesia problems: none Results Review: All pre-operative results and documents have been reviewed as part of the pre-operative evaluation. [facility] Past Medical History Medical History Nausea and vomiting Pre-eclampsia affecting childbirth Overweight (BMI 25.0-29.9) Depression Anxiety Asthma Chiari malformation decompression surgery Surgical History Surgical History H/O laparoscopy H/O craniotomy Hx of cholecystectomy Family History Family History Father High cholesterol Hypertension Mother Gilbert syndrome High cholesterol Migraines Kidney stones Endometriosis Hypertension Mitral valve prolapse Cerebrovascular accident Cholelithiases Sibling Migraines Asthma Grandparent Pancreatic cancer Ovarian cancer Lung cancer Hypertension Kidney disease Grandparent No problems noted. Grandparent Cerebrovascular accident Social History Social History Smoking status: Never smoker Second hand tobacco smoke exposure: No Alcohol intake: current Alcohol use details: OCCASIONALLY Substance use: never Substance use type: does not use Do You Feel Safe in your Home?: Yes Lack of Transportation: No Lack of Food: Never True Current Housing: I Have Housing Concerned About Future Housing: No Difficulty Paying Gas/Electric Bills: No Difficulty Paying for Meds: No Currently Unemployed: No Education: High School Diploma/GED Difficulty w/ Childcare or Family Care: No Living arrangements: with family Additional living arrangements comments: and children Spiritual care concerns: No Anes - Eval Final PreProcedure Day of Procedure 11/11/24 10:29 Patient weight: obese Heart: regular rate and rhythm Lungs: clear to auscultation Airway: Mallampati scale class II Neurological: alert and oriented Last oral intake: >/= 8 hours ASA classification: III Emergent: no Anesthetic plan: proceed Anesthesia type and monitoring: general ETT and standard monitoring Results Review: All pre-operative results and documents have been reviewed as part of the pre-operative evaluation. Informed Consent: The patient's anesthetic plan and its attendant risks and benefits were discussed with the patient/family/POA. Questions were solicited and answers provided to the satisfaction of the patient/family/POA.
[2024-11-11] MEDS: ceFAZolin 2 GM in SODIUM CHLORIDE 0.9% IV 50 ML 100 ML IVPB (10:48)
--- NOTE | 2024-11-11 12:06 | S_PTH ---
PATIENT: Cee Polanco LOC: [facility] U#:[id number] AGE/SX: 24/F ROOM: RE11/11/[address]: Timmy Dietz MD : 2000 BED: DIS: 11/12/2024 SPEC #: [id number] RECD: 11/11/24 12:37 STATUS: KAITLYNN REQ #: [id number] ANYI: 11/11/24 12:[address]: Timmy Dietz DEPT: [facility] RECD BY: Michael Mauro ENTERED: 11/11/24 12:37 SP TYPE: Surgical OTHR DR: DEVELOPER AUTOMATIC PHYSICIAN Tissues: A - Uterus Procedures: Hematoxylin and Eosin Stain Gross and Microscopic Level 5
[2024-11-11] MEDS: METHYLENE BLUE 0.5% INJ 10 ML AMPULE IV PUSH (12:35)
--- NOTE | 2024-11-11 12:58 | P.OP_ITS ---
Procedure Note - Detailed Date of Procedure 11/11/24 Pre-op Diagnosis pelvic pain Post-op Diagnosis Same Procedure Performed Robot assisted Total hysterectomy Surgeon Timmy Dietz MD Anesthesia General Indications heavy vaginal bleeding, pelvic pain Findings normal-appearing uterus, ovaries Description of Procedure This patient was taken to the operating room. She was prepped and draped in the dorsal lithotomy position after induction of general anesthesia. The uterine manipulator and Kailey cup were placed. This was done with a speculum and tenaculum. The speculum was placed. The cervix was grasped with a tenaculum. The stay sutures were placed at 3 and 9:00 a.m.. The stay sutures of 0 Vicryl were tied to the appropriately Size scope after it was slipped around the cervix.. The tip of the JESSICA manipulator was placed in the intrauterine cavity. The cup was slid into place around the cervix and into the fornices. It was locked into place. The sutures were then wrapped around the h andle and tied under tension. A 8 mm skin incision was made in the left upper quadrant the abdomen. a 5 mm Visiport trocar was inserted into abdominal cavity and pneumoperitoneum was achieved. A 8 mm supraumbilical incision was made and a 8 mm trocar was inserted into the intrauterine cavity under direct visualization of the scope. an 8 mm incision was made in the right upper quadrant of the abdomen and an 8 mm robotic trocar was placed the inter uterine cavity under direct visualization the scope. An 11 mm trocar was inserted in the right upper quadrant of the abdomen rectal is a cystoscope after an incision was made there as well. The robot was docked. Electronic Orientation of the robot was performed. Bilateral ureteral lysis was performed. This was done from the pelvic brim down to the uterine artery. This was done with careful dissection using sharp and blunt dissection. In a stepwise fashion along the lateral aspects of the uterus the round ligament and broad ligaments were cauterized transected down to the level of the uterine arteries. A bladder flap was created in the bladder was moved distally to the end of the cervix and over the Kailey cup. The bilateral uterine arteries were cauterized and transected. Colpotomy was then performed. In a circumferential fashion the vagina was transected using unipolar cautery. The incision was made down on the Kailey cup. The uterus and cervix were taken out through the vagina. A pneumo occluder was placed in the vagina. The vaginal cuff was closed with a 0 V lock suture in a running fashion. The pelvis was irrigated with copious amounts antibiotic irrigation. The ureters were again examined and found to be intact and flowing freely under the uterine arteries into the bladder. The bladder was intact. It was examined directly. Cystoscopy was performed after administration of methylene blue. The cystoscope was inserted. Bladder was distended with fluid. The ureteric meatus was observed bilaterally. Blue fluid was seen to egress bilaterally. The bladder was drained and the cystoscope was withdrawn. The vagina was irrigated with Betadine solution after removal of the Pneumo occluder. the trocars were removed after the robot was undocked. The skin was closed with subacute or Dermabond. The patient was taken to recovery room. She was stable condition. Sponge lap and needle counts were correct x2. Estimated Blood Loss 125 Urine Output 800 Drains Yes Packing No Pathology Yes Complications No immediate complications Condition Stable Disposition Floor
[2024-11-11] MEDS: fentaNYL CITRATE INJ (*CRX) 100 MCG/2 ML VIAL 25 MCG IV PUSH ×8 (13:25→14:22)
[2024-11-11] MEDS: oxyCODONE HCL (*CRX) 5 MG TAB IR PO ×2 (15:27→19:30)
[2024-11-11] MEDS: DEXTROSE 5%/0.45% SOD CHL 1,000 ML 125 ML IV CONT (15:28)
[2024-11-11] MEDS: KETOROLAC 30 MG/ML VIAL (*BKC) IV PUSH ×2 (16:57→23:05)
[2024-11-11] MEDS: SIMETHICONE 80 MG TAB.CHEW PO (16:58)
[2024-11-11] MEDS: DOCUSATE SODIUM 100 MG CAPSULE PO (16:58)
[2024-11-12 00:15] VITALS: BP 110/60; PULSE 87; RESP 18; TEMP 36.7; O2SAT 98
[2024-11-12] MEDS: KETOROLAC 30 MG/ML VIAL (*BKC) IV PUSH (04:30)
[2024-11-12] MEDS: ACETAMINOPHEN 500 MG TABLET 1000 MG PO (04:30)
[2024-11-12 04:35] VITALS: BP 116/76; PULSE 63; RESP 17; TEMP 36.7; O2SAT 98
[2024-11-12 07:05] VITALS: BP 118/76; PULSE 66; RESP 16; TEMP 37; O2SAT 99
[2024-11-12] MEDS: SIMETHICONE 80 MG TAB.CHEW PO (07:07)
[2024-11-12] MEDS: DOCUSATE SODIUM 100 MG CAPSULE PO (07:07)
[2024-11-12] MEDS: oxyCODONE HCL (*CRX) 5 MG TAB IR PO (07:07)
--- NOTE | 2024-11-12 08:51 | P.PNOB_ITS ---
ROOF PLUMBER - A/P Postoperative Procedures: Procedures Operation Date: 11/11/24 10:30 Actual Procedure Side Surgeon p Robotic Assisted Total Hysterectomy Timmy Dietz MD Time Spent With Patient Time: Total time spent is greater than 50% in coordination of care (as documented) at patient's floor/unit and/or counseling patient: Time with patient: less than 15 minutes ROOF PLUMBER- PN:Subj Post-Op Subjective Date/time seen: 11/12/24 08:51 Exam 2 Const: General: comfortable, no acute distress and alert Resp: Effort & Inspection: normal respiratory effort Auscultation: no crackles, no rales and no rhonchi Cardio: Rate: regular rate Heart sounds: no click, no murmurs and no rubs GI: Inspection: non-distended GI Palp: No Tenderness to palpation present (GI) Auscultation: normal bowel sounds Other: Incision - CDI Extrem: General: normal to inspection, no pedal edema and no calf tenderness ROOF PLUMBER - PN: Obj Data Vital Signs Vital Signs: Vital Signs - 24 hr 11/11/24 13:00 11/11/24 13:15 11/11/24 13:30 Temperature 98.3 F Pulse Rate 88 77 82 Respiratory Rate 18 22 H 16 Blood Pressure 160/109 H 120/68 128/89 Pulse Oximetry 98 96 96 Oxygen Delivery Room Air Room Air Room Air 11/11/24 13:45 11/11/24 14:00 11/11/24 14:15 Temperature Pulse Rate 85 99 92 Respiratory Rate 16 16 16 Blood Pressure 121/81 135/80 129/78 Pulse Oximetry 97 96 95 Oxygen Delivery Room Air Room Air Room Air 11/11/24 14:40 11/11/24 14:47 11/11/24 18:50 Temperature 97.7 F 97.7 F Pulse Rate 90 91 Respiratory Rate 16 24 H Blood Pressure 119/69 110/68 Pulse Oximetry 98 98 Oxygen Delivery Room Air 11/12/24 00:15 11/12/24 00:15 11/12/24 04:35 Temperature 98.1 F Pulse Rate 87 87 63 Respiratory Rate 18 18 17 Blood Pressure 110/60 Pulse Oximetry 98 98 98 Oxygen Delivery Room Air Room Air 11/12/24 04:35 Temperature 98.1 F Pulse Rate 63 Respiratory Rate 17 Blood Pressure 116/76 Pulse Oximetry 98 Oxygen Delivery Intake/Output Intake/Output: Intake & Output 11/09/24 11/10/24 11/11/24 11/12/24 23:59 23:59 23:59 23:59 Intake Total 600 Output Total 3200 Balance -2600 Meds/Results Medications: Active Medications Generic Name Dose Route Start Last Admin Trade Name Rejiq PRN Reason Stop Dose Admin Acetaminophen 1,000 mg 11/11/24 18:00 11/12/24 04:30 Acetaminophen 500 Mg Tablet PO 1,000 mg Q6HR CARLOS Administration Docusate Sodium 100 mg 11/11/24 17:00 11/12/24 07:07 Docusate Sodium 100 Mg Capsule PO 100 mg BID CARLOS Administration Dextrose/Sodium Chloride 1,000 mls @ 125 mls/hr 11/11/24 13:05 11/11/24 15:28 Dextrose 5% Sodium Chloride 0.45% IV CONT 125 mls/hr .Q8H CARLOS Administration Ibuprofen 600 mg 11/12/24 12:00 Ibuprofen 600 Mg Tablet PO Q6HR CARLOS Naloxone HCl 0.1 mg 11/11/24 13:02 Naloxone Hcl 0.4 Mg/Ml Vial IV PUSH Q2M PRN Respiratory rate less than 10 Ondansetron HCl 4 mg 11/11/24 13:02 Ondansetron Inj 4 Mg/2 Ml Vial IV PUSH Q6H PRN Nausea And Vomiting Oxycodone HCl 5 mg 11/11/24 13:02 11/12/24 07:07 Oxycodone Hcl (*Crx) 5 Mg Tab Ir PO 5 mg Q4H PRN Administration Pain Rated 4-6 Oxycodone HCl 10 mg 11/11/24 13:02 Oxycodone Hcl (*Crx) 5 Mg Tab Ir PO Q6H PRN Pain Rated 7-10 Simethicone 80 mg 11/11/24 17:00 11/12/24 07:07 Simethicone 80 Mg Tab.Chew PO 80 mg TIDWM CARLOS Administration Labs 11/11/24 09:13 Labs: Laboratory Results - last 24 hr 11/11/24 11/11/24 08:47 09:13 Sodium 136 L Potassium 4.2 Chloride 106 Carbon Dioxide 22 Anion Gap 8 BUN 9 D Creatinine 0.65 L Estim Creat Clear Calc 119 Estimated GFR > 60 Glucose 101 Calcium 9.4 POC Urine HCG, Qual Negative
--- NOTE | 2024-11-12 09:46 | WPDANESPN ---
Anes - Prog Note Post-Op Date/Time: 11/12/24 09:46 Cardiovascular status: normal Respiratory status: normal Airway patency: baseline Mental status: baseline Post-Op hydration status: normal Vital Signs: Last Vital Signs Temp 36.7 C 11/12/24 04:35 Pulse 63 11/12/24 04:35 Resp 17 11/12/24 04:35 BP 116/76 11/12/24 04:35 Pulse Ox 98 11/12/24 04:35 O2 Del Method Room Air 11/12/24 04:35 Pain Score (VAS): 2 I/O: Intake & Output 11/11/24 11/12/24 11/12/24 23:59 07:59 15:59 Output Total 1900 500 Balance -1900 -500 Laboratory Tests 11/11/24 09:13 Patient Feedback: Patient satisfied with anesthetic care.
== END 2024-11-12 10:22 | disposition home or self-care (01) ==
LOC: ANHSURGERY 13:34 → ANHOB2 14:34
PROVIDERS: Anesthesiology; Visit Provider Obstetrics & Gynecology
PROC: (CPT 58570; principal; 2024-11-11 10:30)
DX: N80.00 Endometriosis of the uterus, unspecified (principal); I10 Essential (primary) hypertension; F41.9 Anxiety disorder, unspecified; J45.909 Unspecified asthma, uncomplicated; F32.A Depression, unspecified; G93.5 Compression of brain; G89.18 Other acute postprocedural pain; E66.9 Obesity, unspecified; Z68.34 Body mass index [BMI] 34.0-34.9, adult; Z79.84 Long term (current) use of oral hypoglycemic drugs; Z98.890 Other specified postprocedural states; Z98.51 Tubal ligation status; Z90.49 Acquired absence of other specified parts of digestive tract; Z80.41 Family history of malignant neoplasm of ovary; Z80.0 Family history of malignant neoplasm of digestive organs; Z80.1 Family history of malignant neoplasm of trachea, bronchus and lung
CPT/HCPCS: 58570; S2900; 36415; 80048; 88307; 99199; J0690; A9270; J1100; J1171; J1885; J2003; J2250; J2405; J2704; J3010; J7030; J7120; Q9968

== ENCOUNTER 2025-01-21 08:43 | Outpatient (CLI) | payer OTHER, SELFPAY ==
--- OUTSIDE RECORDS SUMMARY | 2018-09-17 02:50 | XMS_ITS | Continuity of Care Document ---
Author Organization [facility] Address [address] [place] [address] Phone Care Team Providers Care Relocation Counselor Name Role Phone Brandon Tay MD Unavailable Unavailable Allergies, Adverse Reactions, Alerts Substance Reaction Status Criticality trimethoprim Active No Information sulfamethoxazole Active No Informat ion POTASSIUM CLAVULANATE Active No Inf ormation AMOXICILLIN TRIHYDRATE Active No In formation Medications Medication Instructions Dosage Effective Dates (start - stop) Status Comments Mirena 20 mcg/24 hours (5 yrs) 52 mg intrauterine device - Active Vitamin D2 50,000 unit capsule take 1 capsule by oral route every week - Active Zyrtec 10 mg capsule - Active Topamax 25 mg tablet take 1 tablet by oral route every day 25 MG - Active Zoloft 25 mg tablet take 1 tablet by oral route every day 25 MG - Active SINGULAIR (unknown strength) Not Available - Active Procedures Procedure Date OFFICE/OUTPATIENT VISIT EST OFFICE/OUTPATIENT VISIT EST Advance Directives Directive Yes / No Effective Date File Name No Information Encounters Encounter Description Practice Location Reason(s) For Visit Diagnoses Date Provider Providers Copied on Encounter OFFICE/OUTPAT IENT VISIT EST [facility], [address], [place], [address], [place] tel:[phone] [facility] Tear of left acetabular labrum, initial encounter 9 Jasvir Taylor. [address], [place], [place], [id number] , [place]. tel: [phone] [facility], [address], [place], [address], [place] tel:[phone] [facility] Pain in left hip Aug-0 9 Tay Brandon. [address], [place], [place], [id number] , [place]. tel: [phone] OFFICE/OUTPAT IENT VISIT EST [facility], [address] [place] [address] [address], [place], [address], [place] tel:[phone] [facility] Body mass index (BMI) 28.0-28.9, adultPain of both hip jointsPain in left hip Aug-0 9 Tay Brandon. [address], [place], [place], [id number] , [place]. tel: [phone] Referring Provider: Ivan Brand, [address], [place], [address]. tel:[phone] [facility], [address] [place] [address], [place], [address], [place] tel:[phone] [facility] [place] Sprain of other ligament of left ankle, subsequent encounter 6 Crystal Loni. [address], [place], [place], [id number] . tel: [phone] [facility], [address] [place] [address], [place], [address], [place] tel:[phone] [facility] Sprain of other ligament of left ankle, initial encounter 6 Crystal Loni. [address] [facility] [address], [address], [place], [place], [id number] . tel: [phone] [facility], [address] [place] [address], [place], [address], [place] tel:[phone] [facility] Foot sprainAnkle sprain 5 Crystal Loni. [address] [facility] [address], [address], [place], [place], [id number] . tel: [phone] [facility], [address], [place], [address], tel:[phone] [facility] Sprain of foot Nov- 5 Marah Ivey. [address], [address], [place], [place], [id number] . tel: [phone] Referring Provider: Esmer Alcaraz, [address], [place], [address]. tel:[phone] [facility], [address], [place], [address], [place] tel:[phone] [facility] Foot sprain Nov- 5 Micha Drew. [address], [place], [place], [id number] . tel: [phone] [facility], [address], [place], [address], [place] tel:[phone] [facility] Iliotibial band syndrome of left side 4 Clarence Evans. [address], [place], [address]. tel: [phone] Family History Family Member Type Diagnosis Age At Onset Paternal grandmother Problem (finding) hypertension Mother Problem (finding) Cardiovascular disease Brother Problem (finding) Alive and well Maternal grandfather Problem (finding) Diabetes mellit us Father Problem (finding) Alive and well Father Problem (finding) hypertension Mother Problem (finding) Alive and well Paternal grandmother Problem (finding) Renal disease Mother Problem (finding) hypertension Paternal grandmother Problem (finding) Alive and well Maternal grandmother Problem (finding) Maternal grandmother Problem (finding) malignant neopl asm of ovary Maternal grandfather Problem (finding) Renal disease Paternal grandfather Problem (finding) Payers Payer name Insurance type Covered democrat ID Authorbimala sally(s) [place] [address] [place] [id number] [facility] [id number] Social History Type Description Quantity Date Captured Comments Alcohol Use Details Unknown Caffeine Use Details Unknown Tobacco Use Status No Information Smoking Status No Information Sex Female Chief Complaint And Reason For Visit No Information Reason For Referral Reason For Referral No Information Plan Of Treatment Date Type Action Status Referral Ordered: MRI ANY JT LXTR C+ MATRL LT hip Appointment date/timeframe: 09/15/2018 ordered Referral Ordered: X-RAY EXAM HIPS BI W PELVIS 3-4 VIEWS ordered Referral Ordered: X-RAY EXAM HIPS BI W PELVIS 3-4 VIEWS LT ordered Referral Ordered: X-RAY EXAM HIPS BI W PELVIS 3-4 VIEWS RT ordered Referral Ordered: RADEX ANKLE COMPL MINIMUM 3 VIEWS LT ordered Referral Ordered: RADEX FOOT 2 VIEWS LT ordered History Of Present Illness Encounter Date Complaint History Of Prese nt Illness No Information Functional Status Date Functional Assessmen t No Information Instructions Date Instruction Additional Infor mation Giving encouragement to exercise Related to Body mass index (BMI) 28.0-28.9, adult Assessments Type Assessment Date assessment Tear of left acetabular labrum, initial encounter Patient Care Teams Name Effective Dates (start - stop) Status Members No Information
--- OUTSIDE RECORDS SUMMARY | 2019-11-06 01:30 | XMS_ITS | Continuity of Care Document ---
Author Organization [facility] Address [address] [address] [place] [address] Phone Care Team Providers Care Lost And Found Clerk Name Role Phone Anthony Moore PTA Unavailable Unavailable Procedures Procedure Date Manual Therapy Therapeutic Exercise Neuromuscular Re-Ed Therapeutic Activities Therapeutic Exercise Neuromuscular Re-Ed Therapeutic Activities Progress Note Manual Therapy Therapeutic Activities Neuromuscular Re-Ed Therapeutic Exercise Manual Therapy Therapeutic Activities Neuromuscular Re-Ed Therapeutic Exercise Manual Therapy Manual Therapy Therapeutic Exercise Neuromuscular Re-Ed Therapeutic Activities Therapeutic Activities Manual Therapy Therapeutic Exercise Neuromuscular Re-Ed Therapeutic Activities Manual Therapy Therapeutic Exercise Neuromuscular Re-Ed Manual Therapy Therapeutic Exercise Neuromuscular Re-Ed Therapeutic Activities Progress Note Therapeutic Exercise Neuromuscular Re-Ed Therapeutic Activities Manual Therapy Neuromuscular Re-Ed Therapeutic Exercise Manual Therapy Therapeutic Exercise Neuromuscular Re-Ed Manual Therapy Therapeutic Activities Neuromuscular Re-Ed Therapeutic Exercise Manual Therapy Neuromuscular Re-Ed Manual Therapy Therapeutic Exercise Therapeutic Activities Therapeutic Exercise Manual Therapy PT Evaluation Low Complexity Manual Therapy Therapeutic Exercise PT Re-evaluation Neuromuscular Re-Ed Therapeutic Activities Therapeutic Exercise Therapeutic Activities Neuromuscular Re-Ed Therapeutic Exercise Manual Therapy Therapeutic Activities Neuromuscular Re-Ed Therapeutic Exercise Manual Therapy Therapeutic Activities Neuromuscular Re-Ed Manual Therapy Therapeutic Exercise Hot or Cold Pack Therapeutic Activities Neuromuscular Re-Ed Therapeutic Exercise Hot or Cold Pack Manual Therapy Therapeutic Exercise Therapeutic Activities Neuromuscular Re-Ed Manual Therapy Hot or Cold Pack Therapeutic Exercise Therapeutic Activities Neuromuscular Re-Ed Manual Therapy Hot or Cold Pack Therapeutic Exercise Therapeutic Activities Manual Therapy Neuromuscular Re-Ed Hot or Cold Pack Therapeutic Exercise Therapeutic Activities Manual Therapy Neuromuscular Re-Ed Hot or Cold Pack Therapeutic Exercise Therapeutic Activities Manual Therapy Neuromuscular Re-Ed Hot or Cold Pack Therapeutic Exercise Neuromuscular Re-Ed Therapeutic Activities Manual Therapy Hot or Cold Pack Therapeutic Exercise Therapeutic Activities Neuromuscular Re-Ed Manual Therapy Hot or Cold Pack Therapeutic Exercise Therapeutic Activities Neuromuscular Re-Ed Manual Therapy Hot or Cold Pack Therapeutic Exercise Therapeutic Activities Neuromuscular Re-Ed Manual Therapy Therapeutic Exercise Therapeutic Activities Neuromuscular Re-Ed Manual Therapy PT Evaluation Low Complexity Therapeutic Exercise Therapeutic Activities Neuromuscular Re-Ed Therapeutic Exercise Therapeutic Activities Neuromuscular Re-Ed Manual Therapy Therapeutic Exercise Therapeutic Activities Neuromuscular Re-Ed Manual Therapy PT Evaluation Moderate Complexity Therapeutic Exercise Therapeutic Activities Neuromuscular Re-Ed Manual Therapy Advance Directives Directive Yes / No Effective Date File Name No Information Encounters Encounter Description Practice Location Reason(s) For Visit Diagnoses Date Provider Providers Copied on Encounter [facility], [address] [facility] [address], [place], [place], [id number], [place] tel:[phone] [place] No Information 0 Teresa Cruz. [address] [facility], [address], [place], [address], [place]. tel:[phone] Referring Provider: Lefty Gomez [address], [place], [address]. tel:[phone] [facility], [address], [place], [place], [id number], [place] tel:[phone] [place] No Information 0 Artie Sinha. . Referring Provider: Lefty Gomez [facility] [address], [place], [address]. tel:[phone] [facility] [address], [place], [place], [id number], [place] tel:[phone] [place] No Information 0 Teresa Cruz. [address] [place] [address], [address], [place], [address], [place]. tel:[phone] Referring Provider: Lefty Gomez [facility] [address], [place], [address]. tel:[phone] [facility] [address], [place], [place], [id number], [place] tel:[phone] [place] No Information 0 Teresa Cruz. [address] [place] [address], [address], [place], [address], [place]. tel:[phone] Referring Provider: Lefty Gomez [facility] [address], [place], [address]. tel:[phone] [facility] [address], [place], [place], [address], [place] tel:[phone] [place] No Information 0 Teresa Cruz. [address] [place] [address], [address], [place], [address], [place]. tel:[phone] Referring Provider: Lefty Gomez [facility] [address], [place], [address]. tel:[phone] [facility], [address], [place], [place], [id number], [place] tel:[phone] [place] No Information 0 Teresa Cruz. [address] [place] [address], [address], [place], [address], [place]. tel:[phone] Referring Provider: Nathan Holden [address], [place], [address]. tel:[phone] [place] [address], [place], [place], [id number], [phone] [place] No Information 0 Teresa Cruz. [address] [place] [address], [address], [place], [place], [facility], [place]. tel:[phone] Referring Provider: Lefty Gomez [address], [place], [address]. tel:[phone] [address], [place], [place], [id number], tel:[phone] [place] No Information 0 Teresa Cruz. [address] [place] [address], [address], [place], [place], [facility], [place]. tel:[phone] Referring Provider: Lefty Gomez [address], [place], [address]. tel:[phone] [place] [address], [place], [place], [address], [phone] [place] No Information 0 Artie Sinha. . Referring Provider: Lefty Gomez [address], [place], [address]. tel:[phone] [place] [address], [place], [id number], [place] [phone] [place] No Information 0 Teresa Cruz. [address] [place] [address], [address], [place], [place], [facility], [place]. tel:[phone] Referring Provider: Nathan Holden [address], [place], [address]. tel:[phone] [facility] [address], [place], [place], [id number], [place] tel:[phone] [place] No Information 0 0 Alva Bharath. . Referring Provider: Nathan Holden, [address] [facility] [address], [place], [address]. tel:[phone] [facility], [address], [place], [place], [address], tel:[phone] [place] No Information 0 Teresa Cruz. [address] [place] [address], [address], [place], [place], [facility], . tel:[phone] Referring Provider: Lefty Gomez [facility] [address], [place], [address]. tel:[phone] [facility] [address], [place], [place], [id number], tel:[phone] [place] No Information 0 Alva Bharath. . Referring Provider: Lefty Gomez [facility] [address], [place], [address]. tel:[phone] [facility] [address], [place], [place], [address], [place] tel:[phone] [place] No Information 0 Teresa Cruz. [address] [place] [address], [address], [place], [place], [facility], . tel:[phone] Referring Provider: Lefty Gomez [facility] [address], [place], [address]. tel:[phone] [facility] [address], [place], [place], [address], [place] tel:[phone] [place] No Information 0 Alva Bharath. . Referring Provider: Lefty Gomez [facility] [address], [place], [address]. tel:[phone] [facility] [address], [place], [address], [place] tel:[phone] [place] No Information Sep-2 - 9 Threljessluci Shannan. . Referring Provider: Lefty [address], [place], [address]. tel:[phone] [address], [place], [place], [address], tel:[phone] [place] No Information Sep-1 9 Teresa Cruz. [address] [place] [address], [address], [place], [place], [facility], [place]. tel:[phone] Referring Provider: Nathan Holden [address], [place], [address]. tel:[phone] [address], [place], [place], [address], tel:[phone] [place] No Information Sep-1 2 9 Teresa Cruz. [address] [place] [address], [address], [place], [place], [facility], [place]. tel:[phone] Referring Provider: Lefty [address], [place], [address]. tel:[phone] [address], [place], [place], [address], [place] tel:[phone] [place] No Information Sep-0 9 Teresa Cruz. [address] [place] [address], [address], [place], [place], [facility], [place]. tel:[phone] Referring Provider: Lefty [address], [place], [address]. tel:[phone] [address], [place], [place], [id number], [place] tel:[phone] [place] No Information Sep-0 3 9 Teresa Cruz. [address] [place] [address], [address], [place], [address], [place]. tel:[phone] Referring Provider: Lefty [address], [place], [address]. tel:[phone] [facility] [address], [place], [address], [place] tel:[phone] [place] No Information 9 Teresa Cruz. [address] [place] [address], [address], [place], [place], [facility], [place]. tel:[phone] Referring Provider: Lefty [address], [place], [address]. tel:[phone], [place], [id number], [place] tel:[phone] [place] No Information Teresa Cruz. [address] [place] [address], [address], [place], [place], [facility], [place]. tel:[phone] Referring Provider: Lefty Gomez [facility] [address], [place], [address]. tel:[phone] [facility] [address], [place], [place], [address], [place] tel:[phone] [place] No Information Teresa Cruz. [address] [place] [address], [address], [place], [address], [place]. tel:[phone] Referring Provider: [address], [place], [address]. tel:[phone] [facility] [address], [place], [address], [place] tel:[phone] [place] No Information Teresa Cruz. [address] [place] [address], [address], [place], [address], [place]. tel:[phone] Referring Provider: Lefty [address], [place], [address]. tel:[phone] [facility] [address], [place], [address], [place] tel:[phone] [place] No Information 9 Teresa Cruz. [address] [facility], [address], [place], [address], [place]. tel:[phone] Referring Provider: [address], [place], [address]. tel:[phone] [facility], [address] [place], [place] [address], [place], [place], [address], [place] tel:[phone] [place] No Information 9 Teresa Cruz. [address] [facility], [address], [place], [address], [place]. tel:[phone] Referring Provider: [address], [place], [address]. tel:[phone] [address], [place], [place], [address], [place] tel:[phone] [place] No Information 9 Teresa Cruz. [address] [place] [address], [address], [place], [address], [place]. tel:[phone] Referring Provider: Lefty [address], [place], [address]. tel:[phone] [address], [place], [address], [place] tel:[phone] [place] No Information Teresa Cruz. [address] [place] [address], [address], [place], [address], [place]. tel:[phone] Referring Provider: Lefty [address], [place], [address]. tel:[phone] [address], [place], [place], [address], [place] tel:[phone] [place] No Information 9 Salvador Cantu . Referring Provider: Lefty [address], [place], [address]. tel:[phone] [facility], [place], [place], [address], [place] tel:[phone] [place] No Information 9 Sandra Hicks. . Referring Provider: Lefty Gomez [address], [place], [address]. tel:[phone] [facility], [place], [place], [address], [place] tel:[phone] [place] No Information Artie Sinha. . Referring Provider: Nathan Holden [address], [place], [address]. tel:[phone] [facility], [place], [place], [address], [place] tel:[phone] [place] Pain in right hipOth symptoms and signs involving the musculoskeletal system 9 Teresa Cruz. [address] [place] [address], [address], [facility], . tel:[phone] Referring Provider: Brandon Rivas, [address] [facility] [address], [place], [address]. tel:[phone] [facility] [address] [place], [place] [address], [place], [place], [address], [place] tel:[phone] [place] Pain in right hipOth symptoms and signs involving the musculoskeletal system 9 Teresa Cruz. [address] [facility], [address], [place], [place], [facility], [place]. tel:[phone] Referring Provider: Brandon Rivas, [address] [facility] [facility] [address], [place], [address]. tel:[phone] [facility], [place], [address], [place] tel:[phone] [place] Pain in right hipOth symptoms and signs involving the musculoskeletal system Geni Campbell. . Referring Provider: Brandon Rivas, [address] [facility] [facility] [address], [place], [address]. tel:[phone] Family History Family Member Type Diagnosis Age At Onset No Information Payers Payer name Insurance type Covered constitution party ID Authoralejandro zavala(s) [facility] [id number] Social History Type Description Quantity Date Captured Comments Sex Female Smoking Status No Information Chief Complaint And Reason For Visit No Information Reason For Referral Reason For Referral No Information History Of Present Illness Encounter Date Complaint History Of Prese nt Illness No Information Functional Status Date Functional Assessmen t No Information Instructions Date Instruction Additional Infor matreilly Giving encouragement to exercise Related to Overweight Assessments Type Assessment Date No Information Patient Care Teams Name Effective Dates (start - stop) Status Members No Information
--- OUTSIDE RECORDS SUMMARY | 2025-01-21 17:24 | XMS_ITS | Clinical Summary ---
Author Organization [facility] Address [address] [place] [address] Care Team Providers Care Ladies' Locker Room Attendant Name Role Phone Ivan Brand MD Primary Care Provider [phone] Source Comments [facility],non-owned Affiliates and Associated Physician Practices is amultiple site organization consisting of ambulatory clinics and hospital sitesin [place], [place], [place] and [place]. This disclosure is being madepursuant to the Care Everywhere program and may not contain all information available regarding this patient. Last updated 17.[facility] Allergies Active Allergy Reactions Criticality Noted Date [...] Overview (10/03/2023): cardiology referral sent to [facility] cardiology - appt? 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): Longstanding history of asthma which has been [...] school year F/U 3 months here at [place] Abdominal pain, generalized 2012 03/07/2020 Diarrhea 2012 [...] on file Legal Sex Female 5:39 AM SOCIAL SECRETARY Gender Identity Not on file Sexual Orientation Not on file Last Filed Vital Signs Vital Sign Reading Time Taken Comments Blood Pressure 132/70 10/03/2023 3:11 PM CDT Pulse 117 06/22/2021 9:10 AM CDT Temperature 36.3 C (97.3 F) 06/22/2021 9:10 AM CDT Respiratory Rate 18 04/12/2017 10:14 AM SOCIAL SECRETARY per pcp Oxygen Saturation 97% 06/22/2021 9:10 AM CDT Inhaled Oxygen Concentration - - Weight 85.3 kg (188 lb) 10/03/2023 3:11 PM CDT Height 162.6 cm (5' 4) 10/03/2023 3:11 PM CDT Body Mass Index 32.27 10/03/2023 3:11 PM CDT Plan of Treatment Health Maintenance Due Date Last Done Comments HIV SCREENING 05/28/2014 HPV VACCINE (1 - 3-dose series) 05/28/2014 HEPATITIS C SCREENING 05/24/2017 DTAP/TDAP/TD VACCINES (1 - Tdap) 05/28/2018 HEPATITIS B VACCINE (1 of 3 - 19+ 3-dose series) 05/28/2018 DEPRESSION SCREENING 03/18/2024 CHLAMYDIA/GONORRHEA SCREENING 08/29/2024, 04/05/2021 COVID-19 VACCINE (4 - 2024-2 6 season) 2024 02/25/2021, 07/07/2020, 06/14/2020 INFLUENZA VACCINE (#1) 2024 03/27/2010 PAP SMEAR 08/29/2026 08/30/2023 ZOSTER VACCINE (1 of 2) 05/28/2049 HIB VACCINE Aged Out No longer eligi [...] to complete this topic Insurance [employer] [facility] SELF PAY NO INSURANCE Member Subscriber Plan / Payer (Ef fective for All Dates) Name:Cee Polanco Member ID:Not on file Relation to Subscriber:Not on file Name:CEE POLANCO Subscriber ID:Not on file (Home) Address: [address] [place] [address] Payer ID:Not on file Group ID:Not on file Type:Self Pay Address: [place], [place] [employer] [facility] Advance Directives * Full Code (Latest Code Status on File) Date Activated Date Inactivated Comments 06/04/2016 11:10 AM 06/06/2016 11:06 AM Care Teams Ladies' Locker Room Attendant Relationship Specialty Start Date End [place] [phone] PCP - General Internal Medicine 06/20/18
--- OUTSIDE RECORDS SUMMARY | 2025-01-21 17:24 | XMS_ITS | Encounter Summary ---
Author Organization [facility] Address [address] [place] [address] Care Team Providers Care Brass Polisher Name Role Phone Esmer Begum MD Primary Care Provider [phone] Ivan Brand MD Primary Care Provider [phone] Encounter Details Date Type Department Care Team (Late st Contact Info) Description 06/19/2018 Lab Requisition [facility] [address] [place] [id number] Kristen Oscar MD [address] [facility] [address] [place] [address] Social History Tobacco Use Types Packs/Day Years Used Date Smoking Tobacco: Passive Smo ke Exposure - Never Smoker Smokeless Tobacco: Never Alcohol Use Standard Drinks/Week Comments No 0 (1 standard drink = 0.6 oz pur e alcohol) Comments No Sex and Gender Information Value Date Recorded Sex Assigned at Not on file Legal Sex 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 Answer Date of Assessment Author No 06/04/2016 9:15 PM CDT Sana Rutherford, ROVING TESTER LABORATORY-IRRIGATOR GRAVITY FLOW * Does person have difficulty doing errands alone? Answer Date of Assessment Author No 06/04/2016 9:15 PM CDT Sana Rutherford, ROVING TESTER LABORATORY-IRRIGATOR GRAVITY FLOW documented as of this encounter Mental Status * Does person have difficulty concentrating/remembering/making decisions? Answer Entry Date Author No 06/04/2016 9:15 PM CDT Sana Rutherford, ROVING TESTER LABORATORY-IRRIGATOR GRAVITY FLOW documented in this encounter Plan of Treatment Not on file documented as of this encounter Procedures Procedure Name Priority Date/Time Associated Diagnosis Comments DERMATOPATHOLOGY Routine 06/18/2018 12:0 0 AM CDT documented in this encounter Results * DERMATOPATHOLOGY (06/18/2018 12:00 AM CDT) Case Report Dermatopathology Report Case: [id number] Authorizing Provider: Kristen Oscar MD Collected: 06/18/2018 12:00 AM Pathologist: Melissa Garcia MD Received: 06/19/2018 06:54 AM Specimen: Skin, left cheek 12:37 PM CDT DERMATOPATHOLOGY LABORATORY Final Diagnosis Specimen A. SKIN, left cheek: LENTIGINOUS MELANOCYTIC NEVUS, COMPOUND TYPE, IRRITATED (COMPOUND MELANOCYTIC NEVUS WITH ARCHITECTURAL DISORDER) (D22.39) 9 12:37 PM CDT DERMATOPATHOLOGY LABORATORY at 1237 CDT Clinical History R/O halo nevus. [place] bower papule with depia path surrounding. 9 12:37 PM CDT DERMATOPATHOLOGY LABORATORY Gross Description Specimen A: Received is one formalin filled container labeled with the patient's name and designated left cheek. The specimen consists of a shave measuring [id number]. Jar 0. 12:37 PM CDT DERMATOPATHOLOGY LABORATORY [...] determined by the Dermatopathology Laboratory at [facility], directed by Dr. Casey Franicsco. These tests need not be, and therefore are not, approved by the [place] Food and Drug Administration. The tests are used for clinical purposes. Billing Codes Specimen Charges Stain Charges 08921 1 9 12:37 PM CDT DERMATOPATHOLOGY LABORATORY Embedded Images 12:37 PM CDT DERMATOPATHOLOGY LABORATORY Pathology/Cytolog y TISSUE SPECIMEN FROM SKIN / Unknown 06/18/2018 06/19/2018 6:54 AM CDT Kristen Oscar MD LAB - PATHOLOGY/CYTOLOGY ORD ERABLES Final Result DERMATOPATHOLOGY LABORATORY [facility] - Department of Dermatology [address] [place] [address], [address] [place] [address], [facility] [phone] documented in this encounter Visit Diagnoses Not on filedocumented in this encounter Care Teams Brass Polisher Relationship Specialty Start Date End Date Esmer Begum MD PCP - General Pediatrics 07/04/16 06/19/18 [place] [id number] PCP - General Internal Medicine 06/20/18 documented as of this encounter
--- OUTSIDE RECORDS SUMMARY | 2025-01-21 17:24 | XMS_ITS | Clinical Summary ---
Author Organization [facility] Address [address] [place] [address] Phone Care Team Providers Care Judicial Clerk Name Role Phone Provider, None Primary Care [...] 160 cm (5' 3) 04/24/2022 1:46 AM BAR GAUGER AND LUBRICATOR TENDER Body Mass Index 35.43 04/24/2022 1:46 AM BAR GAUGER AND LUBRICATOR TENDER Plan of Treatment Health Maintenance Due Date Last Done Comments Hepatitis C Virus (HCV) Screening 1999 Pap Smear 05/28/2020 SARS-COV-2 Immunization ( season) 2024 02/25/2021, 07/07/2020, 06/14/2020 DTaP/Tdap/Td Immunization (10 - [...] patient's age to complete this topic Insurance Member Subscriber Plan / Payer (Ef fective 2022-Present) Name:Cee Polanco Relation to Subscriber:Spouse Name:JOSY POLANCO Date of :1972 (Home) Address: [address] [place], [place] [id number] Payer ID:[id number] (NAIC) Type:Not on file Address: [address] [place] [address] MEDICAID BL[place] Care Teams Judicial Clerk Relationship Specialty Start Date End Date Provider, None [place] PCP - General 06/26/24
[2025-01-21 19:49] LABS: Hematocrit 44.5 % (37.0-47.0); Hemoglobin 14.2 g/dL (12.0-15.0); Mean Corpuscular HGB Conc 31.9 g/dl (32-36); Mean Corpuscular Hemoglobin 30.3 pg (26-34); Mean Corpuscular Volume 95.1 fl (80-100); Platelet Count Result 345 k/mm3 (150-375); Red Blood Count 4.68 M/mm3 (4.2-5.4); White Blood Count 7.9 K/mm3 (4.5-10.0)
[2025-01-21 19:58] LABS: Free T4 Free Thyroxine 0.95 ng/dL (0.78-2.19)
[2025-01-21 20:08] LABS: Alanine Aminotransferase 48 U/L (6-35); Albumin Level 4.6 g/dL (3.5-5.1); Alkaline Phosphatase 85 U/L (38-126); Anion Gap 7 mmol/L (4-12); Aspartate Amino Transferase 77 U/L (14-36); Bilirubin,Total 0.8 mg/dL (0.2-1.3); Blood Urea Nitrogen 9 mg/dL (7-17); Calcium 9.2 mg/dL (8.4-10.2); Carbon Dioxide 21 mmol/L (22-30); Chloride 106 mmol/L (98-107); Cholesterol 170 mg/dL (0-200); Estimated Glomerular Filt Rate > 60; Glucose 86 mg/dL (65-110); HDL Direct 57 mg/dL; Potassium 4.0 mmol/L (3.4-5.0); Sodium 134 mmol/L (137-145); Total Protein 7.3 g/dL (6.3-8.2); Triglycerides 54 mg/dL (<150)
[2025-01-21 20:17] LABS: Hemoglobin A1C 5.0 % (<5.7)
[2025-01-21 20:39] LABS: Thyroid Stimulating Hormone 1.580 uIU/mL (0.465-4.680)
[2025-01-22 16:08] LABS: ANA by IFA Rfx Titer/Pattern Negative (.)
== END 2025-01-21 08:44 | disposition home or self-care (01) ==
LOC: ANHBWCLAB 08:43
PROVIDERS: PCP Nurse Practitioner Adult Health; Visit Provider Nurse Practitioner Adult Health
DX: Z00.00 Encounter for general adult medical examination without abnormal findings (principal); Z82.69 Family history of other diseases of the musculoskeletal system and connective tissue
CPT/HCPCS: 36415; 80053; 80061; 83036; 84439; 84443; 85027; 86038; 86376; 86430